=== PATIENT | female | born 1940 | race Caucasian/White ===

== ENCOUNTER 2022-09-22 21:16 | Outpatient (CLI) | payer MEDICARE, OTHER, SELFPAY | END 2022-09-22 21:17 | disposition home or self-care (01) | LOC: AMB 10-17 21:17 | PROVIDERS: PCP Family Medicine; Visit Provider Emergency Medicine Emergency Medical Services | DX: R41.82 Altered mental status, unspecified (principal); R26.9 Unspecified abnormalities of gait and mobility | CPT/HCPCS: A0425; A0427 ==

== ENCOUNTER 2022-09-22 21:48 | Emergency (ER) | payer MEDICARE, OTHER, SELFPAY ==
--- NOTE | 2022-09-22 21:58 | ED_ITS ---
HPI - General Adult General Chief complaint: Neuro Symptoms/Altered Deficit Stated complaint: Stroke Symptoms Time Seen by Provider: 09/22/22 21:57 History of Present Illness HPI narrative: This 81-year-old female comes in by ambulance because of brief episodes of tilting to the left. This started initially 5 hours ago and lasted for about a minute where she felt like she was going to fall over to the left. She recovered after about a minute and then again this happened similarly a bit later. Another episode with similar symptoms lasted about 5 minutes perhaps. She feels back to normal now at this time. Her states that she had different speech at that time. She does not report any headache. She states that she takes a baby aspirin daily. Related Data Previous Rx's Medication Instructions Recorded alprazolam 0.25 mg tablet 0.25 mg PO TID PRN anxiety #24 tabs 06/01/22 Allergies Allergy/AdvReac Type Severity Reaction Status Date / Time No Known Drug Allergies Allergy Verified 09/22/22 21:59 Review of Systems Status of ROS: Reports: 10 or more systems reviewed and unremarkable except as noted in History and below Narrative: Constitutional: No fevers, no weight gain or loss. Eyes: No discharge. No vision changes. HENT: No congestion, no sore throat, no ear pain. Cardiovascular: No chest pain, no palpitations. Respiratory: No shortness of breath, no wheezes, no cough. Gastrointestinal: No abdominal pain, no vomiting, no diarrhea. Genitourinary: No dysuria, no hematuria. Musculoskeletal: Normal range of motion. Skin: No rashes, no pruritis. Neurological: Brief episodes of tilting to the left as described above. Endo/Heme/Allergies: No bruising or bleeding. No polydipsia. Pysch: no suicidality, no anxiety, no insomnia. All other systems reviewed and are negative. Exam Narrative: Exam Narrative: Constitutional: Well-developed, well-nourished, no acute distress. HEENT: Normocephalic, atraumatic. Neck: Normal range of motion. Nontender. Supple. Heart: Regular. No murmurs. Normal rate. Intact distal pulses. Lungs: Clear to auscultation. No chest discomfort. No wheezes, rhonchi, or rales. Abdomen: Normal bowel sounds. Nontender. No rebound tenderness. Genitalia: Deferred. Back: No midline tenderness. Normal range of motion. Extremities: Normal range of motion. No injury. Skin: Intact. No rash. Warm. No erythema or pallor. Neurologic: No altered sensation. No weakness. Alert and oriented. No facial asymmetry. Tongue is midline. [id number] is normal. No pronator drift. Heel to lizama is normal. Exercise Physiology Professor strength is equal bilaterally. Psychiatric: No suicidality. No anxiety or depression. No insomnia. Nursing notes and vitals signs are reviewed. Const: Vital Signs, click to edit/add: Vital Signs - 24 hr 09/22/22 21:59 Temperature 97.4 F L Pulse Rate [Pulse Oximeter] 56 L Respiratory Rate 16 Blood Pressure [Ri ght Upper Arm] 161/90 H Pulse Oximetry 99 Oxygen Delivery Me thod Room Air Course Vital Signs Vital signs: Initial Vital Signs Temperature 97.4 F L 09/22/22 21:59 Temperature Source Temporal Artery Scan 09/22/22 21:59 Pulse Rate 56 L 09/22/22 21:59 Respiratory Rate 16 09/22/22 21:59 Blood Pressure 161/90 H 09/22/22 21:59 Blood Pressure Mean 113 09/22/22 21:59 Pulse Oximetry 99 09/22/22 21:59 Oxygen Delivery Method 09/22/22 21:59 Vital Signs Temperature 97.4 F L 09/22/22 21:59 Pulse Rate 56 L 09/22/22 21:59 Respiratory Rate 16 09/22/22 21:59 Blood Pressure 161/90 H 09/22/22 21:59 Pulse Oximetry 99 09/22/22 21:59 Oxygen Delivery Method 09/22/22 21:59 Temperature 97.4 F L 09/22/22 21:59 Pulse Rate 56 L 09/22/22 21:59 Respiratory Rate 16 09/22/22 21:59 Blood Pressure 161/90 H 09/22/22 21:59 Pulse Oximetry 99 09/22/22 21:59 Oxygen Delivery Method 09/22/22 21:59 Medical Decision Making MDM Narrative Medical decision making narrative: This patient comes in with brief episodes of tilting to the left and during this time her states that her speech was not so clear. These episodes happened 3 or 4 times in the past fiber 6 hours prior to arrival here. Each 1 lasted about a minute except 1 of the had a duration of about 5 minutes. Upon arrival here she has completely normal vital signs and neurologic exam. She does not have any complaints. CT imaging of the head shows no acute findings. Additionally her labs returned with reassuring results. This patient does seem to have symptoms suspicious for a transient ischemic attack. She is taking a baby aspirin daily. Throughout her stay here she has been feeling completely normal and wishes to return home. I did advise her to increase her aspirin to a full strength aspirin daily. I gave signs and symptoms that would indicate a need for return and re-evaluation and otherwise advised her to follow-up with her primary physician in the next week or so Lab Data Labs: Lab Results 09/22/22 09/22/22 09/22/22 Range/Units 22:46 22:46 22:46 WBC 7.67 (4.50-11.00) K/uL RBC 4.19 (4.00-5.20) m/uL Hgb 13.4 (12.0-16.0) gm/dL Hct 39.5 (33.0-51.0) % MCV 94 (80-100) fL MCH 32 (26-34) pg MCHC 34 (32-36) gm/dL RDW Coeff of Claudia 12.0 (11.5-15.5) % Plt Count 172 (140-440) K/uL Neut % (Auto) 60.4 (42.0-72.0) % Lymph % (Auto) 28.6 (20-44) % Warrick % (Auto) 8.3 (0.0-11.0) % Eos % (Auto) 1.7 (0.0-7.0) % Baso % (Auto) 0.3 (0.0-3.0) % Neut # (Auto) 4.64 (1.7-7.0) K/uL Lymph # (Auto) 2.19 (0.90-2.90) K/uL Warrick # (Auto) 0.60 (0.00-0.90) K/UL Eos # (Auto) 0.13 (0.00-0.50) K/uL Baso # (Auto) 0.02 (0.00-0.30) K/uL Abs Immat Gran (auto) 0.05 (0.00-0.30) K/uL Imm/Tot Granulo (auto) 0.7 % Sodium 140 (135-149) mmol/L Potassium 4.1 (3.6-5.1) mmol/L Chloride 106 (96-114) mmol/L Carbon Dioxide 26 (20-32) mmol/L BUN 28 (7-30) mg/dL Creatinine 1.0 (0.5-1.5) mg/dL Estimated Creat Clear 41.30 Estimated GFR 57 ml/min Glucose 148 H (60-115) mg/dL Calcium 10.1 (8.4-10.6) mg/dL POC Troponin I 0.00 L (0.01-0.04) ng/ml Imaging Data CT scan - head: Radiologist's impression: Normal noncontrast CT of the head for the patient`s age. Mild diffuse cerebral atrophy consistent with patient`s age. ECG Data Attestation: I personally reviewed and interpreted this ECG as follows: Interpretation: Sinus bradycardia, rate is 56 beats per minute. There are no specific ST or T- wave abnormalities. Discharge Plan Discharge Clinical Impression: Transient ischemic attack Patient Disposition: Home w/ Parent or Adult Condition: Improved Additional Instructions: Increase aspirin from baby aspirin strength to full-strength. Follow-up with primary physician in the next week or so. Return if recurrent or worsening symptoms happen. Prescriptions: No Action alprazolam 0.25 mg tablet 0.25 mg PO TID PRN (Reason: anxiety) Qty: 24 1RF Follow Up/Referrals: Beau Wayne MD [Primary Care Provider] - Stand Alone Forms: [employer] Info Instructions
[2022-09-22 21:59] VITALS: BP 161/90; PULSE 56; RESP 16; TEMP 36.3; O2SAT 99; BMI 28.1
--- NOTE | 2022-09-22 22:20 | CRLHL7_ITS ---
For Patients: As a result of the Century Cures Act, medical imaging exams and procedure reports are released immediately into your electronic medical record. You may view this report before your referring provider. If you have questions, please contact your health care provider. INDICATION: TIA symptoms. Sudden onset of confusion, dizziness, right facial droop, which has resolved. COMPARISON: None available. TECHNIQUE: CT examination of the head was performed with 3 mm thick axial and 2 mm thick coronal and sagittal sections without intravenous contrast. Images were obtained from the vertex of the skull through the skull base, and I examined the images with the brain and bone windows. Please note that all CT scans at this facility use dose modulation, iterative reconstruction, and/or weight-based dosing when appropriate to reduce radiation dose to as low as reasonably achievable. FINDINGS: : There is mild dilatation of the ventricles and sulci representing age-appropriate atrophy. The brain is otherwise normal in appearance for the patient`s age on today`s study, with no sign of mass lesion, mass effect, hemorrhage, or edema. Incidental note is made of a partially empty sella, a common finding in a patient of this age. The visualized portions of the orbits are normal in appearance. The visualized portions of the paranasal sinuses and mastoids are clear. The osseous structures are normal in their appearance with no sign of abnormality in the skull base or calvarium. IMPRESSION: Normal noncontrast CT of the head for the patient`s age. Mild diffuse cerebral atrophy consistent with patient`s age. Please note that all CT scans at this facility use dose modulation, iterative reconstruction, and/or weight-based dosing when appropriate to reduce radiation dose to as low as reasonably achievable. Dictated by Rohith Treadwell MD @ 09/22/2022 10:45:44 PM (Electronically Signed)
[2022-09-22 22:53] LABS: Basophils Absolute Auto 0.02 K/uL (0.00-0.30); Basophils Percent Auto 0.3 % (0.0-3.0); Eosinophils Absolute Auto 0.13 K/uL (0.00-0.50); Eosinophils Percent Auto 1.7 % (0.0-7.0); Hematocrit 39.5 % (33.0-51.0); Hemoglobin* 13.4 gm/dL (12.0-16.0); Immature Granulocytes Abs Auto 0.05 K/uL (0.00-0.30); Immature Granulocytes Pct Auto 0.7 %; Lymphocytes Absolute Auto 2.19 K/uL (0.90-2.90); Lymphocytes Percent Auto 28.6 % (20-44); Mean Corpuscular HGB Conc 34 gm/dL (32-36); Mean Corpuscular Hemoglobin 32 pg (26-34); Mean Corpuscular Volume 94 fL (80-100); Monocytes Percent Auto 8.3 % (0.0-11.0); Neutrophils Absolute Auto 4.64 K/uL (1.7-7.0); Neutrophils Percent Auto 60.4 % (42.0-72.0); Platelet Count* 172 K/uL (140-440); Red Blood Count 4.19 m/uL (4.00-5.20); White Blood Count* 7.67 K/uL (4.50-11.00)
[2022-09-22 22:59] LABS: Slide Review Reflex No
[2022-09-22 23:05] LABS: Chloride* 106 mmol/L (96-114); Potassium* 4.1 mmol/L (3.6-5.1); Sodium* 140 mmol/L (135-149)
[2022-09-22 23:08] LABS: Blood Urea Nitrogen* 28 mg/dL (7-30); Carbon Dioxide* 26 mmol/L (20-32); Estimated Glomerular Filt Rate 57 ml/min; Glucose* 148 mg/dL (60-115)
[2022-09-22 23:09] LABS: Calcium* 10.1 mg/dL (8.4-10.6)
[2022-09-22 23:16] VITALS: BP 145/52; RESP 14; O2SAT 97
== END 2022-09-22 23:59 | disposition home or self-care (01) ==
PROVIDERS: Emergency Provider Emergency Medicine Emergency Medical Services; PCP Family Medicine
DX: G45.9 Transient cerebral ischemic attack, unspecified (principal)
CPT/HCPCS: 36415; 70450; 80048; 85025; 93005; 99285

== ENCOUNTER 2023-12-19 09:18 | Outpatient (CLI) | payer MEDICARE, OTHER, SELFPAY | END 2023-12-19 09:19 | disposition home or self-care (01) | PROVIDERS: PCP Family Medicine; Visit Provider Family Medicine | DX: I10 Essential (primary) hypertension (principal); E03.9 Hypothyroidism, unspecified; E78.5 Hyperlipidemia, unspecified | CPT/HCPCS: 80048; 80061; 84443 ==

== ENCOUNTER 2024-04-02 21:10 | Emergency (ER) | payer MEDICARE, OTHER, SELFPAY ==
[2024-04-02 21:32] VITALS: BP 145/72; PULSE 66; RESP 20; TEMP 36.7; BMI 26.6
--- NOTE | 2024-04-02 21:38 | ED.EAR ---
HPI - Ear Problem General Time Seen by Provider: 21:38 Date Seen: 04/02/24 Chief complaint: Ear/Nose/Throat Problem Stated complaint: rubber tip of hearing aid stuck in R ear Time Seen by Provider: 04/02/24 21:26 Source: patient, family and RN notes reviewed Mode of arrival: ambulatory Limitations: no limitations History of Present Illness HPI Narrative: This 83-year-old female presents with her with concern of her hearing aid tip lodged in her right ear. She was noting problems with her hearing aid today. Later they noted that the rubber tip was not on the end of it. She denies any pain at this point. Related Data Home Medications ?Medication ?Instructions ?Recorded ?Confirmed aspirin 325 mg tablet 325 mg PO QDAY 04/14/23 04/02/24 Previous Rx's ?Medication ?Instructions ?Recorded omeprazole 20 mg capsule,delayed 20 mg PO QDAY #90 caps 12/04/23 release hydrochlorothiazide 25 mg tablet 25 mg PO QAM #90 tabs 12/19/23 levothyroxine 75 mcg tablet 75 mcg PO QDAY #90 tabs 12/19/23 metoprolol succinate 100 mg 100 mg PO QDAY #90 tabs 12/19/23 tablet,extended release 24 hr simvastatin 40 mg tablet 40 mg PO QHS #90 tabs 12/19/23 Allergies Allergy/AdvReac Type Severity Reaction Status Date / Time tetanus toxoid, adsorbed Allergy Unknown Unknown Verified 04/02/24 21:33 Review of Systems Narrative: As per HPI. 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) Health care directive on file ?Z78.9 - Other specified health status (ICD-10) Surgical History History of hand surgery ?Z98.890 - Other specified postprocedural states (ICD-10) Status post coronary artery stent placement (1999) ?Z95.5 - Presence of coronary angioplasty implant and graft (ICD-10) History of surgery on right wrist ?Z98.890 - Other specified postprocedural states (ICD-10) History of shoulder surgery ?Z98.890 - Other specified postprocedural states (ICD-10) History of partial surgical removal of colon (1992) ?Z90.49 - Acquired absence of other specified parts of digestive tract (ICD-10) History of cataract extraction ?Z98.49 - Cataract extraction status, unspecified eye (ICD-10) Family History Other Diabetes Social History Smoking Status: Never smoker Little interest or pleasure in doing things: nearly every day Feeling down, depressed, or hopeless: nearly every day Exam Const: Vital Signs, click to edit/add: Vital Signs - 24 hr 04/02/24 21:32 Temperature 98.0 F Pulse Rate [Right Pulse Oximeter] 66 Respiratory Rate 20 Blood Pressure [Ri ght Upper Arm] 145/72 H This patient is alert, interactive, no apparent distress. Hard of hearing. They have the hearing aids and I can see the small dark fox tip on the other hearing aid. She has some wax in the right ear canal, this was removed and then can see the underlying small tip far down in the ear canal, seems to be juxtaposed along the tympanic membrane. I had nursing staff help hold lighting, use an alligator to try to [place] removed this. It is so far down in the canal that she is not tolerating it and it is quite painful with these attempts. Thus, aborted trying any further attempts. The ENT Dr. Lombardo can see her tomorrow here at 915am. Documenting provider has reviewed patient's vital signs: yes Course Vital Signs Vital signs: Initial Vital Signs Temperature 98.0 F 04/02/24 21:32 Temperature Source Temporal Artery Scan 04/02/24 21:32 Pulse Rate 66 04/02/24 21:32 Respiratory Rate 20 04/02/24 21:32 Blood Pressure 145/72 H 04/02/24 21:32 Blood Pressure Mean 96 04/02/24 21:32 Blood Pressure Position Sitting 04/02/24 21:32 Vital Signs Temperature 98.0 F 04/02/24 21:32 Pulse Rate 66 04/02/24 21:32 Respiratory Rate 20 04/02/24 21:32 Blood Pressure 145/72 H 04/02/24 21:32 Temperature 98.0 F 04/02/24 21:32 Pulse Rate 66 04/02/24 21:32 Respiratory Rate 20 04/02/24 21:32 Blood Pressure 145/72 H 04/02/24 21:32 Discharge Plan Discharge Clinical Impression: Acute foreign body of right ear canal Qualifiers: Encounter type: initial encounter Qualified Code(s): T16.1XXA - Foreign body in right ear, initial encounter Patient Disposition: Home, Self-Care Condition: Stable Instructions: Ear Foreign Body (ED) Additional Instructions: Leave your ear canal alone until you see ENT tomorrow. Present to the [facility] at 9:15 a.m. tomorrow morning here at the [facility]. You will need to let the medical front desk specialist know that you were seen in the ER and that I have spoken with Dr. Lombardo, he stated for you to be added to the schedule at that time. Please bring this paperwork with, you can show them this as well. Activity Level: Activity as Tolerated Prescriptions: No Action aspirin 325 mg tablet 325 mg PO QDAY hydrochlorothiazide 25 mg tablet 25 mg PO QAM Qty: 90 3RF levothyroxine 75 mcg tablet 75 mcg PO QDAY Qty: 90 3RF metoprolol succinate 100 mg tablet extended release 24 hr 100 mg PO QDAY Qty: 90 3RF simvastatin 40 mg tablet 40 mg PO QHS Qty: 90 3RF omeprazole 20 mg capsule,delayed release(DR/EC) 20 mg PO QDAY Qty: 90 3RF Follow Up/Referrals: Beau Wayne MD [Primary Care Provider] - Stand Alone Forms: [email or web address] Info Instructions
[2024-04-02 22:08] VITALS: BP 135/70; PULSE 62; RESP 20; TEMP 36.7
[2024-04-02 22:09] VITALS: BP 135/70; PULSE 62; RESP 20; TEMP 36.7
== END 2024-04-02 22:09 | disposition home or self-care (01) ==
PROVIDERS: Emergency Provider Family Medicine; PCP Family Medicine
DX: T16.1XXA Foreign body in right ear, initial encounter (principal)
CPT/HCPCS: 69200; 99282; 99283

== ENCOUNTER 2025-03-17 09:16 | Outpatient (CLI) | payer MEDICARE, OTHER, SELFPAY | END 2025-03-17 09:17 | disposition home or self-care (01) | PROVIDERS: PCP Family Medicine; Visit Provider Family Medicine | DX: E78.2 Mixed hyperlipidemia (principal); E03.9 Hypothyroidism, unspecified; I10 Essential (primary) hypertension | CPT/HCPCS: 80048; 80061; 84443 ==

== ENCOUNTER 2025-07-09 12:58 | Inpatient (IN) | payer MEDICARE, OTHER, SELFPAY ==
[2025-07-09] VITALS (8 sets, daily range): BP systolic 109–144; BP diastolic 60–67; PULSE 51–61; RESP 16–18; TEMP 36.1–37.1; O2SAT 94–99; BMI 25.5; BMI 26.0
--- NOTE | 2025-07-09 13:19 | CRLHL7_ITS ---
For Patients: As a result of the Century Cures Act, medical imaging exams and procedure reports are released immediately into your electronic medical record. You may view this report before your referring provider. If you have questions, please contact your health care provider. INDICATION: Back pain. Fever. Weakness. History of colon cancer. TECHNIQUE: CT chest, abdomen and pelvis acquired with 78 cc of Isovue 370 IV contrast. COMPARISON: None available. FINDINGS: CHEST: Cardiovascular structures: Aortic atherosclerosis. The thoracic aorta and main pulmonary arteries are normal in caliber. Coronary artery calcifications. Heart size is within normal limits. Mediastinum and jazmine: No pathologic lymphadenopathy. Lungs: No pneumothorax. Central airways are patent. Emphysema with mild bilateral scarring and atelectasis. Incidental calcified granuloma in the left lower lobe. Lungs otherwise clear. Pleura and pericardium: No effusions. Chest wall and axilla: Unremarkable. ABDOMEN AND PELVIS: Liver: Unremarkable. Spleen: Unremarkable. Pancreas: Unremarkable. Gallbladder and bile ducts: Borderline dilatation of the gallbladder with diffuse wall heterogeneity. Partially calcified stone is present near the fundus. Complex septated cystic focus near the fundus is also present. No biliary ductal dilatation. Kidneys: No urolithiasis, hydronephrosis or suspicious lesion. Adrenal glands: Unremarkable. GI tract: No obstruction or focal inflammatory changes. No free air, free fluid or suspicious fluid collection. Vascular structures: Atherosclerotic disease. There is high-grade narrowing of the superior mesenteric artery origin. No SMA thrombus demonstrated. Lymph nodes: Unremarkable. Pelvic Organs: Unremarkable. Bones: No acute or suspicious abnormality. Degenerative changes spine and pelvis, with chronic thoracic compression fractures. IMPRESSION: 1. No evidence of acute disease in the chest. 2. Borderline dilatation of the gallbladder with diffuse wall heterogeneity and cholelithiasis. Findings may represent chronic or possible early acute cholecystitis. Attention on clinical follow-up recommended as indicated. No biliary ductal dilatation. 3. 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 No findings to suggest evolving acute mesenteric ischemia. Dictated by Wesly Clemons MD @ 07/09/2025 3:02:16 PM Please note that all CT scans at this facility use dose modulation, iterative reconstruction, and/or weight-based dosing when appropriate to reduce radiation dose to as low as reasonably achievable. Dictated by: Wesly Clemons MD @ 07/09/2025 15:02:32 (Electronically Signed)
--- NOTE | 2025-07-09 13:23 | ED.GENADULT ---
HPI - General Adult General Chief complaint: Weakness Stated complaint: Weakness Time Seen by Provider: 07/09/25 13:03 History of Present Illness HPI narrative: Patient is an 84-year-old white female with history of hyperthyroidism, anxiety, hypertension, fatigue and anorexia presents with continued fatigue and weakness over the last week. She has reports that her health is generally good and she felt well up until about a week ago read just developed generalized weakness, she has got an occasional low back discomfort worse with movement. She has had no other specific complaints. She has had no inability take fluids but her reports that she was somewhat ?shaky? but that is gotten better. She has had no marked fever , she has had no dysuria. She had some labs done about a week ago that looked pretty unremarkable. TSH was normal, urinalysis was abnormal in terms of urobilinogen but otherwise look fairly normal. Denies her skin being yellow but has not been had very good fluid her food intake but is and it is improved with the last day her reports. They live in [place]. They see Dr. Saldana. Related Data Home Medications ?Medication ?Instructions ?Recorded ?Confirmed aspirin 325 mg tablet 325 mg PO QDAY 04/14/23 07/09/25 Previous Rx's ?Medication ?Instructions ?Recorded hydrochlorothiazide 25 mg tablet 25 mg PO QAM #90 tabs 03/17/25 levothyroxine 75 mcg tablet 75 mcg PO QDAY #90 tabs 03/17/25 metoprolol succinate 100 mg 100 mg PO QDAY #90 tabs 03/17/25 tablet,extended release 24 hr omeprazole 20 mg capsule,delayed 20 mg PO QDAY #90 caps 03/17/25 release simvastatin 40 mg tablet 40 mg PO QHS #90 tabs 03/17/25 Allergies Allergy/AdvReac Type Severity Reaction Status Date / Time tetanus toxoid, adsorbed Allergy Unknown Unknown Verified 07/04/25 11:10 Review of Systems Status of ROS: Reports: 6 or more systems reviewed and unremarkable except as noted in History and below PFSH PFS Medical History Cerumen impaction ?H61.20 - Impacted cerumen, unspecified ear (ICD-10) Granuloma annulare ?L92.0 - Granuloma annulare (ICD-10) Health care directive on file ?Z78.9 - Other specified health status (ICD-10) Surgical History History of hand surgery ?Z98.890 - Other specified postprocedural states (ICD-10) Status post coronary artery stent placement (1999) ?Z95.5 - Presence of coronary angioplasty implant and graft (ICD-10) History of surgery on right wrist ?Z98.890 - Other specified postprocedural states (ICD-10) History of shoulder surgery ?Z98.890 - Other specified postprocedural states (ICD-10) History of partial surgical removal of colon (1992) ?Z90.49 - Acquired absence of other specified parts of digestive tract (ICD-10) History of cataract extraction ?Z98.49 - Cataract extraction status, unspecified eye (ICD-10) Family History Other Diabetes Social History Smoking Status: Never smoker Second hand tobacco smoke exposure: No How often do you have a drink containing alcohol: never AUDIT-C Alcohol total score: 0 Non-prescribed substance use: denies use Exam Narrative: Exam Narrative: Objective: Patient's vital signs look largely unremarkable her systolic pressure is a little elevated, she is afebrile Alert orient x3 No scleral icterus that I can detect mouth is dry neck is supple chest clear heart rhythm regular with 2/6 systolic murmur abdomen benign no findings of abdominal tenderness or rebound negative CVA tenderness Extremities are no edema neurologic nonfocal. Normal peripheral perfusion noted. Const: Vital Signs, click to edit/add: Vital Signs - 24 hr 07/09/25 13:02 07/09/25 13:18 07/09/25 15:03 Temperature 97.3 F L 97.0 F L Pulse Rate [Pulse Oximeter] 51 L 53 L Respiratory Rate 16 18 Blood Pressure [Ri ght Upper Arm] 144/61 H 142/60 H Pulse Oximetry 96 95 99 Oxygen Delivery Me thod Room Air Room Air Course Vital Signs Vital signs: Initial Vital Signs Temperature 97.3 F L 07/09/25 13:02 Temperature Source Temporal Artery Scan 07/09/25 13:02 Pulse Rate 51 L 07/09/25 13:02 Respiratory Rate 16 07/09/25 13:02 Blood Pressure 144/61 H 07/09/25 13:02 Blood Pressure Mean 88 07/09/25 13:02 Blood Pressure Position Sitting 07/09/25 13:02 Pulse Oximetry 96 07/09/25 13:02 Oxygen Delivery Method Room Air 07/09/25 13:02 Vital Signs Temperature 97.3 F L 07/09/25 13:02 Pulse Rate 51 L 07/09/25 13:02 Respiratory Rate 16 07/09/25 13:02 Blood Pressure 144/61 H 07/09/25 13:02 Pulse Oximetry 96 07/09/25 13:02 Oxygen Delivery Method Room Air 07/09/25 13:02 Temperature 97.0 F L 07/09/25 15:03 Pulse Rate 53 L 07/09/25 15:03 Respiratory Rate 18 07/09/25 15:03 Blood Pressure 142/60 H 07/09/25 15:03 Pulse Oximetry 99 07/09/25 15:03 Oxygen Delivery Method Room Air 07/09/25 15:03 Medications Administered Medications: Discontinued Medications Generic Name Dose Route Start Last Admin Trade Name Ismaelq PRN Reason Stop Dose Admin Sodium Chloride 500 mls @ 500 mls/hr 07/09/25 13:17 07/09/25 15:53 0.9 % Sodium Chloride 500 Ml IV 07/09/25 14:16 Infused .Q1H ONE Infusion Medical Decision Making [facility] Narrative Medical decision making narrative: [age] year white female with recently fairly unremarkable lab studies other than urobilinogen in her urine, with persistent weakness over about a week. It sounds like she did have some chills perhaps even mild rigors. For that reason I am going to get a CT of her abdomen pelvis will get blood cultures x2, give her IV fluid, check her urinalysis again and a urine culture, check electrolytes labs. Differential is broad including abnormal thyroid function in adequate thyroid replacement, acute coronary syndrome, intra-abdominal pathology such as diverticulitis, pyelonephritis, bacteremia. At this point she does not appear septic. She will also get viral studies done. Disposition pending findings above. Addendum 3:40 p.m.: Patient's CT scan shows diffuse gallbladder wall heterogeneity partially calcified stone present in the fundus there is a complex septated cystic focus near the fundus also there is no biliary duct dilatation noted. On ultrasound there is some abnormal septation near the fundus consistent with the CT, there is a stone in the gallbladder neck area. The common bile duct is normal size for age which measures at largest about 8 mm. The patient has a normal white count slightly elevated CRP. Has a negative troponin negative white count, negative viral studies and lactate of 1.8. Lipase is normal at 70. LFTs are elevated with total bilirubin being 2.8, direct bilirubin 2.1, AST 134, ALT 107 alk-phos 322. At this point she appears to have normal for age common bile duct, with mild early cholecystitis. I think that would explain her symptomology of back pain and weakness. Discussed with Dr. Styles our general surgeon senior interaction designer today who will review her case and make determination of treatment planning. At this point she may be a candidate for cholecystectomy and intraoperative cholangiogram. But would be a surgeons determination. 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 Lab Data Labs: Lab Results 07/09/25 Range/Units 13:36 WBC 8.04 (4.50-11.00) K/uL RBC 4.19 (4.00-5.20) m/uL Hgb 13.4 (12.0-16.0) gm/dL Hct 39.7 (33.0-51.0) % MCV 95 (80-100) fL MCH 32 (26-34) pg MCHC 34 (32-36) gm/dL RDW Coeff of Claudia 12.2 (11.5-15.5) % Plt Count 290 (140-440) K/uL Neut % (Auto) 74.1 H (42.0-72.0) % Lymph % (Auto) 17.2 L (20-44) % Gem % (Auto) 5.8 (0.0-11.0) % Eos % (Auto) 1.6 (0.0-7.0) % Baso % (Auto) 0.9 (0.0-3.0) % Neut # (Auto) 6.00 (1.7-7.0) K/uL Lymph # (Auto) 1.40 (0.90-2.90) K/uL Gem # (Auto) 0.50 (0.00-0.90) K/UL Eos # (Auto) 0.13 (0.00-0.50) K/uL Baso # (Auto) 0.07 (0.00-0.30) K/uL Abs Immat Gran (auto) 0.03 (0.00-0.30) K/uL Imm/Tot Granulo (auto) 0.4 % Sodium 138 (135-149) mmol/L Potassium 3.3 L (3.6-5.1) mmol/L Chloride 96 (96-114) mmol/L Carbon Dioxide 33 H (20-32) mmol/L Anion Gap 9 (7-15) mEq/L BUN 27 (7-30) mg/dL Creatinine 1.1 (0.5-1.5) mg/dL Estimated Creat Clear 35.64 Estimated GFR 50 ml/min Glucose 151 H (60-115) mg/dL Lactate 1.8 (0.5-1.9) mmol/L Calcium 10.4 (8.4-10.6) mg/dL Total Bilirubin 2.8 H (0.1-1.5) mg/dL Direct Bilirubin 2.1 H (0.0-0.5) mg/dL AST 134 H (12-35) U/L ALT 107 H (4-35) U/L Alkaline Phosphatase 322 H (40-150) U/L Troponin I < 0.01 (0.01-0.04) ng/mL C-Reactive Protein 1.5 H (0.5-1.0) mg/dL Total Protein 7.6 (6.0-8.3) g/dL Albumin 4.1 (3.3-5.0) g/dL Amylase 76 (18-89) U/L Lipase 70 (23-300) U/L TSH 2.510 (0.270-4.20) uIU/mL SARS-CoV-2 (PCR) Negative SARS-CoV-2 (Negative) Influenza Type A (PCR) Negative PCR FLU A (Negative) Influenza Type B (PCR) Negative PCR FLU B (Negative) RSV (PCR) Negative PCR RSV (Negative) Discharge Plan Discharge Clinical Impression: Weakness, Acute cholecystitis, Cholelithiasis Prescriptions: No Action aspirin 325 mg tablet 325 mg PO QDAY hydrochlorothiazide 25 mg tablet 25 mg PO QAM Qty: 90 3RF levothyroxine 75 mcg tablet 75 mcg PO QDAY Qty: 90 3RF metoprolol succinate 100 mg tablet extended release 24 hr 100 mg PO QDAY Qty: 90 3RF omeprazole 20 mg capsule,delayed release(DR/EC) 20 mg PO QDAY Qty: 90 3RF simvastatin 40 mg tablet 40 mg PO QHS Qty: 90 3RF Follow Up/Referrals: Beau Wayne MD [Primary Care Provider, Family Practice]
[2025-07-09 13:46] LABS: Lactate* 1.8 mmol/L (0.5-1.9)
[2025-07-09 14:01] LABS: Hematocrit 39.7 % (33.0-51.0); Hemoglobin* 13.4 gm/dL (12.0-16.0); Immature Granulocytes Abs Auto 0.03 K/uL (0.00-0.30); Immature Granulocytes Pct Auto 0.4 %; Mean Corpuscular HGB Conc 34 gm/dL (32-36); Mean Corpuscular Hemoglobin 32 pg (26-34); Mean Corpuscular Volume 95 fL (80-100); RDW Coefficient of Variation % 12.2 % (11.5-15.5); Red Blood Count 4.19 m/uL (4.00-5.20); White Blood Count* 8.04 K/uL (4.50-11.00)
[2025-07-09 14:07] LABS: Albumin* 4.1 g/dL (3.3-5.0); Chloride* 96 mmol/L (96-114)
[2025-07-09 14:08] LABS: Potassium* 3.3 mmol/L (3.6-5.1); Sodium* 138 mmol/L (135-149)
[2025-07-09 14:09] LABS: Lymphocytes Absolute Auto 1.40 K/uL (0.90-2.90); Slide Review Reflex No
[2025-07-09 14:10] LABS: Blood Urea Nitrogen* 27 mg/dL (7-30); Creatinine* 1.1 mg/dL (0.5-1.5); Est. Creatinine Clearance* 35.64; Estimated Glomerular Filt Rate 50 ml/min
[2025-07-09 14:11] LABS: Alanine Aminotransferase* 107 U/L (4-35); Alkaline Phosphatase* 322 U/L (40-150); Anion Gap 9 mEq/L (7-15); Aspartate Amino Transferase* 134 U/L (12-35); Bilirubin Direct* 2.1 mg/dL (0.0-0.5); Bilirubin Total* 2.8 mg/dL (0.1-1.5); Calcium* 10.4 mg/dL (8.4-10.6); Carbon Dioxide* 33 mmol/L (20-32); Glucose* 151 mg/dL (60-115); Total Protein* 7.6 g/dL (6.0-8.3)
--- NOTE | 2025-07-09 14:21 | CRLHL7_ITS ---
For Patients: As a result of the Century Cures Act, medical imaging exams and procedure reports are released immediately into your electronic medical record. You may view this report before your referring provider. If you have questions, please contact your health care provider. INDICATION: Abnormal LFTs. Abnormal CT. TECHNIQUE: Ultrasound abdomen limited. Sonographic images of the right upper quadrant were obtained using fox-scale and color Doppler images. COMPARISON: CT chest, abdomen and pelvis 07/09/2025. FINDINGS: Liver: Homogeneous in echotexture. No focal lesion or evidence of intrahepatic biliary ductal dilatation. Normal directional flow in the main portal vein. Gallbladder: Borderline distended with layering sludge in the body and fundus. Multicystic focus near the fundus is similar in appearance. No wall thickening or pericholecystic fluid. Common bile duct: 8 mm. Pancreas: Unremarkable as imaged. Right kidney: 8.7 cm in pole to pole length. No hydronephrosis. Vasculature: Visualized aorta and IVC are normal. No free fluid evident. IMPRESSION: Borderline dilated gallbladder with layering sludge. Cholelithiasis is better demonstrated on recent CT. No biliary ductal dilatation. Multicystic focus at the gallbladder fundus may represent developmental variation or sequela of prior/chronic cholecystitis. Dictated by Wesly Clemons MD @ 07/09/2025 4:22:40 PM Dictated by: Wesly Clemons MD @ 07/09/2025 16:23:16 (Electronically Signed)
[2025-07-09 14:31] LABS: PCR FLU A Negative PCR FLU A (Negative); PCR FLU B Negative PCR FLU B (Negative); PCR RSV Negative PCR RSV (Negative); SARS PCR* Negative SARS-CoV-2 (Negative)
[2025-07-09] MEDS: 0.9 % SODIUM CHLORIDE 500 ML 500 ML IV (15:00)
[2025-07-09] MEDS: PIPERACILLIN/TAZOBACTAM 3.375 GM in 0.9 % SODIUM CHLORIDE Mini-bag 100 ML IVPB ×2 (16:31→22:56)
--- NOTE | 2025-07-09 16:39 | CRLHL7_ITS ---
For Patients: As a result of the Century Cures Act, medical imaging exams and procedure reports are released immediately into your electronic medical record. You may view this report before your referring provider. If you have questions, please contact your health care provider. INDICATION: Dilated common bile duct, elevated bilirubin TECHNIQUE: Limited 1.5 T MRI of the abdomen was performed with T2 weighted imaging; in and out of phase imaging; 3D MRCP imaging was obtained. Exam was terminated early due to patient discomfort. No intravenous contrast was administered. COMPARISON: Same day CT chest abdomen pelvis and abdominal ultrasound FINDINGS: Lungs: The lung bases are clear. No pleural or pericardial effusion. Liver: Unremarkable noncontrast appearance of the liver. Scattered subcentimeter T2 hyperintensities too small to accurately characterize, but likely benign cysts. Biliary tree and gallbladder: Mildly distended gallbladder with punctate stone or polyp at the fundus measuring 4 mm. The gallbladder wall is not overtly thickened, however there are areas of trabeculation, particularly at the distal component maybe a combination of chronic inflammation and adenomyomatosis. Mildly dilated common bile duct measuring up to 8 mm. Round filling defect at the distal common bile duct measuring 3 mm (/), indeterminate for choledocholithiasis or prominent ampullary tissue. No intrahepatic biliary dilation. Spleen: Unremarkable Pancreas: Unremarkable noncontrast appearance of the pancreatic parenchyma. No pancreatic duct dilation. Cystic lesion within the pancreatic body measuring 5 mm (09/01). This may represent a side branch IPMN, however does not require further follow-up due to the patient`s age. Adrenal glands: Unremarkable. Kidneys and ureters: No definite renal masses or hydronephrosis. GI tract: No evidence of obstruction or inflammation. Vasculature: The IVC and aorta are normal in caliber. Lymph nodes: No lymphadenopathy. Abdominal wall: Unremarkable Bones: Degenerative change of the imaged spine. IMPRESSION: 1. Mildly dilated common bile duct measuring with punctate round filling defect at the distal common bile duct that is indeterminate for choledocholithiasis or prominent ampullary tissue. Consider further evaluation with ERCP/EUS 2. Distended gallbladder with punctate stone or polyp at the fundus. The gallbladder wall is not overtly thickened, however there are areas of trabeculation, particularly at the distal and that represent a combination of chronic inflammation and adenomyomatosis. Component of superimposed acute cholecystitis is difficult to exclude. Dictated by Madie Mar MD @ 07/10/2025 7:48:26 AM (Electronically Signed)
--- NOTE | 2025-07-09 17:20 | PM.IMHP1 ---
Assessment and Plan Assessment and plan (1) Acute cholecystitis: Problem comment: - CT abdomen and pelvis showed borderline dilatation of the gallbladder with diffuse wall heterogeneity and cholelithiasis. Findings may represent chronic or possible early acute cholecystitis. - right upper quadrant ultrasound showed multi cystic focus at the gallbladder fundus that may represent developmental variation or sequela of prior /chronic cholecystitis. - ED provider contacted our surgeon who accepted the patient and will perform cholecystectomy tomorrow 07/10. - Surgeon ordered MRI abdomen without contrast - will start patient on Zosyn - IV fluids - NPO after midnight - general surgery will follow up - coronary artery disease status post stenting in 1999, currently patient is asymptomatic, no chest discomfort or dyspnea on exertion. Patient is able to walk without any cardiac symptoms. - patient is on aspirin 325 mg daily she took her does on the day of admission 07/09 and will need her daily dose tomorrow. Status: Acute (2) Cholelithiasis: Problem comment: As above Status: Acute (3) Coronary artery disease status post coronary stent insertion: Problem comment: - coronary artery disease status post stenting in 1999 - currently patient is asymptomatic, no chest discomfort or dyspnea on exertion. Patient is able to walk without any cardiac symptoms. - patient is on aspirin 325 mg daily she took her dose on the day of admission 07/09, she will need to take her aspirin dose as patient has a stent. Status: Acute (4) Hypokalemia: Problem comment: ordered potassium chloride 40 mg orally AM labs Status: Acute (5) Superior mesenteric artery stenosis: Problem comment: - CT scan showed High-grade stenosis of the superior mesenteric artery origin. No findings to suggest evolving acute mesenteric ischemia. - lactate within normal limits - Patient denies bowel movement changes or blood in the stool. She does not have any abdominal symptoms after eating. - patient will need follow-up as an outpatient with PCP. Status: Acute (6) Hypertension: Problem comment: Continue metoprolol but hold hydrochlorothiazide before surgery Status: Acute (7) Hyperlipidemia: Problem comment: Continue statin Status: Acute (8) Hypothyroidism: Problem comment: Continue levothyroxine Status: Acute (9) Gastroesophageal reflux disease: Problem comment: Continue PPI Status: Acute (10) Hearing loss: Problem comment: Has hearing aids Status: Acute (11) Macular degeneration: Problem comment: With significant vision loss Status: Acute (12) Malignant neoplasm of colon: Status: Acute Total Time Spent Total Time Spent: Time spent: Today I spent 75 minutes seeing the patient, discussing the patient with ER staff, reviewing Expanse and EPIC notes/diagnostics, discussing the care plan with our care time that includes social work, PT/OT, pharmacy, RT, retirement and documenting my impressions and plan in the medical record. Hospitalist- H&P: HPI History of Present Illness Date Seen: 07/09/25 Chief complaint: Weakness Narrative: Nalini Stark is a 84 year old female with past medical history of hypertension, hyperlipidemia, coronary artery disease status post stenting in 1999, hypothyroidism and GERD who presents to the ED complaining of feeling unwell for the past week, in addition to having back pain. Patient denies any fevers, abdominal pain, nausea vomiting, bowel movement changes or blood in the stool. She does not have any abdominal symptoms after eating. Patient has coronary artery disease status post stenting in 1999, currently patient is asymptomatic, no chest discomfort or dyspnea on exertion. Patient is able to walk without any cardiac symptoms. She is on aspirin 325 mg daily she took her dose on the day of admission 07/09. at the ED patient was hemodynamically stable. Labs were unremarkable except for elevated total and direct bilirubin, mild elevation of AST , ALT and alkaline phosphatase. potassium levels were mildly low at 3.3. CT abdomen and pelvis showed borderline dilatation of the gallbladder with diffuse wall heterogeneity and cholelithiasis. Findings may represent chronic or possible early acute cholecystitis. in addition CT scan showed High-grade stenosis of the superior mesenteric artery origin. No findings to suggest evolving acute mesenteric ischemia. right upper quadrant ultrasound showed multi cystic focus at the gallbladder fundus that may represent developmental variation or sequela of prior /chronic cholecystitis. ED provider contacted our surgeon who accepted the patient and will perform cholecystectomy tomorrow. 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 (ICD-10) Health care directive on file ?Z78.9 - Other specified health status (ICD-10) Surgical History (Updated 07/09/25 @ 18:24 by Vanessa Strong MD) Coronary artery disease status post coronary stent insertion ?I25.10 - Atherosclerotic heart disease of [place] coronary artery without angina pectoris (ICD-10) ?Z95.5 - Presence of coronary angioplasty implant and graft (ICD-10) History of hand surgery ?Z98.890 - Other specified postprocedural states (ICD-10) Status post coronary artery stent placement (1999) ?Z95.5 - Presence of coronary angioplasty implant and graft (ICD-10) History of surgery on right wrist ?Z98.890 - Other specified postprocedural states (ICD-10) History of shoulder surgery ?Z98.890 - Other specified postprocedural states (ICD-10) History of partial surgical removal of colon (1992) ?Z90.49 - Acquired absence of other specified parts of digestive tract (ICD-10) History of cataract extraction ?Z98.49 - Cataract extraction status, unspecified eye (ICD-10) Family History Other Diabetes Social History Smoking Status: Never smoker Second hand tobacco smoke exposure: No How often do you have a drink containing alcohol: never AUDIT-C Alcohol total score: 0 Non-prescribed substance use: denies use Meds Home Medications and Allergies Home Medications ?Medication ?Instructions ?Recorded ?Confirmed ?Type aspirin 325 mg tablet 325 mg PO QDAY 04/14/23 07/09/25 History hydrochlorothiazide 25 mg tablet 25 mg PO QAM #90 tabs 03/17/25 07/09/25 Rx levothyroxine 75 mcg tablet 75 mcg PO QDAY #90 tabs 03/17/25 07/09/25 Rx metoprolol succinate 100 mg 100 mg PO QDAY #90 tabs 03/17/25 07/09/25 Rx tablet,extended release 24 hr omeprazole 20 mg capsule,delayed 20 mg PO QDAY #90 caps 03/17/25 07/09/25 Rx release simvastatin 40 mg tablet 40 mg PO QHS #90 tabs 03/17/25 07/09/25 Rx Allergies Allergy/AdvReac Type Severity Reaction Status Date / Time tetanus toxoid, adsorbed Allergy Unknown Unknown Verified 07/04/25 11:10 Exam Narrative: Exam Narrative: Physical exam GENERAL: Comfortable, no acute distress. HEAD AND NECK: Patient is blind and wearing hearing aids. CARDIOVASCULAR: RRR. Normal S1, S2. No murmurs. RESPIRATORY: Clear to auscultation B/L. Good air entry B/L. No wheezes or rhonchi. GASTROINTESTINAL: Soft, Not distended, not tender to palpation. No guarding or rigidity. NEUROLOGY: Alert, awake, oriented X 3. Normal speech. PSYCH: Normal mood, normal affect. Const: Vital Signs, click to edit/add: Vital Signs - 24 hr 07/09/25 13:02 07/09/25 13:18 07/09/25 15:03 Temperature 97.3 F L 97.0 F L Pulse Rate [Pulse Oximeter] 51 L 53 L Respiratory Rate 16 18 Blood Pressure [Ri ght Upper Arm] 144/61 H 142/60 H Pulse Oximetry 96 95 99 Oxygen Delivery Me thod Room Air Room Air Hospitalist - H&P: Result Labs Labs: Short CBC 07/09/25 Range/Units 13:36 WBC 8.04 (4.50-11.00) K/uL Hgb 13.4 (12.0-16.0) gm/dL Hct 39.7 (33.0-51.0) % Plt Count 290 (140-440) K/uL BMP 07/09/25 13:36 Sodium 138 Potassium 3.3 L Chloride 96 Carbon Dioxide 33 H BUN 27 Creatinine 1.1 Glucose 151 H Calcium 10.4 Cardiac Enzymes 07/09/25 Range/Units 13:36 Troponin I < 0.01 (0.01-0.04) ng/mL Liver Function 07/09/25 Range/Units 13:36 Total Bilirubin 2.8 H (0.1-1.5) mg/dL Direct Bilirubin 2.1 H (0.0-0.5) mg/dL AST 134 H (12-35) U/L ALT 107 H (4-35) U/L Alkaline Phosphatase 322 H (40-150) U/L Albumin 4.1 (3.3-5.0) g/dL ECG Attestation: I personally reviewed and interpreted this ECG as follows: ECG interpretation date: 07/09/25 Interpretation: Sinus bradycardia. T-wave inversion in both chest and limb leads. No ST elevation or depression. Imaging CT scan - abdomen: Attestation: I have reviewed the pertinent imaging results. Radiologist's impression: INDICATION: Back pain. Fever. Weakness. History of colon cancer. TECHNIQUE: CT chest, abdomen and pelvis acquired with 78 cc of Isovue 370 IV contrast. COMPARISON: None available. FINDINGS: CHEST: Cardiovascular structures: Aortic atherosclerosis. The thoracic aorta and main pulmonary arteries are normal in caliber. Coronary artery calcifications. Heart size is within normal limits. Mediastinum and jazmine: No pathologic lymphadenopathy. Lungs: No pneumothorax. Central airways are patent. Emphysema with mild bilateral scarring and atelectasis. Incidental calcified granuloma in the left lower lobe. Lungs otherwise clear. Pleura and pericardium: No effusions. Chest wall and axilla: Unremarkable. ABDOMEN AND PELVIS: Liver: Unremarkable. Spleen: Unremarkable. Pancreas: Unremarkable. Gallbladder and bile ducts: Borderline dilatation of the gallbladder with diffuse wall heterogeneity. Partially calcified stone is present near the fundus. Complex septated cystic focus near the fundus is also present. No biliary ductal dilatation. Kidneys: No urolithiasis, hydronephrosis or suspicious lesion. Adrenal glands: Unremarkable. GI tract: No obstruction or focal inflammatory changes. No free air, free fluid or suspicious fluid collection. Vascular structures: Atherosclerotic disease. There is high-grade narrowing of the superior mesenteric artery origin. No SMA thrombus demonstrated. Lymph nodes: Unremarkable. Pelvic Organs: Unremarkable. Bones: No acute or suspicious abnormality. Degenerative changes spine and pelvis, with chronic thoracic compression fractures. IMPRESSION: 1. No evidence of acute disease in the chest. 2. Borderline dilatation of the gallbladder with diffuse wall heterogeneity and cholelithiasis. Findings may represent chronic or possible early acute cholecystitis. Attention on clinical follow-up recommended as indicated. No biliary ductal dilatation. 3. 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 No findings to suggest evolving acute mesenteric ischemia. Dictated by Wesly Clemons MD @ 07/09/2025 3:02:16 PM Please note that all CT scans at this facility use dose modulation, iterative reconstruction, and/or weight-based dosing when appropriate to reduce radiation dose to as low as reasonably achievable. Dictated by: Wesly Clemons MD @ 07/09/2025 15:02:32 US - abdomen: Radiologist's impression: INDICATION: Abnormal LFTs. Abnormal CT. TECHNIQUE: Ultrasound abdomen limited. Sonographic images of the right upper quadrant were obtained using fox-scale and color Doppler images. COMPARISON: CT chest, abdomen and pelvis 07/09/2025. FINDINGS: Liver: Homogeneous in echotexture. No focal lesion or evidence of intrahepatic biliary ductal dilatation. Normal directional flow in the main portal vein. Gallbladder: Borderline distended with layering sludge in the body and fundus. Multicystic focus near the fundus is similar in appearance. No wall thickening or pericholecystic fluid. Common bile duct: 8 mm. Pancreas: Unremarkable as imaged. Right kidney: 8.7 cm in pole to pole length. No hydronephrosis. Vasculature: Visualized aorta and IVC are normal. No free fluid evident. IMPRESSION: Borderline dilated gallbladder with layering sludge. Cholelithiasis is better demonstrated on recent CT. No biliary ductal dilatation. Multicystic focus at the gallbladder fundus may represent developmental variation or sequela of prior/chronic cholecystitis. Dictated by Wesly Clemons MD @ 07/09/2025 4:22:40 PM Dictated by: Wesly Clemons MD @ 07/09/2025 16:23:16
[2025-07-09] MEDS: POTASSIUM CHLORIDE 10 MEQ CAPSULE ER 40 MEQ PO (18:16)
[2025-07-09] MEDS: LACTATED RINGERS 1000 ML 1,000 ML 75 ML IV (18:17)
--- NOTE | 2025-07-09 19:15 | PC.NURSE ---
End of Shift: Patient admitted to 255. Pleasant and cooperative. Afebrile. Denies pain. Tolerating regular diet with no nausea. Will be NPO at midnight. Up with SBA.
[2025-07-09] MEDS: SIMVASTATIN 40 MG TABLET PO (20:51)
[2025-07-10] VITALS (22 sets, daily range): BP systolic 93–149; BP diastolic 48–71; PULSE 57–93; RESP 10–20; TEMP 35.7–37.2; O2SAT 90–99
[2025-07-10] MEDS: PIPERACILLIN/TAZOBACTAM 3.375 GM in 0.9 % SODIUM CHLORIDE Mini-bag 100 ML IVPB (04:18)
[2025-07-10] MEDS: SODIUM CHLORIDE 0.9 % (FLUSH) 10 ML SYRINGE 5 ML IVF ×2 (04:20→20:48)
[2025-07-10 06:03] LABS: Hematocrit 35.9 % (33.0-51.0); Hemoglobin* 12.0 gm/dL (12.0-16.0); Mean Corpuscular HGB Conc 33 gm/dL (32-36); Mean Corpuscular Hemoglobin 32 pg (26-34); Mean Corpuscular Volume 96 fL (80-100); Red Blood Count 3.76 m/uL (4.00-5.20); White Blood Count* 6.20 K/uL (4.50-11.00)
[2025-07-10 06:07] LABS: Slide Review Reflex No
[2025-07-10] MEDS: LEVOTHYROXINE 75 MCG TABLET PO (06:17)
[2025-07-10] MEDS: OMEPRAZOLE 20 MG CAPSULE DR PO (06:18)
[2025-07-10 06:21] LABS: Chloride* 101 mmol/L (96-114)
[2025-07-10 06:22] LABS: Albumin* 3.6 g/dL (3.3-5.0); Potassium* 3.2 mmol/L (3.6-5.1); Sodium* 136 mmol/L (135-149)
[2025-07-10 06:24] LABS: Blood Urea Nitrogen* 21 mg/dL (7-30); Creatinine* 1.0 mg/dL (0.5-1.5); Est. Creatinine Clearance* 39.20; Estimated Glomerular Filt Rate 56 ml/min
[2025-07-10 06:25] LABS: Alanine Aminotransferase* 119 U/L (4-35); Alkaline Phosphatase* 307 U/L (40-150); Anion Gap 4 mEq/L (7-15); Aspartate Amino Transferase* 152 U/L (12-35); Bilirubin Total* 2.3 mg/dL (0.1-1.5); Calcium* 9.7 mg/dL (8.4-10.6); Carbon Dioxide* 31 mmol/L (20-32); Glucose* 110 mg/dL (60-115); Total Protein* 6.5 g/dL (6.0-8.3)
--- NOTE | 2025-07-10 06:27 | PC.NURSE ---
End of shift report [id number]: VSS. Afebrile. Denies pain. Denies N/V. Pt was NPO at midnight. Patient ambulates SBA. Bowel sounds active. Pt reports passing gas. Pt had 2 formed BMs overnight. Pt is resting in bed, call light within reach.?
--- NOTE | 2025-07-10 07:15 | CRLHL7_ITS ---
For Patients: As a result of the Century Cures Act, medical imaging exams and procedure reports are released immediately into your electronic medical record. You may view this report before your referring provider. If you have questions, please contact your health care provider. Indication: Laparoscopic cholecystectomy Technique: One fluoroscopic image submitted. Fluoroscopic time 51.1 seconds. IMPRESSION: Unsuccessful intraoperative cholangiogram. Contrast not within the biliary tree. Dictated by Daniel Tafoya MD @ 07/10/2025 10:47:53 AM (Electronically Signed)
--- NOTE | 2025-07-10 07:26 | PM.GSCN ---
History of Present Illness Consult details Date Seen: 07/10/25 Consult date: 07/10/25 Narrative: Patient presented to the emergency department last night with over a week of fatigue and weakness. It started a week ago from Monday. She did not feel like she had energy to get out of bed. They went to urgent care which showed normal labs and vitals. It was recommended that she go home with a bland diet and increase her water intake. She did not have any improvement over the week, which is what prompted her to come in. She denies any abdominal pain. No pain with eating, but has had a decrease in appetite. No nausea or vomiting. No fevers. She has never had anything like this before. Her surgical history is positive for a colectomy secondary to colon cancer. 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 - Granuloma annulare (ICD-10) Health care directive on file ?Z78.9 - Other specified health status (ICD-10) Surgical History (Updated 07/09/25 @ 18:24 by Vanessa Strong MD) Coronary artery disease status post coronary stent insertion ?I25.10 - Atherosclerotic heart disease of [place] coronary artery without angina pectoris (ICD-10) ?Z95.5 - Presence of coronary angioplasty implant and graft (ICD-10) History of hand surgery ?Z98.890 - Other specified postprocedural states (ICD-10) Status post coronary artery stent placement (1999) ?Z95.5 - Presence of coronary angioplasty implant and graft (ICD-10) History of surgery on right wrist ?Z98.890 - Other specified postprocedural states (ICD-10) History of shoulder surgery ?Z98.890 - Other specified postprocedural states (ICD-10) History of partial surgical removal of colon (1992) ?Z90.49 - Acquired absence of other specified parts of digestive tract (ICD-10) History of cataract extraction ?Z98.49 - Cataract extraction status, unspecified eye (ICD-10) Family History Other Diabetes Social History What is your current living situation?: I presently have a place to live Problems where you live: no known problems Problems where you live details: N/A In the past 12 months, utilities in danger of being shut off: no In past 12 months, lack of transportation kept you from medical appts, meetings, work, or getting things needed for daily living: no In the past 12 mos, have been you worried that your food would run out before you had money to buy more?: never true In the past 12 mos, the food you bought just didn't last and you didn't have money to buy more?: never true Highest level of school completed/degree received: Associate degree: occupational, technical, vocational program Smoking Status: Former smoker Second hand tobacco smoke exposure: No How often do you have a drink containing alcohol: never AUDIT-C Alcohol total score: 0 Non-prescribed substance use: denies use Caffeine: Yes How often does anyone, including family, friends and others, physically hurt you: never How often does anyone, including family, friends and others, insult or talk down to you: never How often does anyone, including family, friends and others, threaten you with harm: never How often does anyone, including family, friends and others, scream or curse at you: never service: No Meds Home Medications and Allergies Home Medications ?Medication ?Instructions ?Recorded ?Confirmed ?Type aspirin 325 mg tablet 325 mg PO DAILY 04/14/23 07/10/25 History hydrochlorothiazide 25 mg tablet 25 mg PO QAM #90 tabs 03/17/25 07/09/25 Rx levothyroxine 75 mcg tablet 75 mcg PO DAILY 07/10/25 07/10/25 History metoprolol succinate 100 mg 100 mg PO DAILY 07/10/25 07/10/25 History tablet,extended release 24 hr omeprazole 20 mg capsule,delayed 20 mg PO DAILY 07/10/25 07/10/25 History release simvastatin 40 mg tablet 40 mg PO HS 07/10/25 07/10/25 History Allergies Allergy/AdvReac Type Severity Reaction Status Date / Time tetanus toxoid, adsorbed Allergy Unknown Unknown Verified 07/04/25 11:10 Exam Narrative: Exam Narrative: General: Alert and oriented, no acute distress Respiratory: Equal breath rise bilaterally, maintained on room air CV: Well perfused Abdomen: Soft, nontender and nondistended. Lower midline incision and Pfannenstiel incision well healed. Const: Vital Signs, click to edit/add: Vital Signs - 24 hr 07/09/25 13:02 07/09/25 13:18 07/09/25 15:03 Temperature 97.3 F L 97.0 F L Pulse Rate Pulse Rate [Pulse Oximeter] 51 L 53 L Respiratory Rate 16 18 Blood Pressure [Ri ght Arm] Blood Pressure [Ri ght Upper Arm] 144/61 H 142/60 H Pulse Oximetry 96 95 99 Oxygen Delivery Me thod Room Air Room Air 07/09/25 17:57 07/09/25 19:00 07/09/25 20:55 Temperature 97.5 F L 98.8 F Pulse Rate Pulse Rate [Pulse Oximeter] 54 L 59 L 59 L Respiratory Rate 18 16 16 Blood Pressure [Ri ght Arm] 109/66 133/67 Blood Pressure [Ri ght Upper Arm] Pulse Oximetry 96 94 Oxygen Delivery Me thod Room Air Room Air 07/09/25 22:09 07/09/25 23:00 07/10/25 03:00 Temperature 98.5 F 98.7 F Pulse Rate 61 Pulse Rate [Pulse Oximeter] 57 L 61 Respiratory Rate 18 16 Blood Pressure [Ri ght Arm] 115/64 118/49 L Blood Pressure [Ri ght Upper Arm] Pulse Oximetry 94 93 Oxygen Delivery Me thod Room Air Room Air Results Labs Labs: Abnormal lab results 07/09/25 07/10/25 Range/Units 13:36 05:46 RBC 3.76 L (4.00-5.20) m/uL Neut % (Auto) 74.1 H (42.0-72.0) % Lymph % (Auto) 17.2 L (20-44) % Potassium 3.3 L 3.2 L (3.6-5.1) mmol/L Carbon Dioxide 33 H (20-32) mmol/L Anion Gap 4 L (7-15) mEq/L Glucose 151 H (60-115) mg/dL Total Bilirubin 2.8 H 2.3 H (0.1-1.5) mg/dL Direct Bilirubin 2.1 H (0.0-0.5) mg/dL AST 134 H 152 H (12-35) U/L ALT 107 H 119 H (4-35) U/L Alkaline Phosphatase 322 H 307 H (40-150) U/L C-Reactive Protein 1.5 H (0.5-1.0) mg/dL Diabetes panel 07/09/25 07/10/25 Range/Units 13:36 05:46 Sodium 138 136 (135-149) mmol/L Potassium 3.3 L 3.2 L (3.6-5.1) mmol/L Chloride 96 101 (96-114) mmol/L Carbon Dioxide 33 H 31 (20-32) mmol/L BUN 27 21 (7-30) mg/dL Creatinine 1.1 1.0 (0.5-1.5) mg/dL Glucose 151 H 110 (60-115) mg/dL Calcium 10.4 9.7 (8.4-10.6) mg/dL AST 134 H 152 H (12-35) U/L ALT 107 H 119 H (4-35) U/L Alkaline Phosphatase 322 H 307 H (40-150) U/L Total Protein 7.6 6.5 (6.0-8.3) g/dL Albumin 4.1 3.6 (3.3-5.0) g/dL Thyroid panel 07/09/25 Range/Units 13:36 TSH 2.510 (0.270-4.20) uIU/mL Calcium panel 07/09/25 07/10/25 Range/Units 13:36 05:46 Calcium 10.4 9.7 (8.4-10.6) mg/dL Albumin 4.1 3.6 (3.3-5.0) g/dL Pituitary panel 07/09/25 07/10/25 Range/Units 13:36 05:46 Sodium 138 136 (135-149) mmol/L Potassium 3.3 L 3.2 L (3.6-5.1) mmol/L Chloride 96 101 (96-114) mmol/L Carbon Dioxide 33 H 31 (20-32) mmol/L BUN 27 21 (7-30) mg/dL Creatinine 1.1 1.0 (0.5-1.5) mg/dL Glucose 151 H 110 (60-115) mg/dL Calcium 10.4 9.7 (8.4-10.6) mg/dL TSH 2.510 (0.270-4.20) uIU/mL Adrenal panel 07/09/25 07/10/25 Range/Units 13:36 05:46 Sodium 138 136 (135-149) mmol/L Potassium 3.3 L 3.2 L (3.6-5.1) mmol/L Chloride 96 101 (96-114) mmol/L Carbon Dioxide 33 H 31 (20-32) mmol/L BUN 27 21 (7-30) mg/dL Creatinine 1.1 1.0 (0.5-1.5) mg/dL Glucose 151 H 110 (60-115) mg/dL Calcium 10.4 9.7 (8.4-10.6) mg/dL Total Bilirubin 2.8 H 2.3 H (0.1-1.5) mg/dL AST 134 H 152 H (12-35) U/L ALT 107 H 119 H (4-35) U/L Alkaline Phosphatase 322 H 307 H (40-150) U/L Total Protein 7.6 6.5 (6.0-8.3) g/dL Albumin 4.1 3.6 (3.3-5.0) g/dL All other labs normal. Imaging Abdomen CT scan report/results: report reviewed and image reviewed Abdominal ultrasound report/results: report reviewed and image reviewed Additional studies: MRI: IMPRESSION: 1. Mildly dilated common bile duct measuring with punctate round filling defect at the distal common bile duct that is indeterminate for choledocholithiasis or prominent ampullary tissue. Consider further evaluation with ERCP/EUS 2. Distended gallbladder with punctate stone or polyp at the fundus. The gallbladder wall is not overtly thickened, however there are areas of trabeculation, particularly at the distal and that represent a combination of chronic inflammation and adenomyomatosis. Component of superimposed acute cholecystitis is difficult to exclude. Progress Note:A&P Assessment and plan (1) Acute cholecystitis: Status: Acute Assessment and Plan: Patient is an 84 yo F with over one week weakness and fatigue. Work up was obtained with imaging demonstrating a dilated gallbladder with presence of stones. There is some mild inflammation concerning for cholecystitis. An incidental finding of a complex septated cystic focus the fundus was also found. Lab work demonstrated elevated LFTs, including an elevation in the patient's direct bilirubin concerning for choledocholithiasis. An MRCP was obtained which showed a questionable common bile duct stone versus prominent ampulla. I had a detailed conversation with the patient regarding the diagnosis of cholecystitis and choledocholithiasis. We discussed the treatment options. Given the concern for a stone within the common bile duct I am recommending further evaluation with a cholangiogram, as well as a laparoscopic cholecystectomy. We discussed the risks of surgery (including but not limited to) the risks of bleeding, infection, injury to other structures in the abdomen including bile duct injury, bile leak and conversion to an open operation. We discussed the possibility that the patient's pain not improve with surgery. We discussed the possibility of permanent post-operative diarrhea that may require medical management. Additionally, the conceivably of complications requiring additional surgery or further hospitalization were also discussed including the risks of SD, respiratory failure, stroke and blood clots. The patient voiced an understanding of our conversation, had the opportunity to ask questions, agreed to accept the risks of surgery and asked that we proceed with surgery. Plan -OR for laparoscopic cholecystectomy and intraoperative cholangiogram
[2025-07-10] MEDS: LACTATED RINGERS 1000 ML 1,000 ML 75 ML IV (07:54)
[2025-07-10] MEDS: BUPIVACAINE 0.5% 30 ML INJECTION (07:56)
--- NOTE | 2025-07-10 08:41 | P.ANES_ITS ---
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
--- NOTE | 2025-07-10 08:41 | W.ANESCHARGE ---
Anesthesia Charges Start Date/Time Anesthesia Start Date: 07/10/25 Anesthesia Start Time: 07:34 Stop Date/Time Anesthesia Stop Date: 07/10/25 Anesthesia Stop Time: 10:00 Summary Extremes of Age - Over 70 or under 1: MDA Coding CPT Codes CPT Codes: ANESTH SURG UPPER ABDOMEN - 02559 ([id number]) P3 - PATIENT W/SEVERE SYS DISEASE, QK - RESPIRATORY CARE INSTRUCTOR 2-4 CNCRNT ANES PROC, QX - BOTTLING EQUIPMENT SALES REPRESENTATIVE SVC W/ MD MED DIRECTION Additional Codes: Summary - Extremes of Age - Over 70 or under 1: MDA ([id number])
[2025-07-10] MEDS: 0.9% SODIUM CHL 50 ML VIAL INJECTION (09:00)
--- NOTE | 2025-07-10 10:00 | P.ANES_ITS ---
Anesthesia Charges Start Date/Time Anesthesia Start Date: 07/10/25 Anesthesia Start Time: 07:34 Stop Date/Time Anesthesia Stop Date: 07/10/25 Anesthesia Stop Time: 10:00 Coding CPT Codes CPT Codes: ANESTH SURG UPPER ABDOMEN - 07312 ([id number]) P3 - PATIENT W/SEVERE SYS DISEASE, QK - OFFICE CLINICIAN 2-4 CNCRNT ANES PROC, QX - FORKLIFT MATERIAL HANDLER SVC W/ MD MED DIRECTION
--- NOTE | 2025-07-10 10:00 | W.ANESCHARGE ---
Anesthesia Charges Start Date/Time Anesthesia Start Date: 07/10/25 Anesthesia Start Time: 07:34 Stop Date/Time Anesthesia Stop Date: 07/10/25 Anesthesia Stop Time: 10:00 Coding CPT Codes CPT Codes: ANESTH SURG UPPER ABDOMEN - 71262 ([id number]) P3 - PATIENT W/SEVERE SYS DISEASE, QK - DOBBY LOOM FIXER 2-4 CNCRNT ANES PROC, QX - TRASH COLLECTOR TRUCK DRIVER SVC W/ MD MED DIRECTION
[2025-07-10 11:36] LABS: Bilirubin Direct* 1.4 mg/dL (0.0-0.5)
--- NOTE | 2025-07-10 11:46 | CRLHL7_ITS ---
For Patients: As a result of the Cures Act, medical imaging exams and procedure reports are released immediately into your electronic medical record. You may view this report before your referring provider. If you have questions, please contact your health care provider. INDICATION: : Sudden onset of shortness of breath after surgery COMPARISON: CT chest on July 09, 2025 TECHNIQUE: One view(s) of the chest FINDINGS: The cardiomediastinal silhouette and pulmonary vasculature are unremarkable. Chronic emphysematous changes. There is no focal airspace consolidation, pleural effusion, or pneumothorax. Minimal left basilar atelectasis. No displaced fractures. IMPRESSION: No acute cardiopulmonary process. Dictated by Chip Santa MD @ 07/10/2025 12:06:31 PM (Electronically Signed)
--- NOTE | 2025-07-10 11:46 | P.GSOP_ITS ---
Operative Note Date of procedure: 07/10/25 Pre-op diagnosis: Acute cholecystitis, possible choledocholithiasis Post-op diagnosis: Same Type of Procedure: 1. Laparoscopic cholecystectomy 2. Attempted cholangiogram, not performed Indications: Patient is an 84-year-old female presented to the emergency department with clinical workup concerning for cholecystitis. Due to the patient's elevated LFTs and imaging findings there was also concern for choledocholithiasis. Risks and benefits of operative intervention with a laparoscopic cholecystectomy and intraoperative cholangiogram were discussed at length with the patient. Risks included but was not limited to: Bleeding, infection, risk of damage to surrounding structures, possible need for additional procedures, possible need to convert to an open operation and postoperative complications such as pneumonia, pulmonary emboli or [place]. All questions and concerns were addressed with the patient agreeing to proceed. Procedure Description: After discussing the risks and benefits of the procedure, the patient signed informed consent.? The operative site was marked and the patient was brought to the operating room and placed on the operating table in supine position.? Care was taken to pad the patient's pressure points.?? The patient was then intubated by anesthesia.?? The operative site was then prepped and draped in the usual sterile fashion.? A time-out was then performed. Entrance to the abdomen was gained via a 5 mm Visiport in the left upper quadrant. The abdomen was insufflated and briefly surveyed for signs of injury. No evidence of injury. There were adhesions within the lower abdomen. These were away from my operative field with no need for lysis. An 11 mm umbilical port was placed as well as 2 working ports along the right costal margin. Patient was then placed in reverse Trendelenburg position with the right side up. The gallbladder fundus was dilated, enlarged and had a cystic mass. The fundus was able to be grasped and retracted cephalad. A small amount of dissection was needed to free the gallbladder from the duodenum and surrounding omentum. The infundibulum was grasped. A combination of hook cautery and blunt dissection was used to carefully dissect out the cystic duct and artery until they could clearly be seen entering the gallbladder without any intervening structures. The cystic artery was then ligated with 2 clips proximally and 1 clip distally before being transected with scissors. The gallbladder was then further dissected off the cystic plate to achieve the critical view. Once this was achieved the decision was made to proceed with a cholangiogram. A clip was placed distally on the gallbladder. A partial transection was created with scissors on the cystic duct. The biliary system was under pressure with expulsion of sludge and small stones. A cholangiogram catheter was then brought onto the operative field. Several attempts were made to pass the catheter into the cystic duct and common bile duct. This did not easily pass, with concern for a more proximal obstruction. The decision was made to abort the cholangiogram portion of the procedure. Two clips were applied proximally on the cystic duct and the duct was fully transected. An additional 0 looped Pr olene suture was placed below the clips to ensure ligation of the cystic stump. The gallbladder was then taken off of the liver bed. There were 2 small areas of arterial bleeding within the gallbladder fossa that was controlled with 5 mm clips for hemostasis. No evidence of bleeding at the end of the procedure. The small amount of bile and stones that had spilled was irrigated and suctioned. T he gallbladder was removed from the abdomen using an Endo-Catch bag. A 15 Mongolian ELINOR drain was placed through the right upper quadrant port site within the gallbladder fossa. The drain was secured to the skin with 2-0 nylon suture. All ports were removed under direct vision. The umbilical port fascia was closed with an 0 Vicryl stitch. The skin was closed with absorbable subcuticular suture. Instrument sponge and needle counts were correct at the end of the case. The patient was then woken and transferred to the PACU in stable condition. Findings: Acute cholecystitis. Cystic mass of the fundus. Cholangiogram procedure aborted, with concern for proximal obstruction. Anesthesia: GETA Surgeon: Dawn Abbott MD Estimated blood loss (mL): 25 Specimen: Gallbladder Condition: stable Disposition: PACU
[2025-07-10 12:03] LABS: HCO3 VBG 30 mmol/L (21-28); Hematocrit 39.2 % (33.0-51.0); Hemoglobin* 13.0 gm/dL (12.0-16.0); Mean Corpuscular HGB Conc 33 gm/dL (32-36); Mean Corpuscular Hemoglobin 32 pg (26-34); Mean Corpuscular Volume 97 fL (80-100); PCO2 VBG 47 mmHG (40-50); PO2 VBG 35.0 mmHG (25-47); Red Blood Count 4.06 m/uL (4.00-5.20); White Blood Count* 6.50 K/uL (4.50-11.00); pH VBG 7.406 (7.32-7.43)
[2025-07-10 12:07] LABS: Slide Review Reflex No
[2025-07-10 12:19] LABS: Lactate* 1.8 mmol/L (0.5-1.9)
--- NOTE | 2025-07-10 12:19 | P.IMPN_ITS ---
Assessment and Plan Assessment and plan (1) Acute dyspnea: Problem comment: - 07/10/2025: Sudden onset postop status post laparoscopic cholecystectomy. Differential diagnosis includes acute diastolic heart failure, volume overloaded state postop, acute myocardial infarction, COPD exacerbation, panic attack. I doubt direct complication of surgery she just had but still keep this in the differential. Does not appear to have pneumothorax, acute coronary syndrome, pulmonary embolism. - furosemide 40 mg IV x1 dose and monitor - Lawton catheter placed and monitor input and output - initiated discussion with family - will discuss with Dr. Abbott/surgeon auto parts counter person Status: Acute (2) Acute cholecystitis: Problem comment: - CT abdomen and pelvis showed borderline dilatation of the gallbladder with diffuse wall heterogeneity and cholelithiasis. Findings may represent chronic or possible early acute cholecystitis. - right upper quadrant ultrasound showed multi cystic focus at the gallbladder fundus that may represent developmental variation or sequela of prior /chronic cholecystitis. - ED provider contacted our surgeon who accepted the patient and will perform cholecystectomy tomorrow 07/10. - Surgeon ordered MRI abdomen without contrast - will start patient on Zosyn - IV fluids - NPO after midnight - general surgery will follow up - coronary artery disease status post stenting in 1999, currently patient is asymptomatic, no chest discomfort or dyspnea on exertion. Patient is able to walk without any cardiac symptoms. - patient is on aspirin 325 mg daily she took her does on the day of admission 07/09 and will need her daily dose tomorrow. 07/10/2025: Successful laparoscopic cholecystectomy. Unable to perform intraoperative cholangiogram. Discussed with Dr. Abbott. Will attempt to make arrangements for ERCP procedure in the next 1-2 days. Reviewed with patient, , son. Answered their questions. They understand. They are agreeable. Will follow with surgery. Status: Acute (3) Cholelithiasis: Problem comment: As above Status: Acute (4) Superior mesenteric artery stenosis: Problem comment: - CT scan showed High-grade stenosis of the superior mesenteric artery origin. No findings to suggest evolving acute mesenteric ischemia. - lactate within normal limits - Patient denies bowel movement changes or blood in the stool. She does not have any abdominal symptoms after eating. - patient will need follow-up as an outpatient with PCP. - will try to keep adequately hydrated Status: Acute (5) Hypokalemia: Problem comment: ordered potassium chloride 40 mg orally supplement and manage Status: Acute (6) Anxiety: Problem comment: - lorazepam 0.5 mg q.6 hours p.r.n. Status: Acute (7) Coronary artery disease status post coronary stent insertion: Problem comment: - coronary artery disease status post stenting in 1999 - currently patient is asymptomatic, no chest discomfort or dyspnea on exertion. Patient is able to walk without any cardiac symptoms. - patient is on aspirin 325 mg daily she took her dose on the day of admission 07/09, she will need to take her aspirin dose as patient has a stent. Status: Acute (8) Hypertension: Problem comment: Continue metoprolol but hold hydrochlorothiazide before surgery Status: Acute Plan 1. Reviewed impression, plans, recommendations with patient, , son 2. Received call back from [facility] indicating they will be able to perform the ERCP on 07/11/2025 at noon 3. Will make arrangements for patient to be discharged from our hospital and transferred to [facility] for the ERCP. She will then be transferred back to our hospital and we will readmit her after her ERCP. Reviewed the same with Dr. Vallejo, general surgeon, who will be involved with the patient throughout this process of remaining in our hospital until discharge tomorrow morning and readmission tomorrow afternoon after the ERCP 4. Answered patient's, 's, son's questions to their satisfaction 5. They are agreeable with above stated plans and recommendations Total Time Spent Total Time Spent: 70 minutes Subjective Date Seen: 07/10/25 Interval history: Admission history of present illness: ?84 year old female with past medical history of hypertension, hyperlipidemia, coronary artery disease status post stenting in 1999, hypothyroidism and GERD who presents to the ED complaining of feeling unwell for the past week, in addition to having back pain. Patient denies any fevers, abdominal pain, nausea vomiting, bowel movement changes or blood in the stool. She does not have any abdominal symptoms after eating. Patient has coronary artery disease status post stenting in 1999, currently patient is asymptomatic, no chest discomfort or dyspnea on exertion. Patient is able to walk without any cardiac symptoms. She is on aspirin 325 mg daily she took her dose on the day of admission 07/09. at the ED patient was hemodynamically stable. Labs were unremarkable except for elevated total and direct bilirubin, mild elevation of AST , ALT and alkaline phosphatase. potassium levels were mildly low at 3.3. CT abdomen and pelvis showed borderline dilatation of the gallbladder with diffuse wall heterogeneity and cholelithiasis. Findings may represent chronic or possible early acute cholecystitis. in addition CT scan showed High-grade stenosis of the superior mesenteric artery origin. No findings to suggest evolving acute mesenteric ischemia. right upper quadrant ultrasound showed multi cystic focus at the gallbladder fundus that may represent developmental variation or sequela of prior /chronic cholecystitis. ED provider contacted our surgeon who accepted the patient and will perform cholecystectomy tomorrow.? Patient underwent laparoscopic cholecystectomy today with Dr. Abbott. Unsuccessfully attempted intraoperative cholangiogram. Plan is to make arrangements for patient to have an ERCP sometime the neck is day or so to fur ther qualify whether not patient has choledocholithiasis. I assessed the patient in her hospital room postoperatively. Initially she is still waking up but indicates she feels well except for complaining of thirstiness. About 30-60 minutes after I 1st assessed her she complains of sudden onset of dyspnea, better when she sits up as opposed to when she is laying down. Denies chest heaviness, pressure, tightness, pain. Denies nausea or vomiting. Denies syncope or near-syncope. Denies palpitations or chest fluttering. Patient is rapidly assessed. Has JVD and hepatojugular reflux with head of bed elevated at 60?. Rales in both lung bases. No wheezing or rhonchi per se. Heart tones with regular rhythm, normal S1-S2. Systolic murmur left lower sternal border. Abdomen with active bowel sounds, soft. Trace edema pretibially bilaterally. Normal oxygen saturations. Exam Narrative: Exam Narrative: Patient is rapidly assessed. She is obviously anxious. Has JVD and hepatojugular reflux with head of bed elevated at 60?. Rales in both lung bases. No wheezing or rhonchi per se. Heart tones with regular rhythm, normal S1-S2. Systolic murmur left lower sternal border. Abdomen with active bowel sounds, soft. Trace edema pretibially bilaterally. Normal oxygen saturations. Const: Vital Signs, click to edit/add: Vital Signs - 24 hr 07/09/25 13:02 07/09/25 13:18 07/09/25 15:03 Temperature 97.3 F L 97.0 F L Pulse Rate Pulse Rate [Pulse Oximeter] 51 L 53 L Respiratory Rate 16 18 Blood Pressure Blood Pressure [Ri ght Arm] Blood Pressure [Ri ght Upper Arm] 144/61 H 142/60 H Pulse Oximetry 96 95 99 Oxygen Delivery Me thod Room Air Room Air 07/09/25 17:57 07/09/25 19:00 07/09/25 20:55 Temperature 97.5 F L 98.8 F Pulse Rate Pulse Rate [Pulse Oximeter] 54 L 59 L 59 L Respiratory Rate 18 16 16 Blood Pressure Blood Pressure [Ri ght Arm] 109/66 133/67 Blood Pressure [Ri ght Upper Arm] Pulse Oximetry 96 94 Oxygen Delivery Me thod Room Air Room Air 07/09/25 22:09 07/09/25 23:00 07/10/25 03:00 Temperature 98.5 F 98.7 F Pulse Rate 61 Pulse Rate [Pulse Oximeter] 57 L 61 Respiratory Rate 18 16 Blood Pressure Blood Pressure [Ri ght Arm] 115/64 118/49 L Blood Pressure [Ri ght Upper Arm] Pulse Oximetry 94 93 Oxygen Delivery Me thod Room Air Room Air 07/10/25 07:22 07/10/25 09:55 07/10/25 10:00 Temperature 96.4 F L Pulse Rate 57 L 64 64 Pulse Rate [Pulse Oximeter] Respiratory Rate 10 L 12 Blood Pressure 130/70 140/54 H Blood Pressure [Ri ght Arm] Blood Pressure [Ri ght Upper Arm] Pulse Oximetry 95 92 Oxygen Delivery Me thod Room Air 07/10/25 10:05 07/10/25 10:10 07/10/25 10:15 Temperature Pulse Rate 64 61 59 L Pulse Rate [Pulse Oximeter] Respiratory Rate 12 13 12 Blood Pressure 139/56 L 138/52 L 134/51 L Blood Pressure [Ri ght Arm] Blood Pressure [Ri ght Upper Arm] Pulse Oximetry 93 92 93 Oxygen Delivery Me thod 07/10/25 10:20 07/10/25 10:25 Temperature 96.9 F L Pulse Rate 59 L 61 Pulse Rate [Pulse Oximeter] Respiratory Rate 13 12 Blood Pressure 138/52 L 137/54 L Blood Pressure [Ri ght Arm] Blood Pressure [Ri ght Upper Arm] Pulse Oximetry 95 96 Oxygen Delivery Me thod Labs Labs: Laboratory Results - last 24 hr 07/09/25 07/10/25 07/10/25 13:36 05:46 11:09 WBC 8.04 6.20 RBC 4.19 3.76 L Hgb 13.4 12.0 Hct 39.7 35.9 MCV 95 96 MCH 32 32 MCHC 34 33 RDW Coeff of Claudia 12.2 Plt Count 290 234 Neut % (Auto) 74.1 H Lymph % (Auto) 17.2 L Mccone % (Auto) 5.8 Eos % (Auto) 1.6 Baso % (Auto) 0.9 Neut # (Auto) 6.00 Lymph # (Auto) 1.40 Mccone # (Auto) 0.50 Eos # (Auto) 0.13 Baso # (Auto) 0.07 Abs Immat Gran (auto) 0.03 Imm/Tot Granulo (auto) 0.4 VBG pH VBG pCO2 VBG pO2 VBG HCO3 Sodium 138 136 Potassium 3.3 L 3.2 L Chloride 96 101 Carbon Dioxide 33 H 31 Anion Gap 9 4 L BUN 27 21 Creatinine 1.1 1.0 Estimated Creat Clear 35.64 39.20 Estimated GFR 50 56 Glucose 151 H 110 Lactate 1.8 Calcium 10.4 9.7 Magnesium 1.5 Total Bilirubin 2.8 H 2.3 H Direct Bilirubin 2.1 H 1.4 H AST 134 H 152 H ALT 107 H 119 H Alkaline Phosphatase 322 H 307 H Troponin I < 0.01 C-Reactive Protein 1.5 H Total Protein 7.6 6.5 Albumin 4.1 3.6 Amylase 76 Lipase 70 TSH 2.510 SARS-CoV-2 (PCR) Negative SARS-CoV-2 Influenza Type A (PCR) Negative PCR FLU A Influenza Type B (PCR) Negative PCR FLU B RSV (PCR) Negative PCR RSV Lab Acknowledgement Test Added 07/10/25 07/10/25 07/10/25 11:58 12:15 12:15 WBC 6.50 RBC 4.06 Hgb 13.0 Hct 39.2 MCV 97 MCH 32 MCHC 33 RDW Coeff of Claudia Plt Count 221 Neut % (Auto) Lymph % (Auto) Mccone % (Auto) Eos % (Auto) Baso % (Auto) Neut # (Auto) Lymph # (Auto) Mccone # (Auto) Eos # (Auto) Baso # (Auto) Abs Immat Gran (auto) Imm/Tot Granulo (auto) VBG pH 7.406 VBG pCO2 47 VBG pO2 35.0 VBG HCO3 30 H Sodium Potassium Chloride Carbon Dioxide Anion Gap BUN Creatinine Estimated Creat Clear Estimated GFR Glucose Lactate 1.8 Calcium Magnesium Total Bilirubin Direct Bilirubin AST ALT Alkaline Phosphatase Troponin I C-Reactive Protein Total Protein Albumin Amylase Lipase TSH SARS-CoV-2 (PCR) Influenza Type A (PCR) Influenza Type B (PCR) RSV (PCR) Lab Acknowledgement Test Added Test Added Imaging Chest x-ray: Attestation: I have reviewed the pertinent imaging results. Radiologist's impression: Radiologist saw no acute cardiopulmonary processes. On my review appears patient has prominent interstitial markings consistent with heart failure. Also has findings of underlying emphysema, which is not new. ECG Attestation: I personally reviewed and interpreted this ECG as follows: Prior ECG tracings: available for review Interpretation: Normal sinus rhythm, heart rate [address] and T-wave abnormality inferiorly, unchanged from electrocardiogram dated 07/09/2025.
[2025-07-10 12:20] LABS: Albumin* 3.8 g/dL (3.3-5.0); Chloride* 100 mmol/L (96-114); Potassium* 3.5 mmol/L (3.6-5.1); Sodium* 138 mmol/L (135-149)
[2025-07-10 12:23] LABS: Alanine Aminotransferase* 126 U/L (4-35); Alkaline Phosphatase* 294 U/L (40-150); Anion Gap 9 mEq/L (7-15); Aspartate Amino Transferase* 150 U/L (12-35); Bilirubin Direct* 1.8 mg/dL (0.0-0.5); Bilirubin Total* 2.5 mg/dL (0.1-1.5); Blood Urea Nitrogen* 19 mg/dL (7-30); Calcium* 9.6 mg/dL (8.4-10.6); Carbon Dioxide* 29 mmol/L (20-32); Creatinine* 1.0 mg/dL (0.5-1.5); Est. Creatinine Clearance* 39.20; Estimated Glomerular Filt Rate 56 ml/min; Glucose* 195 mg/dL (60-115); Total Protein* 7.1 g/dL (6.0-8.3)
[2025-07-10 12:26] LABS: D Dimer Quantitative* 0.88 ug/ml (0.00-0.50)
[2025-07-10] MEDS: FUROSEMIDE 10 MG/ML inj 40 MG IVP (12:28)
[2025-07-10 12:38] LABS: NT Pro B Type NatriureticPept* 588 pg/mL (See Note)
[2025-07-10] MEDS: POTASSIUM CHLORIDE 10 MEQ CAPSULE ER 40 MEQ PO (16:55)
--- NOTE | 2025-07-10 18:34 | PC.NURSE ---
End of shift [id number] - Pt arrived from PACU at approximately 1040. Pt appeared sedate, family at bedside. Tolerating RA, unable to verbalize pain upon arrival. Pt reported feeling cold, Zoey sheppard provided for pt comfort. At approximately 1140 pt observed to become restless, stating that she it hurts. RN offered medication per JAN. Pt reported sudden onset SOB and reported I can't breathe to RN. RN alerted relief charge nurse, rapid response called. MD updated. EKG, labs, and imaging ordered per MD and pain medication given. Oxygen via nasal cannula provided for comfort. Lawton catheter placed per MD order and diuretic medication given per JAN. Pt reported I feel fine after pt event, no further complaints of SOB or pain from pt during shift. Tolerating advance of diet per MD order and fluids. Family at bedside, appears to be resting comfortably at end of shift with call light within reach.
[2025-07-10] MEDS: SIMVASTATIN 40 MG TABLET PO (20:48)
--- NOTE | 2025-07-10 22:29 | PC.NURSE ---
End of shift [id number]: Pt AxOx4, pleasant, and cooperative with cares. Lap sites remain CDI. ELINOR patent and draining minimal output. Lawton remaining patent and draining. Pt advanced to a regular diet, minimal appetite. Drinking fluids. Swallowed pills whole. NPO @ midnight, Pt reported understanding. Active ice to the abdomen. SCDs in place. Pt denies pain/CP/SOB/headache during shift. Pt requiring 1-2L NC during sleeping periods to maintain sats>90%. Call light within reach. ?
[2025-07-11] MEDS: LACTATED RINGERS 1000 ML 1,000 ML 75 ML IV (01:38)
[2025-07-11 03:00] VITALS: BP 140/56; PULSE 74; RESP 16; TEMP 36.4; O2SAT 90
[2025-07-11] MEDS: LEVOTHYROXINE 75 MCG TABLET PO (06:32)
--- NOTE | 2025-07-11 06:39 | PC.NURSE ---
The patient is pleasant and cooperative during cares. Upon initial assessment the patient reported a high level of back pain. PRN medication was given 2x throughout the night and was noted to have adequate relief. Lawton is patent and draining. NPO, and LR is infusing. The patient is going up to [facility] for an ERCP, and then will return to our floor. 3 lap sites and a ELINOR drain CDI on the patients abdomen with an ice pack. Slept intermittently throughout the night. Call light is within reach. Na DOZIER BSN
[2025-07-11 07:51] VITALS: BP 126/58; PULSE 80; RESP 16; TEMP 36.6; O2SAT 92
[2025-07-11 08:36] LABS: Hematocrit 36.1 % (33.0-51.0); Hemoglobin* 11.8 gm/dL (12.0-16.0); Immature Granulocytes Pct Auto 0.2 %; Mean Corpuscular HGB Conc 33 gm/dL (32-36); Mean Corpuscular Hemoglobin 32 pg (26-34); Mean Corpuscular Volume 98 fL (80-100); RDW Coefficient of Variation % 12.6 % (11.5-15.5); Red Blood Count 3.69 m/uL (4.00-5.20); White Blood Count* 12.38 K/uL (4.50-11.00)
[2025-07-11 08:39] LABS: Immature Granulocytes Abs Auto 0.00 K/uL (0.00-0.30); Lymphocytes Absolute Auto 1.70 K/uL (0.90-2.90); Slide Review Reflex No
[2025-07-11 08:42] LABS: Albumin* 3.5 g/dL (3.3-5.0); Chloride* 94 mmol/L (96-114); Potassium* 3.9 mmol/L (3.6-5.1); Sodium* 134 mmol/L (135-149)
--- NOTE | 2025-07-11 08:44 | P.DS_ITS ---
DS: Providers Provider Date Seen: 07/11/25 Date of admission: 07/09/25 17:30 Primary care physician: Beau Wayne MD Admitting Clinician: Dawn Abbott MD Consults: 07/09/25 17:43 Consult to Occupational Therapy [CONS] Routine Comment: Reason(s) for OT Consult:: Evaluate and Treat Any Restrictions?:: No Restrictions Consult to Physical Therapy [CONS] Routine Comment: Reason(s) for PT Consult:: Evaluate and Treat Any Restrictions?:: No Restrictions Consult to [employer]oles[employer] [CONS] Routine Comment: Reason for Consult:: Discharge Planning Needs Attending Physician on discharge: Sandhya Vallejo MD DS: Diagnosis Discharge Diagnosis (1) S/P laparoscopic cholecystectomy: Status: Acute (2) Choledocholithiasis: Status: Acute DS: Summary Hospital Course Hospital Course: 84-year-old female presented to the hospital with acute cholecystitis and possible choledocholithiasis. Patient underwent laparoscopic cholecystectomy yesterday. An intraoperative cholangiogram was attempted but was not successful. Patient had continued elevation of direct bilirubin and ERCP was arranged. Patient is transferred to [facility] for ERCP today and will return to [facility] for readmission Due to inavailability of beds at [facility]. Patient also developed acute dyspnea postoperatively. Her troponin was not elevated. Her chest x-ray showed increased vascular markings and Lasix was administered for volume overload. Patient continues to be on nasal cannula. Lawton catheter was placed for managing of urine output and continues to be in place. 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 Clinically, she denies having abdominal pain after eating. Patient has been kept slightly volume up and with blood pressure above normal. This was communicated with GI doctor who will be performing ERCP. Time Spent with Patient Time attestation: Total time spent providing and/or coordinating discharge services: Exam Narrative: Exam Narrative: general: Patient is sitting in the chair and does not appear to be in acute distress. Patient appears tired. Nasal cannula is in place. Abdomen: Abdomen is soft, not tender to palpation, not distended, ELINOR drain in the right upper quadrant. ELINOR drain with Bloody serosanguineous fluid. When attempting to strip the drain, patient has increased abdominal pain. Laparoscopic incisions are covered with Steri-Strips. Lawton catheter is in place. Const: Vital Signs, click to edit/add: Vital Signs - 24 hr 07/10/25 09:55 07/10/25 10:00 07/10/25 10:05 Temperature 96.4 F L Pulse Rate 64 64 64 Pulse Rate [Pulse Oximeter] Respiratory Rate 10 L 12 12 Blood Pressure 130/70 140/54 H 139/56 L Blood Pressure [Ri ght Arm] Pulse Oximetry 95 92 93 Oxygen Delivery Me thod Room Air Oxygen Flow Rate 07/10/25 10:10 07/10/25 10:15 07/10/25 10:20 Temperature Pulse Rate 61 59 L 59 L Pulse Rate [Pulse Oximeter] Respiratory Rate 13 12 13 Blood Pressure 138/52 L 134/51 L 138/52 L Blood Pressure [Ri ght Arm] Pulse Oximetry 92 93 95 Oxygen Delivery Me thod Oxygen Flow Rate 07/10/25 10:25 07/10/25 10:40 07/10/25 10:55 Temperature 96.9 F L 96.3 F L Pulse Rate 61 Pulse Rate [Pulse Oximeter] 93 Respiratory Rate 12 20 Blood Pressure 137/54 L Blood Pressure [Ri ght Arm] 137/48 L 143/60 H Pulse Oximetry 96 93 Oxygen Delivery Me thod Room Air Oxygen Flow Rate 07/10/25 11:10 07/10/25 11:25 07/10/25 12:30 Temperature 96.3 F L 96.9 F L Pulse Rate Pulse Rate [Pulse Oximeter] 60 64 Respiratory Rate 18 18 Blood Pressure Blood Pressure [Ri ght Arm] 148/68 H 149/71 H 140/51 H Pulse Oximetry 95 99 Oxygen Delivery Me thod Room Air Nasal Cannula Oxygen Flow Rate 2.5 07/10/25 13:15 07/10/25 13:30 07/10/25 15:40 Temperature 97.2 F L 97.2 F L 98.3 F Pulse Rate Pulse Rate [Pulse Oximeter] 69 67 87 Respiratory Rate 18 18 18 Blood Pressure Blood Pressure [Ri ght Arm] 93/53 L 140/62 H 147/69 H Pulse Oximetry 95 95 93 Oxygen Delivery Me thod Nasal Cannula Room Air Room Air Oxygen Flow Rate 0.5 07/10/25 16:40 07/10/25 18:16 07/10/25 19:32 Temperature 97.7 F 98.9 F Pulse Rate 78 Pulse Rate [Pulse Oximeter] 86 85 Respiratory Rate 18 18 Blood Pressure Blood Pressure [Ri ght Arm] 145/63 H 140/57 H Pulse Oximetry 90 90 Oxygen Delivery Me thod Nasal Cannula Nasal Cannula Oxygen Flow Rate 1 1 07/10/25 23:00 07/10/25 23:00 07/10/25 23:00 Temperature 97.5 F L Pulse Rate Pulse Rate [Pulse Oximeter] 79 Respiratory Rate 16 16 Blood Pressure Blood Pressure [Ri ght Arm] 138/64 Pulse Oximetry 91 91 Oxygen Delivery Me thod Nasal Cannula Nasal Cannula Oxygen Flow Rate 1 1 07/10/25 23:00 07/11/25 03:00 07/11/25 07:51 Temperature 97.6 F 97.8 F Pulse Rate 76 Pulse Rate [Pulse Oximeter] 74 80 Respiratory Rate 16 16 Blood Pressure Blood Pressure [Ri ght Arm] 140/56 H 126/58 L Pulse Oximetry 90 92 Oxygen Delivery Me thod Nasal Cannula Room Air Oxygen Flow Rate 1.5 1.5 DS: Data Data Completed and Pending Labs on day of discharge: Labs from last 24 hours 07/11/25 07/10/25 07/10/25 08:19 15:05 12:15 WBC 12.38 H RBC 3.69 L Hgb 11.8 L Hct 36.1 MCV 98 MCH 32 MCHC 33 RDW Coeff of Claudia 12.6 Plt Count 230 Neut % (Auto) 81.5 H Lymph % (Auto) 13.5 L [place] % (Auto) 4.5 Eos % (Auto) 0.2 Baso % (Auto) 0.1 Neut # (Auto) 10.10 H Lymph # (Auto) 1.70 [place] # (Auto) 0.60 Eos # (Auto) 0.00 Baso # (Auto) 0.00 Abs Immat Gran (auto) 0.00 Imm/Tot Granulo (auto) 0.2 D-Dimer Quant (PE/DVT) VBG pH VBG pCO2 VBG pO2 VBG HCO3 Sodium Pending Potassium Pending Chloride Pending Carbon Dioxide Pending Anion Gap Pending BUN Pending Creatinine Pending Estimated Creat Clear Estimated GFR Pending Glucose Pending Lactate Calcium Pending Magnesium Total Bilirubin Pending Direct Bilirubin Pending AST Pending ALT Pending Alkaline Phosphatase Pending Troponin I < 0.01 C-Reactive Protein NT-Pro-B Natriuret Pep Total Protein Pending Albumin Pending Lipase Pending Lab Acknowledgement Test Added 07/10/25 07/10/25 07/10/25 12:15 11:58 11:09 WBC 6.50 RBC 4.06 Hgb 13.0 Hct 39.2 MCV 97 MCH 32 MCHC 33 RDW Coeff of Claudia Plt Count 221 Neut % (Auto) Lymph % (Auto) [place] % (Auto) Eos % (Auto) Baso % (Auto) Neut # (Auto) Lymph # (Auto) [place] # (Auto) Eos # (Auto) Baso # (Auto) Abs Immat Gran (auto) Imm/Tot Granulo (auto) D-Dimer Quant (PE/DVT) 0.88 H VBG pH 7.406 VBG pCO2 47 VBG pO2 35.0 VBG HCO3 30 H Sodium 138 Potassium 3.5 L Chloride 100 Carbon Dioxide 29 Anion Gap 9 BUN 19 Creatinine 1.0 Estimated Creat Clear 39.20 Estimated GFR 56 Glucose 195 H Lactate 1.8 Calcium 9.6 Magnesium 1.3 L Total Bilirubin 2.5 H Direct Bilirubin 1.8 H AST 150 H ALT 126 H Alkaline Phosphatase 294 H Troponin I < 0.01 C-Reactive Protein 3.2 H NT-Pro-B Natriuret Pep 588 H Total Protein 7.1 Albumin 3.8 Lipase Lab Acknowledgement Test Added Test Added 07/10/25 05:46 WBC RBC Hgb Hct MCV MCH MCHC RDW Coeff of Claudia Plt Count Neut % (Auto) Lymph % (Auto) [place] % (Auto) Eos % (Auto) Baso % (Auto) Neut # (Auto) Lymph # (Auto) [place] # (Auto) Eos # (Auto) Baso # (Auto) Abs Immat Gran (auto) Imm/Tot Granulo (auto) D-Dimer Quant (PE/DVT) VBG pH VBG pCO2 VBG pO2 VBG HCO3 Sodium Potassium Chloride Carbon Dioxide Anion Gap BUN Creatinine Estimated Creat Clear Estimated GFR Glucose Lactate Calcium Magnesium Total Bilirubin Direct Bilirubin 1.4 H AST ALT Alkaline Phosphatase Troponin I C-Reactive Protein NT-Pro-B Natriuret Pep Total Protein Albumin Lipase Lab Acknowledgement Preliminary micro results at discharge 07/09/25 13:58 Blood Culture - Preliminary Blood NO GROWTH AFTER 24 HOURS 07/09/25 13:36 Blood Culture - Preliminary Blood NO GROWTH AFTER 24 HOURS Discharge Plan Discharge Disposition: [facility] Date of Admission: 07/09/25 17:30 Primary Care Provider: Beau Wayne Condition: Improved Discharge Orders: Transfer of Care to Other Hospital (ORDER); Ordered 07/11/25 Ordered By: Sandhya Vallejo Oxygen: Yes Oxygen Delivery Method: Nasal Cannula Urinary Catheter: Yes
[2025-07-11 08:45] LABS: Alanine Aminotransferase* 84 U/L (4-35); Alkaline Phosphatase* 209 U/L (40-150); Anion Gap 5 mEq/L (7-15); Aspartate Amino Transferase* 68 U/L (12-35); Bilirubin Direct* 0.8 mg/dL (0.0-0.5); Bilirubin Total* 1.9 mg/dL (0.1-1.5); Blood Urea Nitrogen* 18 mg/dL (7-30); Calcium* 9.3 mg/dL (8.4-10.6); Carbon Dioxide* 35 mmol/L (20-32); Creatinine* 1.0 mg/dL (0.5-1.5); Est. Creatinine Clearance* 39.20; Estimated Glomerular Filt Rate 56 ml/min; Glucose* 129 mg/dL (60-115); Total Protein* 6.5 g/dL (6.0-8.3)
[2025-07-11] MEDS: HYDROCODONE-ACETAMIN 5-325 MG 1 TAB PO (08:48)
[2025-07-11] MEDS: METOPROLOL SUCCINATE (XL) 100 MG TAB PO (08:48)
--- NOTE | 2025-07-11 10:41 | PC.NURSE ---
Transfer for ERCP: Patient pleasant and cooperative, alert and oriented. Patient vitally stable, posterior lungs with crackles, BS hypoactive, IV running LR at 75. Patient on 1 L of oxygen with sats in the low 90s. Patient has 3 abdominal lap sites, C/D/I. ELINOR drain dressing C/D/I, emptied 30ml before leaving to [facility] [place], matt intact and draining straw urine. Report given to Minerva at [facility] at [phone], and patient left by EMS for ERCP procedure to [facility] at 1039.
--- NOTE | 2025-07-11 14:53 | P.IMPN_ITS ---
Assessment and Plan Assessment and plan (1) S/P laparoscopic cholecystectomy: Problem comment: Uncomplicated cholecystectomy. Intraoperative cholangiogram unsuccessful. Concern for biliary obstruction. Discharge to [facility] for ERCP and anticipate return for ongoing postoperative care Status: Acute (2) Choledocholithiasis: Problem comment: Unable to perform intra operative cholangiogram. Concern for obstructing biliary stone. Discharge to [facility] for ERCP with likely return to [facility] Status: Acute (3) Acute dyspnea: Problem comment: - 07/10/2025: Sudden onset postop status post laparoscopic cholecystectomy. Differential diagnosis includes acute diastolic heart failure, volume overloaded state postop, acute myocardial infarction, COPD exacerbation, panic attack. I doubt direct complication of surgery she just had but still keep this in the differential. Does not appear to have pneumothorax, acute coronary syndrome, pulmonary embolism. - furosemide 40 mg IV x1 dose and monitor - Lawton catheter placed and monitor input and output - initiated discussion with family - will discuss with Dr. Abbott/surgeon numerical control machine tool operator 07/11/2025: Patient reports no dyspnea but is still requiring oxygen this morning to maintain O2 sats above 90%. Continue to monitor and evaluate after return from [facility] Status: Acute (4) Hypoxia: Problem comment: Hypoxia without dyspnea this morning. Was treated for volume overload yesterday. I suspect some sedation from pain medication and some undiagnosed sleep apnea contributing Status: Acute Plan Transfer to [facility] via ambulance with ongoing cardio respiratory monitoring and need for ERCP. Anticipate return to [facility] for ongoing postopera tive care and evaluation of dyspnea and hypoxia. Total Time Spent Total Time Spent: Total time spent today is 35 minutes in coordination of care and discussing with patient and and other providers ongoing management of cardio respiratory disease and biliary disease Subjective Date Seen: 07/11/25 Interval history: 84-year-old female seen in followup of hospital admission for acute cholecystitis now status post cholecystectomy. Intraoperatively they were unable to do a cholangiogram. There was concern for a biliary obstruction and plan is for her to be transfer to [facility] for ERCP today. Due to a shortage of hospital beds she will likely be transferred back to [facility] for postoperative care. Postoperatively patient also had acute dyspnea. She reports feeling fine this morning but she still requiring oxygen to maintain her O2 sats above 90%. Yesterday is concern of possible volume overload and she did receive some diuresis. Exam Narrative: Exam Narrative: She is alert and appears in no distress. She is hard of hearing. She understands and is able to verbalize her recent medical history and current plan of care. Respirations are unlabored and clear to auscultation. Cardiovascular: S1, S2, regular rate and rhythm. Abdomen, bowel sounds are diminished. Abdomen has tenderness consistent with her postoperative status. No peritonitis. Const: Vital Signs, click to edit/add: Vital Signs - 24 hr 07/10/25 15:40 07/10/25 16:40 07/10/25 18:16 Temperature 98.3 F 97.7 F Pulse Rate 78 Pulse Rate [Pulse Oximeter] 87 86 Respiratory Rate 18 18 Blood Pressure [Ri ght Arm] 147/69 H 145/63 H Pulse Oximetry 93 90 Oxygen Delivery Me thod Room Air Nasal Cannula Oxygen Flow Rate 1 07/10/25 19:32 07/10/25 23:00 07/10/25 23:00 Temperature 98.9 F 97.5 F L Pulse Rate Pulse Rate [Pulse Oximeter] 85 79 Respiratory Rate 18 16 16 Blood Pressure [Ri ght Arm] 140/57 H 138/64 Pulse Oximetry 90 91 Oxygen Delivery Me thod Nasal Cannula Nasal Cannula Oxygen Flow Rate 1 1 07/10/25 23:00 07/10/25 23:00 07/11/25 03:00 Temperature 97.6 F Pulse Rate 76 Pulse Rate [Pulse Oximeter] 74 Respiratory Rate 16 Blood Pressure [Ri ght Arm] 140/56 H Pulse Oximetry 91 90 Oxygen Delivery Me thod Nasal Cannula Nasal Cannula Oxygen Flow Rate 1 1.5 07/11/25 07:51 07/11/25 07:51 07/11/25 07:51 Temperature 97.8 F Pulse Rate Pulse Rate [Pulse Oximeter] 80 80 Respiratory Rate 16 16 16 Blood Pressure [Ri ght Arm] 126/58 L Pulse Oximetry 92 92 Oxygen Delivery Me thod Room Air Room Air Oxygen Flow Rate 1.5 1.5 Documenting provider has reviewed patient's vital signs: yes Labs Labs: Laboratory Results - last 24 hr 07/10/25 07/11/25 15:05 08:19 WBC 12.38 H RBC 3.69 L Hgb 11.8 L Hct 36.1 MCV 98 MCH 32 MCHC 33 RDW Coeff of Claudia 12.6 Plt Count 230 Neut % (Auto) 81.5 H Lymph % (Auto) 13.5 L [place] % (Auto) 4.5 Eos % (Auto) 0.2 Baso % (Auto) 0.1 Neut # (Auto) 10.10 H Lymph # (Auto) 1.70 [place] # (Auto) 0.60 Eos # (Auto) 0.00 Baso # (Auto) 0.00 Abs Immat Gran (auto) 0.00 Imm/Tot Granulo (auto) 0.2 Sodium 134 L Potassium 3.9 Chloride 94 L Carbon Dioxide 35 H Anion Gap 5 L BUN 18 Creatinine 1.0 Estimated Creat Clear 39.20 Estimated GFR 56 Glucose 129 H Calcium 9.3 Total Bilirubin 1.9 H Direct Bilirubin 0.8 H AST 68 H ALT 84 H Alkaline Phosphatase 209 H Troponin I < 0.01 Total Protein 6.5 Albumin 3.5 Lipase 15 L
== END 2025-07-11 10:39 | disposition short-term general hospital (02) | DRG 418 ==
LOC: ED 15:49 → OR 17:26 → MEDSURG 17:27 → OR 20:12 → MEDSURG 20:12
PROVIDERS: Family Medicine; Internal Medicine; Student in an Organized Health Care Education/Training Program; Admitting Provider Surgery; Emergency Provider Family Medicine; PCP Family Medicine; Visit Provider Surgery
PROC: 0FT44ZZ Resection of Gallbladder, Percutaneous Endoscopic Approach (ICD-10-PCS; CPT 47563; principal; 2025-07-10 07:15)
DX: K80.63 Calculus of gallbladder and bile duct with acute cholecystitis with obstruction (principal); K55.1 Chronic vascular disorders of intestine; R09.02 Hypoxemia; E87.70 Fluid overload, unspecified; E87.6 Hypokalemia; R06.00 Dyspnea, unspecified; K21.9 Gastro-esophageal reflux disease without esophagitis; F41.9 Anxiety disorder, unspecified; I10 Essential (primary) hypertension; Z79.82 Long term (current) use of aspirin; I25.10 Atherosclerotic heart disease of native coronary artery without angina pectoris; Z95.5 Presence of coronary angioplasty implant and graft; E03.9 Hypothyroidism, unspecified; E05.90 Thyrotoxicosis, unspecified without thyrotoxic crisis or storm; H91.8X9 Other specified hearing loss, unspecified ear; H35.30 Unspecified macular degeneration; E78.5 Hyperlipidemia, unspecified; Z85.038 Personal history of other malignant neoplasm of large intestine
CPT/HCPCS: 00790; 36415; 51701; 71045; 71260; 74177; 74181; 74300; 76000; 76705; 80048; 80053; 80076; 81001; 82150; 82248; 82803; 83605; 83690; 83735; 83880; 84443; 84484; 85025; 85027; 85379; 86140; 87040; 87086; 87631; 88304; 93005; 94761; 97116; 97162; 97165; 97530; 97535; 99100; 99285; A9270; J0330; J0665; J1171; J1650; J1938; J2371; J2543; J2704; J3010; J3475; J3490; J7030; J7050; J7120; Q9967

== ENCOUNTER 2025-07-11 10:35 | Outpatient (CLI) | payer MEDICARE, OTHER, SELFPAY | END 2025-07-11 10:36 | disposition home or self-care (01) | LOC: AMB 07-14 15:51 | PROVIDERS: PCP Family Medicine; Visit Provider Family Medicine | DX: K80.50 Calculus of bile duct without cholangitis or cholecystitis without obstruction (principal); Z90.49 Acquired absence of other specified parts of digestive tract | CPT/HCPCS: A0425; A0428 ==

== ENCOUNTER 2025-07-11 18:37 | Inpatient (IN) | payer MEDICARE, OTHER, SELFPAY ==
[2025-07-11 18:47] VITALS: BMI 25.7; BMI 25.8
[2025-07-11 18:48] VITALS: BP 140/64; PULSE 72; RESP 16; TEMP 37.3
--- NOTE | 2025-07-11 19:23 | PC.NURSE ---
End of Shift: Patient pleasant and cooperative. Arrived from the [facility] at about 1830. This telegraphic typewriter operator chief completed admission then handed off. Patient vitally stable, lungs clear, BS WNL, IV SL and intact. Abdominal lap sites x3 C/D/I. Right ELINOR drain C/D/I, emptied 60ml during admission. Patient rates back pain 8/10.
[2025-07-11 19:31] VITALS: RESP 16; O2SAT 92
--- NOTE | 2025-07-11 20:02 | PM.IMHP1 ---
Assessment and Plan Assessment and plan (1) S/P laparoscopic cholecystectomy: Problem comment: - CT abdomen and pelvis showed borderline dilatation of the gallbladder with diffuse wall heterogeneity and cholelithiasis. Findings may represent chronic or possible early acute cholecystitis. - right upper quadrant ultrasound showed multi cystic focus at the gallbladder fundus that may represent developmental variation or sequela of prior /chronic cholecystitis. - S/P Zosyn - S/P cholecystectomy without complications but an intraoperative cholangiogram was unsuccessful concerning for biliary obstruction. Thus patient was discharged to [facility] for ERCP and and now patient is back for ongoing postoperative care. - 07/11: An upper EUS was performed at [facility] and it showed the following: No choledocholithiasis or biliary obstruction identified. Normal caliber bile duct with a maximum diameter of 6.8 mm. Report attached to this note. Status: Acute (2) Acute hypoxic respiratory failure: Problem comment: - Improving, currently patient is only on 1 liter/minute oxygen nasal cannula and satting 92-95%. - 07/10/2025: Sudden onset postop status post laparoscopic cholecystectomy. Differential diagnosis includes acute diastolic heart failure, volume overloaded state postop, acute myocardial infarction, COPD exacerbation, panic attack. I doubt direct complication of surgery she just had but still keep this in the differential. Does not appear to have pneumothorax, acute coronary syndrome, pulmonary embolism. - furosemide 40 mg IV x1 dose and monitor - Lawton catheter placed and monitor input and output - initiated discussion with family - will discuss with Dr. Abbott/surgeon electronic device monitor 07/11/2025: Patient reports no dyspnea but is still requiring 1 L/min oxygen to maintain O2 sats above 90%. Status: Acute (3) Cholelithiasis: Problem comment: As above Status: Acute (4) Coronary artery disease status post coronary stent insertion: Problem comment: - coronary artery disease status post stenting in 1999 - currently patient is asymptomatic, no chest discomfort or dyspnea on exertion. Patient is able to walk without any cardiac symptoms. - patient is on aspirin 325 mg daily she took her dose on the day of admission 07/09, she will need to take her aspirin dose as patient has a stent. Status: Acute (5) Superior mesenteric artery stenosis: Problem comment: - CT scan showed High-grade stenosis of the superior mesenteric artery origin. No findings to suggest evolving acute mesenteric ischemia. - lactate within normal limits - Patient denies bowel movement changes or blood in the stool. She does not have any abdominal symptoms after eating. - patient will need follow-up as an outpatient with PCP. - will try to keep adequately hydrated Status: Acute (6) Hypertension: Problem comment: Continue metoprolol but hold hydrochlorothiazide before surgery Status: Acute (7) Hyperlipidemia: Problem comment: Continue statin Status: Acute (8) Hypothyroidism: Problem comment: Continue levothyroxine Status: Acute (9) Gastroesophageal reflux disease: Problem comment: Continue PPI Status: Acute (10) Hearing loss: Problem comment: Has hearing aids Status: Acute (11) Macular degeneration: Problem comment: With significant vision loss Status: Acute (12) Malignant neoplasm of colon: Status: Acute Plan Time spent: Today I spent 55 minutes seeing the patient, discussing the patient with ER staff, reviewing Expanse and EPIC notes/diagnostics, discussing the care plan with our care time that includes social work, PT/OT, pharmacy, RT, half-way and documenting my impressions and plan in the medical record. Total Time Spent Total Time Spent: Time spent: Today I spent 75 minutes seeing the patient, discussing the patient with ER staff, reviewing Expanse and EPIC notes/diagnostics, discussing the care plan with our care time that includes social work, PT/OT, pharmacy, RT, half-way and documenting my impressions and plan in the medical record. Hospitalist- H&P: [facility] History of Present Illness Date Seen: 07/11/25 Chief complaint: post surgery Narrative: Nalini Stark is a 84 year old female Nalini Stark is a 84 year old female with past medical history of hypertension, hyperlipidemia, coronary artery disease status post stenting in 1999, hypothyroidism and GERD who presents to the ED on 07/09 complaining of feeling unwell for the past week, in addition to having back pain. Patient was found to have cholecystitis and cholelithiasis and thus our general surgeon recommended starting Zosyn and she performed cholecystectomy without complications but an intraoperative cholangiogram was unsuccessful concerning for biliary obstruction. Thus patient was discharged to [facility] for ERCP and and now patient is back for ongoing postoperative care. An upper EUS was performed at [facility] and it showed the following: No choledocholithiasis or biliary obstruction identified. Normal caliber bile duct with a maximum diameter of 6.8 mm. Report attached to this note. 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 (ICD-10) Health care directive on file ?Z78.9 - Other specified health status (ICD-10) Surgical History (Updated 07/11/25 @ 20:43 by Vanessa Strong MD) Coronary artery disease status post coronary stent insertion ?I25.10 - Atherosclerotic heart disease of [place] coronary artery without angina pectoris (ICD-10) ?Z95.5 - Presence of coronary angioplasty implant and graft (ICD-10) History of hand surgery ?Z98.890 - Other specified postprocedural states (ICD-10) Status post coronary artery stent placement (1999) ?Z95.5 - Presence of coronary angioplasty implant and graft (ICD-10) History of surgery on right wrist ?Z98.890 - Other specified postprocedural states (ICD-10) History of shoulder surgery ?Z98.890 - Other specified postprocedural states (ICD-10) History of partial surgical removal of colon (1992) ?Z90.49 - Acquired absence of other specified parts of digestive tract (ICD-10) History of cataract extraction ?Z98.49 - Cataract extraction status, unspecified eye (ICD-10) Family History Other Diabetes Social History What is your current living situation?: I presently have a place to live Problems where you live: no known problems Problems where you live details: N/A In the past 12 months, utilities in danger of being shut off: no In past 12 months, lack of transportation kept you from medical appts, meetings, work, or getting things needed for daily living: no In the past 12 mos, have been you worried that your food would run out before you had money to buy more?: never true In the past 12 mos, the food you bought just didn't last and you didn't have money to buy more?: never true Highest level of school completed/degree received: Associate degree: occupational, technical, vocational program Smoking Status: Former smoker Second hand tobacco smoke exposure: No How often do you have a drink containing alcohol: never AUDIT-C Alcohol total score: 0 Non-prescribed substance use: denies use Caffeine: Yes How often does anyone, including family, friends and others, physically hurt you: never How often does anyone, including family, friends and others, insult or talk down to you: never How often does anyone, including family, friends and others, threaten you with harm: never How often does anyone, including family, friends and others, scream or curse at you: never service: No Meds Home Medications and Allergies Home Medications ?Medication ?Instructions ?Recorded ?Confirmed ?Type aspirin 325 mg tablet 325 mg PO DAILY 04/14/23 07/10/25 History hydrochlorothiazide 25 mg tablet 25 mg PO QAM #90 tabs 03/17/25 07/09/25 Rx levothyroxine 75 mcg tablet 75 mcg PO DAILY 07/10/25 07/10/25 History metoprolol succinate 100 mg 100 mg PO DAILY 07/10/25 07/10/25 History tablet,extended release 24 hr omeprazole 20 mg capsule,delayed 20 mg PO DAILY 07/10/25 07/10/25 History release simvastatin 40 mg tablet 40 mg PO HS 07/10/25 07/10/25 History Allergies Allergy/AdvReac Type Severity Reaction Status Date / Time tetanus toxoid, adsorbed Allergy Unknown Unknown Verified 07/04/25 11:10 Exam Narrative: Exam Narrative: Physical exam GENERAL: Comfortable, no acute distress. on 1 L/min O2. HEAD AND NECK: Patient is blind and wearing hearing aids. CARDIOVASCULAR: RRR. Normal S1, S2. No murmurs. RESPIRATORY: Clear to auscultation B/L. Good air entry B/L. No wheezes or rhonchi. on 1 L/min O2. GASTROINTESTINAL: Soft, Not distended, not tender to palpation. No guarding or rigidity. NEUROLOGY: Alert, awake, oriented X 3. Normal speech. PSYCH: Normal mood, normal affect. Const: Vital Signs, click to edit/add: Vital Signs - 24 hr 07/11/25 18:48 07/11/25 19:31 Temperature 99.1 F Pulse Rate [Pulse Oximeter] 72 Respiratory Rate 16 16 Blood Pressure [Ri ght Arm] 140/64 H Pulse Oximetry 92 Oxygen Delivery Me thod Nasal Cannula Nasal Cannula Oxygen Flow Rate 1 1 Hospitalist - H&P: Result Labs Labs: Short CBC 07/09/25 Range/Units 13:36 WBC 8.04 (4.50-11.00) K/uL Hgb 13.4 (12.0-16.0) gm/dL Hct 39.7 (33.0-51.0) % Plt Count 290 (140-440) K/uL BMP 07/09/25 13:36 Sodium 138 Potassium 3.3 L Chloride 96 Carbon Dioxide 33 H BUN 27 Creatinine 1.1 Glucose 151 H Calcium 10.4 Cardiac Enzymes 07/09/25 Range/Units 13:36 Troponin I < 0.01 (0.01-0.04) ng/mL Liver Function 07/09/25 Range/Units 13:36 Total Bilirubin 2.8 H (0.1-1.5) mg/dL Direct Bilirubin 2.1 H (0.0-0.5) mg/dL AST 134 H (12-35) U/L ALT 107 H (4-35) U/L Alkaline Phosphatase 322 H (40-150) U/L Albumin 4.1 (3.3-5.0) g/dL ECG Attestation: I personally reviewed and interpreted this ECG as follows: ECG interpretation date: 07/11/25 Interpretation: Sinus bradycardia. T-wave inversion in both chest and limb leads. No ST elevation or depression. Imaging Upper EUS (from [place]): Radiologist's impression: Procedure: Upper EUS Proceduralist: Josey Norman MD Indications/Pre-Op Diagnosis: Elevated liver enzymes; 84F who presented to [facility] with weakness found to have acute cholecystitis status post laparoscopic cholecystectomy with uptrending transaminases. Total bilirubin downtrending but still elevated. For EUS for further evaluation and ERCP if indicated. Medications: Monitored Anesthesia Care Procedure Description: Risk of bleeding, infection, perforation, pancreatitis, need for surgery, remote chance of and alternatives were discussed, and the patient gave informed consent. The endoscope [id number] was introduced through the mouth, and advanced to the second part of duodenum. Complications: No immediate complications. Estimated Blood Loss & Specimen: Estimated blood loss: none. Specimen collected: None Findings: The pylorus was patent however there was a thick muscular ring preventing passage of the echoendoscope. A TTS dilator was passed through the scope. Dilation with a 12-13.5-15 mm balloon dilator was performed to 15 mm. ENDOSONOGRAPHIC FINDING: : There was no sign of significant endosonographic abnormality in the common bile duct. The maximum diameter of the duct was 7 mm. No stones and ducts of normal caliber were identified. Evidence of a previous cholecystectomy was identified endosonographically. ENDOSCOPIC FINDING: : The major papilla was normal. Impressions/Post-Op Diagnosis: - No choledocholithiasis or biliary obstruction identified. - Normal caliber bile duct with a maximum diameter of 6.8 mm. Recommendation: - Return patient to [facility] for ongoing care. - Resume previous diet. - Would continue to trend LFTs while inpatient. - Appreciate primary team care, inpatient GI team to sign off now. ? ? Josey Norman MD 07/11/2025 3:51:16 PM
[2025-07-11 20:15] VITALS: BP 153/55; PULSE 72; RESP 18; TEMP 37.1; O2SAT 93
[2025-07-11] MEDS: SIMVASTATIN 40 MG TABLET PO (20:37)
[2025-07-11] MEDS: ENOXAPARIN 40 MG/0.4 ML INJ SUBCUT (20:38)
[2025-07-11] MEDS: SODIUM CHLORIDE 0.9 % (FLUSH) 10 ML SYRINGE 5 ML IVF (20:38)
[2025-07-11 22:05] VITALS: PULSE 77
[2025-07-11 23:00] VITALS: BP 144/59; PULSE 79; RESP 18; TEMP 37.1; O2SAT 90
[2025-07-12] VITALS (11 sets, daily range): BP systolic 127–153; BP diastolic 52–65; PULSE 58–78; RESP 14–20; TEMP 36.3–37.4; O2SAT 84–95
[2025-07-12 06:26] LABS: Hematocrit 34.1 % (33.0-51.0); Hemoglobin* 11.0 gm/dL (12.0-16.0); Mean Corpuscular HGB Conc 32 gm/dL (32-36); Mean Corpuscular Hemoglobin 32 pg (26-34); Mean Corpuscular Volume 98 fL (80-100); Red Blood Count 3.49 m/uL (4.00-5.20); White Blood Count* 12.35 K/uL (4.50-11.00)
[2025-07-12] MEDS: LEVOTHYROXINE 75 MCG TABLET PO (06:29)
[2025-07-12 06:32] LABS: Slide Review Reflex No
--- NOTE | 2025-07-12 06:36 | PC.NURSE ---
End of shift [id number]: Pt AxOx3, pleasant, and cooperative with cares. Lap sites remain CDI. ELINOR patent and draining. Lawton remaining patent and draining. Hematuria noted and reported to MD Strong. Strict Is and Os. Active ice to the abdomen. SCDs in place. Pt denies pain/CP/SOB/headache during shift. Pt requiring 1L NC during sleeping periods to maintain sats>90%. SBA when grabbing a daily weight. Call light within reach.?
[2025-07-12 06:42] LABS: Chloride* 95 mmol/L (96-114)
[2025-07-12 06:43] LABS: Albumin* 3.1 g/dL (3.3-5.0); Potassium* 3.9 mmol/L (3.6-5.1); Sodium* 132 mmol/L (135-149)
[2025-07-12 06:45] LABS: Blood Urea Nitrogen* 16 mg/dL (7-30); Creatinine* 0.9 mg/dL (0.5-1.5); Est. Creatinine Clearance* 39.20; Estimated Glomerular Filt Rate 63 ml/min
[2025-07-12 06:46] LABS: Alanine Aminotransferase* 55 U/L (4-35); Alkaline Phosphatase* 184 U/L (40-150); Anion Gap 5 mEq/L (7-15); Aspartate Amino Transferase* 36 U/L (12-35); Bilirubin Total* 1.4 mg/dL (0.1-1.5); Calcium* 9.0 mg/dL (8.4-10.6); Carbon Dioxide* 32 mmol/L (20-32); Glucose* 106 mg/dL (60-115); Total Protein* 6.1 g/dL (6.0-8.3)
[2025-07-12] MEDS: ASPIRIN EC 325 MG TABLET PO (09:22)
[2025-07-12] MEDS: METOPROLOL SUCCINATE (XL) 100 MG TAB PO (09:22)
[2025-07-12] MEDS: POTASSIUM BICARB 25 MEQ EFFERVESCENT TAB PO (09:22)
[2025-07-12] MEDS: MAGNESIUM OXIDE 400 MG TABLET PO ×2 (09:22→21:10)
[2025-07-12] MEDS: FUROSEMIDE 10 MG/ML inj 20 MG IVP (09:22)
[2025-07-12] MEDS: OMEPRAZOLE 20 MG CAPSULE DR PO (09:22)
[2025-07-12] MEDS: MAGNESIUM IV 2 GM/50 ML PIGGYBACK IVPB (09:23)
[2025-07-12] MEDS: SODIUM CHLORIDE 0.9 % (FLUSH) 10 ML SYRINGE 5 ML IVF ×2 (09:24→21:10)
--- NOTE | 2025-07-12 10:02 | PM.GSPN ---
Subjective Subjective Date Seen: 07/12/25 Interval history: Patient went to [place] yesterday for EUS and ERCP. EUS showed no choledocholithiasis. Patient returned to [facility] for further cares. Patient had no vomiting. She denies abdominal pain. She had a bowel movement in the morning. Her Lawton catheter is in place for managing I&Os. She tolerated a donut in the morning. Exam Narrative: Exam Narrative: Abdomen is soft, nondistended, not tender to palpation, right upper quadrant drain is with bloody serosanguineous fluid in the bulb. The drain was removed today. Laparoscopic incisions are covered with clean steries. Const: Vital Signs, click to edit/add: Vital Signs - 24 hr 07/11/25 18:48 07/11/25 19:31 07/11/25 20:15 Temperature 99.1 F Pulse Rate Pulse Rate [Pulse Oximeter] 72 Respiratory Rate 16 16 Blood Pressure [Ri ght Arm] 140/64 H Pulse Oximetry 92 93 Oxygen Delivery Me thod Nasal Cannula Nasal Cannula Oxygen Flow Rate 1 1 07/11/25 20:15 07/11/25 22:05 07/11/25 23:00 Temperature 98.8 F Pulse Rate 77 Pulse Rate [Pulse Oximeter] 72 Respiratory Rate 18 18 Blood Pressure [Ri ght Arm] 153/55 H Pulse Oximetry 93 90 Oxygen Delivery Me thod Room Air Nasal Cannula Oxygen Flow Rate 1 07/11/25 23:00 07/12/25 03:53 07/12/25 07:00 Temperature 98.8 F 99.4 F Pulse Rate Pulse Rate [Pulse Oximeter] 79 78 78 Respiratory Rate 18 18 18 Blood Pressure [Ri ght Arm] 144/59 H 153/55 H Pulse Oximetry 90 90 Oxygen Delivery Me thod Nasal Cannula Nasal Cannula Oxygen Flow Rate 1 1 07/12/25 07:00 07/12/25 07:00 Temperature 98 F Pulse Rate Pulse Rate [Pulse Oximeter] 73 Respiratory Rate 18 18 Blood Pressure [Ri ght Arm] 134/65 Pulse Oximetry 89 89 Oxygen Delivery Me thod Room Air Room Air Oxygen Flow Rate Progress Note:A&P Assessment and plan (1) S/P laparoscopic cholecystectomy: Status: Acute Plan 84-year-old female s/p laparoscopic cholecystectomy POD 2 and s/p EUS POD 1 with no evidence of choledocholithiasis. Patient's liver function tests are improving. She has no abdominal pain. We advanced her diet to regular. Patient will be receiving Lasix for volume overload today. Lawton catheter will come out today. Her drain is out. I discussed with the patient that she needs to ambulate on the floor. I also recommended drinking Ensures. Possible discharge home tomorrow.
[2025-07-12] MEDS: BACITRACIN OINTMENT BULK TUBE 1 APPLIC TOPICAL (10:52)
[2025-07-12] MEDS: PIPERACILLIN/TAZOBACTAM 3.375 GM in 0.9 % SODIUM CHLORIDE Mini-bag 100 ML IVPB ×3 (10:52→22:38)
--- NOTE | 2025-07-12 11:08 | P.IMPN_ITS ---
Assessment and Plan Assessment and plan (1) S/P laparoscopic cholecystectomy: Problem comment: - CT abdomen and pelvis showed borderline dilatation of the gallbladder with diffuse wall heterogeneity and cholelithiasis. Findings may represent chronic or possible early acute cholecystitis. - right upper quadrant ultrasound showed multi cystic focus at the gallbladder fundus that may represent developmental variation or sequela of prior /chronic cholecystitis. - S/P Zosyn - S/P cholecystectomy without complications but an intraoperative cholangiogram was unsuccessful concerning for biliary obstruction. Thus patient was discharged to [place] for ERCP and and now patient is back for ongoing postoperative care. - 07/11: An upper EUS was performed at [place] and it showed the following: No choledocholithiasis or biliary obstruction identified. Normal caliber bile duct with a maximum diameter of 6.8 mm. Status: Acute (2) Acute hypoxic respiratory failure: Problem comment: Resolved. Postop hypoxia suspected to be a combination of some volume overload, sedation from anesthesia and pain medication and possible underlying sleep apnea Status: Acute (3) Hypoxia: Problem comment: Hypoxia without dyspnea resolved today. Was treated for volume overload yesterday. I suspect some sedation from pain medication and some undiagnosed sleep apnea contributing Status: Acute (4) Coronary artery disease status post coronary stent insertion: Problem comment: Currently asymptomatic - coronary artery disease status post stenting in 1999 - currently patient is asymptomatic, no chest discomfort or dyspnea on exertion. Patient is able to walk without any cardiac symptoms. - patient is on aspirin 325 mg daily she took her dose on the day of admission 07/09, she will need to take her aspirin dose as patient has a stent. Status: Acute Plan Continue in hospital for 1 more day of evaluation monitoring postop cholec ystectomy. Possible discharge to home with tomorrow if continued to do well. Total Time Spent Total Time Spent: Total time spent today is 35 minutes in coordination of care and discussing with patient and other providers ongoing management of cholecystectomy, disability, hypoxia. Subjective Date Seen: 07/12/25 Interval history: 84-year-old female seen in followup of hospital admission for acute cholecystitis now status post cholecystectomy. Intraoperatively they were unable to do a cholangiogram. There was concern for a biliary obstruction and plan is for her to be transfer to [place] for ERCP today. Due to a shortage of hospital beds she will likely be transferred back to [facility] for postoperative care. Postoperatively patient also had acute dyspnea. Evaluation at that time suggested volume overload and she receive some diuresis which improved but did not resolve her hypoxia. On July 11 she went to [facility] for evaluation of suspected biliary stone. EUS showed no obstruction and she was transferred back to [facility]. She reports generally feeling better today. Not having significant pain. No fever. No dyspnea. Overnight she was still mildly hypoxic requiring 1 L of oxygen per nasal cannula. She is tolerating p.o. food and fluid well. Starting to move better with therapy. Exam Narrative: Exam Narrative: She is alert and appears in no distress. Now breathing room air with an O2 sat of 90%. Respirations are clear to auscultation without wheezing rales or rhonchi. Cardiovascular: S1, S2, regular rate and rhythm. Abdomen is soft with mild postoperative tenderness. Extremities without significant edema. Const: Vital Signs, click to edit/add: Vital Signs - 24 hr 07/11/25 18:48 07/11/25 19:31 07/11/25 20:15 Temperature 99.1 F Pulse Rate Pulse Rate [Pulse Oximeter] 72 Respiratory Rate 16 16 Blood Pressure [Ri ght Arm] 140/64 H Pulse Oximetry 92 93 Oxygen Delivery Me thod Nasal Cannula Nasal Cannula Oxygen Flow Rate 1 1 07/11/25 20:15 07/11/25 22:05 07/11/25 23:00 Temperature 98.8 F Pulse Rate 77 Pulse Rate [Pulse Oximeter] 72 Respiratory Rate 18 18 Blood Pressure [Ri ght Arm] 153/55 H Pulse Oximetry 93 90 Oxygen Delivery Me thod Room Air Nasal Cannula Oxygen Flow Rate 1 07/11/25 23:00 07/12/25 03:53 07/12/25 07:00 Temperature 98.8 F 99.4 F Pulse Rate Pulse Rate [Pulse Oximeter] 79 78 78 Respiratory Rate 18 18 18 Blood Pressure [Ri ght Arm] 144/59 H 153/55 H Pulse Oximetry 90 90 Oxygen Delivery Me thod Nasal Cannula Nasal Cannula Oxygen Flow Rate 1 1 07/12/25 07:00 07/12/25 07:00 Temperature 98 F Pulse Rate Pulse Rate [Pulse Oximeter] 73 Respiratory Rate 18 18 Blood Pressure [Ri ght Arm] 134/65 Pulse Oximetry 89 89 Oxygen Delivery Me thod Room Air Room Air Oxygen Flow Rate Documenting provider has reviewed patient's vital signs: yes Labs Labs: Laboratory Results - last 24 hr 07/12/25 05:40 WBC 12.35 H RBC 3.49 L Hgb 11.0 L Hct 34.1 MCV 98 MCH 32 MCHC 32 Plt Count 181 Sodium 132 L Potassium 3.9 Chloride 95 L Carbon Dioxide 32 Anion Gap 5 L BUN 16 Creatinine 0.9 Estimated Creat Clear 39.20 Estimated GFR 63 Glucose 106 Calcium 9.0 Magnesium 1.2 L Total Bilirubin 1.4 AST 36 H ALT 55 H Alkaline Phosphatase 184 H Total Protein 6.1 Albumin 3.1 L
--- NOTE | 2025-07-12 12:41 | PC.NURSE ---
Nursing Care Hours: [id number] Pt this shift woke up irritable, c/o having to wait this morning for breakfast at 0800. Pt had called to bring in breakfast. Pt denies pain or nausea. VSS. BS active x4. Pt denies passing gas. ELINOR removed by surgeon. Encouraged to ambulate. Aid walked with pt in room and reported pt swaying and felt dizzy when she got to the door. Pt sat with aid before ambulating back to bed. BP was not taken at that time. Reported to oncoming nurse.
--- NOTE | 2025-07-12 18:01 | PC.NURSE ---
End of Shift: Patient pleasant and cooperative. Patient vitally stable, lungs clear, BS WNL, IV SL and intact. Patient denies pain, but had pain in left side of abdomen with palpation. Patient has voided since matt was removed. Patient up to chair for meals, she ate 25% of lunch and dinner. Dinner consisted of turkey, mashed potatoes, and gravy. Patient has walked the halls x2. Abdominal lap sites x3 and Mepilex from removed ELINOR drain are C/D/I. Tele=NSR
[2025-07-12] MEDS: ENOXAPARIN 40 MG/0.4 ML INJ SUBCUT (21:10)
[2025-07-12] MEDS: SIMVASTATIN 40 MG TABLET PO (21:10)
[2025-07-13 02:50] VITALS: BP 135/59; PULSE 57; RESP 16; TEMP 36.5; O2SAT 97
[2025-07-13] MEDS: PIPERACILLIN/TAZOBACTAM 3.375 GM in 0.9 % SODIUM CHLORIDE Mini-bag 100 ML IVPB ×2 (04:03→10:10)
[2025-07-13] MEDS: LEVOTHYROXINE 75 MCG TABLET PO (06:41)
--- NOTE | 2025-07-13 07:16 | PC.NURSE ---
I arrived at 1950 to find the patient resting in bed, alert and oriented and vitally stable. I put them on1L via NC to keep saturations above 90. They were very much deeply asleep at this time but awoke without problem. Last night I had found the patient in a deep delirium but tonight I have seen no sign of memory impairment or confusion. Their two front lap sites appear normal. Their third incision site on the right rib is covered with a foam dressing. No drainage from this area. No pain or nausea noted overnight. They?ve been up frequently to urinate. Tele shows a normal sinus rhythm. No other major developments overnight.??
[2025-07-13 07:42] LABS: HCO3 VBG 36 mmol/L (21-28); PCO2 VBG 53 mmHG (40-50); PO2 VBG 44.8 mmHG (25-47); pH VBG 7.437 (7.32-7.43)
[2025-07-13 08:06] LABS: Albumin* 3.2 g/dL (3.3-5.0); Chloride* 94 mmol/L (96-114)
[2025-07-13 08:07] LABS: Potassium* 3.8 mmol/L (3.6-5.1); Sodium* 133 mmol/L (135-149)
[2025-07-13 08:09] LABS: Alanine Aminotransferase* 59 U/L (4-35); Alkaline Phosphatase* 301 U/L (40-150); Anion Gap 3 mEq/L (7-15); Aspartate Amino Transferase* 63 U/L (12-35); Bilirubin Direct* 0.9 mg/dL (0.0-0.5); Bilirubin Total* 1.4 mg/dL (0.1-1.5); Blood Urea Nitrogen* 19 mg/dL (7-30); Calcium* 9.0 mg/dL (8.4-10.6); Carbon Dioxide* 36 mmol/L (20-32); Creatinine* 0.9 mg/dL (0.5-1.5); Est. Creatinine Clearance* 39.20; Estimated Glomerular Filt Rate 63 ml/min; Glucose* 107 mg/dL (60-115); Total Protein* 6.4 g/dL (6.0-8.3)
[2025-07-13 08:55] VITALS: BP 140/48; PULSE 62; RESP 20; TEMP 36.4; O2SAT 92
[2025-07-13] MEDS: OMEPRAZOLE 20 MG CAPSULE DR PO (09:01)
[2025-07-13] MEDS: ASPIRIN EC 325 MG TABLET PO (09:01)
[2025-07-13] MEDS: MAGNESIUM OXIDE 400 MG TABLET PO (09:01)
[2025-07-13] MEDS: METOPROLOL SUCCINATE (XL) 100 MG TAB PO (09:01)
[2025-07-13] MEDS: SODIUM CHLORIDE 0.9 % (FLUSH) 10 ML SYRINGE 5 ML IVF (09:01)
--- NOTE | 2025-07-13 09:40 | P.GSPN_ITS ---
Subjective Subjective Date Seen: 07/13/25 Interval history: Patient is doing well. No vomiting. tolerated diet. Exam Narrative: Exam Narrative: Abdomen is soft, not distended, not tender to palpation. Laparoscopic incisions are covered with dry steries Const: Vital Signs, click to edit/add: Vital Signs - 24 hr 07/12/25 12:19 07/12/25 15:12 07/12/25 15:51 Temperature 98.9 F 98.3 F Pulse Rate 64 Pulse Rate [Pulse Oximeter] 65 63 Respiratory Rate 20 18 Blood Pressure [Le ft Arm] 127/52 L Blood Pressure [Ri ght Arm] 133/65 Pulse Oximetry 90 94 Oxygen Delivery Me thod Room Air Room Air Oxygen Flow Rate 07/12/25 15:51 07/12/25 15:51 07/12/25 19:50 Temperature 97.6 F Pulse Rate Pulse Rate [Pulse Oximeter] 63 65 Respiratory Rate 18 18 18 Blood Pressure [Le ft Arm] Blood Pressure [Ri ght Arm] 147/65 H Pulse Oximetry 94 84 L Oxygen Delivery Me thod Room Air Room Air Oxygen Flow Rate 07/12/25 19:55 07/12/25 20:00 07/12/25 21:39 Temperature Pulse Rate 58 L Pulse Rate [Pulse Oximeter] Respiratory Rate Blood Pressure [Le ft Arm] Blood Pressure [Ri ght Arm] Pulse Oximetry 94 94 Oxygen Delivery Me thod Nasal Cannula Oxygen Flow Rate 1 07/12/25 22:28 07/12/25 23:00 07/13/25 02:50 Temperature 97.3 F L 97.7 F Pulse Rate Pulse Rate [Pulse Oximeter] 59 L 57 L Respiratory Rate 18 14 16 Blood Pressure [Le ft Arm] Blood Pressure [Ri ght Arm] 153/61 H 135/59 L Pulse Oximetry 93 95 97 Oxygen Delivery Me thod Nasal Cannula Room Air Room Air Oxygen Flow Rate 1 1 Progress Note:A&P Assessment and plan (1) S/P laparoscopic cholecystectomy: Status: Acute Plan 84-year-old female s/p laparoscopic cholecystectomy and subsequent ERCP at the outside hospital with no evidence of choledocholithiasis. Patient is doing well. Her liver function tests continued to be slightly e levated. Patient has no abdominal pain and is tolerating diet. Okay to discharge home with follow-up in surgery Clinic in 2 weeks. We will obtain labs at follow-up. Patient should follow-up with her primary care doctor next week. I discussed with the patient's that she should drink ensures to maximize her nutrition.
--- NOTE | 2025-07-13 12:13 | PC.NURSE ---
Discharge: Patient pleasant and cooperative, alert and oriented. Patient vitally stable, lungs clear, BS WNL, IV removed, catheter intact. Patient denies pain. Patient abdominal lap sites x3 C/D/I, dressing over the incision from removed ELINOR drain was changed, with bacitracin applied. Patient tolerating regular diet, and urinating well. Patient SBA/walker. Patients signed belongings sheet and discharge form as patient is blind. Patient nor had further questions regarding discharge information. Patient left the floor by wheelchair to home at 1205.
--- NOTE | 2025-07-13 13:18 | P.DS_ITS ---
DS: Providers Provider Date Seen: 07/13/25 Date of admission: 07/11/25 23:40 Primary care physician: Beau Wayne MD Admitting Clinician: Vanessa Strong MD Attending Physician on discharge: Pedro Solis MD Date of Discharge: 07/13/25 DS: Diagnosis Discharge Diagnosis (1) S/P laparoscopic cholecystectomy: Status: Acute Problem details: - CT abdomen and pelvis showed borderline dilatation of the gallbladder with diffuse wall heterogeneity and cholelithiasis. Findings may represent chronic or possible early acute cholecystitis. - right upper quadrant ultrasound showed multi cystic focus at the gallbladder fundus that may represent developmental variation or sequela of prior /chronic cholecystitis. - S/P Zosyn - S/P cholecystectomy without complications but an intraoperative cholangiogram was unsuccessful concerning for biliary obstruction. Thus patient was discharged to [facility] for ERCP and and now patient is back for ongoing postoperative care. - 07/11: An upper EUS was performed at [facility] and it showed the following: No choledocholithiasis or biliary obstruction identified. Normal caliber bile duct with a maximum diameter of 6.8 mm. (2) Choledocholithiasis: Status: Acute Problem details: Unable to perform intra operative cholangiogram. Concern for obstructing biliary stone. Transferred to [facility]. EUS was normal. Transferred back to [facility] for postoperative care (3) Acute dyspnea: Status: Acute Problem details: - 07/10/2025: Sudden onset postop status post laparoscopic cholecystectomy. Differential diagnosis includes acute diastolic heart failure, volume overloaded state postop, acute myocardial infarction, COPD exacerbation, panic attack. I doubt direct complication of surgery she just had but still keep this in the differential. Does not appear to have pneumothorax, acute coronary syndrome, pulmonary embolism. - furosemide 40 mg IV x1 dose and monitor - Law[place] catheter placed and monitor input and output - initiated discussion with family - will discuss with Dr. Abbott/surgeon senior automation engineer 07/11/2025: Patient reports no dyspnea but is still requiring oxygen this morning to maintain O2 sats above 90%. Continue to monitor and evaluate after return from [facility] (4) Acute hypoxic respiratory failure: Status: Acute Problem details: Resolved. Postop hypoxia suspected to be a combination of some volume overload, sedation from anesthesia and pain medication and possible underlying sleep apnea. (5) Weakness: Status: Acute Problem details: Postoperatively was quite weak and had some mobility issues. These resolved by discharge DS: Summary Hospital Course Hospital Course: 84-year-old female seen in followup of hospital admission for acute cholecystitis now status post cholecystectomy. Intraoperatively they were unable to do a cholangiogram. There was concern for a biliary obstruction and plan is for her to be transfer to [facility] for ERCP today. Due to a shortage of hospital beds she will likely be transferred back to [facility] for postoperative care. Postoperatively patient also had acute dyspnea. Evaluation at that time suggested volume overload and she receive some diuresis which improved but did not resolve her hypoxia. On July [address] [facility] for evaluation of suspected biliary stone. EUS showed no obstruction and she was transferred back to [facility]. She reports generally feeling better today. Not having significant pain. No fever. No dyspnea. Overnight she was still mildly hypoxic requiring 1 L of oxygen per nasal cannula. She is tolerating p.o. food and fluid well. Starting to move better with therapy. 07/13/2025: Patient has been off oxygen. She has no dyspnea. She is eating well. She is moving better with ambulation with a walker. Discharge to home with ongoing use of walker at home Status at Discharge Functional status at discharge: uses cane/walker Overall status at discharge: patient is progressing back to baseline Time Spent with Patient Time attestation: Total time spent providing and/or coordinating discharge services: 35 minutes Exam Narrative: Exam Narrative: She is alert and appears in no distress. Breathing is normal. Cardiovascular: S1, S2, regular rate and rhythm Abdomen : Bowel sounds are present. Incisions are without erythema or drainage. She has minimal tenderness. Extremities without edema. Const: Vital Signs, click to edit/add: Vital Signs - 24 hr 07/12/25 15:12 07/12/25 15:51 07/12/25 15:51 Temperature 98.3 F Pulse Rate 64 Pulse Rate [Pulse Oximeter] 63 63 Respiratory Rate 18 18 Blood Pressure [Le ft Arm] 127/52 L Blood Pressure [Ri ght Arm] Pulse Oximetry 94 Oxygen Delivery Me thod Room Air Oxygen Flow Rate 07/12/25 15:51 07/12/25 19:50 07/12/25 19:55 Temperature 97.6 F Pulse Rate Pulse Rate [Pulse Oximeter] 65 Respiratory Rate 18 18 Blood Pressure [Le ft Arm] Blood Pressure [Ri ght Arm] 147/65 H Pulse Oximetry 94 84 L 94 Oxygen Delivery Me thod Room Air Room Air Nasal Cannula Oxygen Flow Rate 1 07/12/25 20:00 07/12/25 21:39 07/12/25 22:28 Temperature Pulse Rate 58 L Pulse Rate [Pulse Oximeter] Respiratory Rate 18 Blood Pressure [Le ft Arm] Blood Pressure [Ri ght Arm] Pulse Oximetry 94 93 Oxygen Delivery Me thod Nasal Cannula Oxygen Flow Rate 1 07/12/25 23:00 07/13/25 02:50 07/13/25 08:55 Temperature 97.3 F L 97.7 F 97.5 F L Pulse Rate Pulse Rate [Pulse Oximeter] 59 L 57 L 62 Respiratory Rate 14 16 20 Blood Pressure [Le ft Arm] 140/48 H Blood Pressure [Ri ght Arm] 153/61 H 135/59 L Pulse Oximetry 95 97 92 Oxygen Delivery Me thod Room Air Room Air Room Air Oxygen Flow Rate 1 07/13/25 08:55 07/13/25 08:55 Temperature Pulse Rate Pulse Rate [Pulse Oximeter] 62 Respiratory Rate 20 20 Blood Pressure [Le ft Arm] Blood Pressure [Ri ght Arm] Pulse Oximetry 92 Oxygen Delivery Me thod Room Air Oxygen Flow Rate Documenting provider has reviewed patient's vital signs: yes DS: Data Data Completed and Pending Labs on day of discharge: Labs from last 24 hours 07/13/25 06:30 VBG pH 7.437 H VBG pCO2 53 H VBG pO2 44.8 VBG HCO3 36 H Sodium 133 L Potassium 3.8 Chloride 94 L Carbon Dioxide 36 H Anion Gap 3 L BUN 19 Creatinine 0.9 Estimated Creat Clear 39.20 Estimated GFR 63 Glucose 107 Calcium 9.0 Magnesium 2.0 Total Bilirubin 1.4 Direct Bilirubin 0.9 H AST 63 H ALT 59 H Alkaline Phosphatase 301 H Total Protein 6.4 Albumin 3.2 L Discharge Plan Discharge Disposition: Home, Self-Care Date of Admission: 07/11/25 23:40 Attending Provider on Discharge: Sandhya Vallejo Primary Care Provider: Beau Wayne Condition: Improved Anticipated Discharge Date/Time: 07/13/25 08:58 Discharge Medications: Continued aspirin 325 mg tablet 325 mg PO DAILY hydrochlorothiazide 25 mg tablet 25 mg PO QAM Qty: 90 3RF metoprolol succinate 100 mg tablet extended release 24 hr 100 mg PO DAILY simvastatin 40 mg tablet 40 mg PO HS levothyroxine 75 mcg tablet 75 mcg PO DAILY omeprazole 20 mg capsule,delayed release(DR/EC) 20 mg PO DAILY Discharge Orders: Discharge Order (Routine); Ordered 07/13/25 Ordered By: Douglas Solis Patient Education: Laparoscopic Cholecystectomy (DC) Additional Instructions: drink Ensure or other protein drinks at least 2x day. Activity Level: No strenuous activity Discharge Diet: Regular Follow Up Appointments: Dawn Abbott MD [Staff Physician, General Surgery] - 07/24/25 2:15 pm Referral Note: [facility] for hospital follow-up. Beau Wayne MD [Primary Care Provider, Family Practice] Forms: [facility] Belong[facility], [facility] Instructions Discharge Comments: Make an appointment for follow-up with in [facility] in 2 weeks.
== END 2025-07-13 12:05 | disposition home or self-care (01) | DRG 189 ==
PROVIDERS: Family Medicine; Admitting Provider Student in an Organized Health Care Education/Training Program; PCP Family Medicine; Visit Provider Student in an Organized Health Care Education/Training Program
DX: J95.821 Acute postprocedural respiratory failure (principal); R79.89 Other specified abnormal findings of blood chemistry; R53.1 Weakness; K21.9 Gastro-esophageal reflux disease without esophagitis; Z90.49 Acquired absence of other specified parts of digestive tract; I25.10 Atherosclerotic heart disease of native coronary artery without angina pectoris; I10 Essential (primary) hypertension; Z95.5 Presence of coronary angioplasty implant and graft; Z95.818 Presence of other cardiac implants and grafts; H91.8X9 Other specified hearing loss, unspecified ear; Z97.4 Presence of external hearing-aid; E03.9 Hypothyroidism, unspecified; E78.5 Hyperlipidemia, unspecified; H35.30 Unspecified macular degeneration; Z85.038 Personal history of other malignant neoplasm of large intestine
CPT/HCPCS: 36415; 80048; 80053; 80076; 82248; 82803; 83735; 85027; 94761; 97116; 97162; 97165; 97530; 97535; A9270; J1650; J1938; J2543; J3475; J7050

== ENCOUNTER 2025-07-21 02:23 | Outpatient (CLI) | payer MEDICARE, OTHER, SELFPAY | END 2025-07-21 02:24 | disposition home or self-care (01) | LOC: AMB 07-22 10:29 | PROVIDERS: PCP Family Medicine; Visit Provider Family Medicine | DX: R10.9 Unspecified abdominal pain (principal) | CPT/HCPCS: A0425; A0427 ==

== ENCOUNTER 2025-07-21 03:02 | Emergency (ER) | payer MEDICARE, OTHER, SELFPAY ==
--- OUTSIDE RECORDS SUMMARY | 2025-07-21 03:04 | XMS_ITS | Clinical Summary ---
Author Organization [employer] [facility] Address [address] [place] [address] Care Team Providers Care Associate Principal Name Role Phone None Primary Care Provider Unavailabl e Allergies No known active allergies Encounters Date Type Department Care Team Description 07/11/2025 2:46 PM CDT Anesthesia Event [facility] [address] [place] [address] Emiliano Riojas MD 07/11/2025 1:10 PM CDT - 07/11/2025 3:25 PM CDT Surgery [facility] [address] [place] [address] Josey Norman MD ENDOSCOPIC ULTRASOUND UPPER and TTS balloon dilation 07/11/2025 12:04 PM CDT - 07/11/2025 5:24 PM CDT Hospital Encounter [facility] [address] [place] [address] Josey Norman MD Discharge Disposition: Health Care Facility Not On List 07/11/2025 Travel 07/10/2025 Lab Requisition [facility] [phone] Dawn Abbott MD from Last 3 Months Social History Tobacco Use Types Packs/Day Years Used Date Smoking Tobacco: Never Assessed Comments Unknown Sex and Gender Information Value Date Recorded Sex Assigned at Not on file Legal Sex Female 11:34 AM CDT Gender Identity Not on file Sexual Orientation Not on file Last Filed Vital Signs Vital Sign Reading Time Taken Comments Blood Pressure 138/57 07/11/2025 5:10 PM CDT Pulse 72 07/11/2025 5:10 PM CDT Temperature 36.9 C (98.4 F) 07/11/2025 3:20 PM CDT Respiratory Rate 16 07/11/2025 5:10 PM CDT Oxygen Saturation 100% 07/11/2025 5:10 PM CDT Inhaled Oxygen Concentration - - Weight 72.1 kg (159 lb) 07/11/2025 12:05 PM CDT Height 167.6 cm (5' 6) 07/11/2025 12:05 PM CDT Body Mass Index 25.66 07/11/2025 12:05 PM CDT Plan of Treatment Health Maintenance Due Date Last Done Comments Tetanus booster 1951 Depression screening for age 12+ 1952 BMI (ht and wt on same day) for age 18+ 1958 Pneumococcal series for age 50+ (1 of 1 - PCV) 1990 Zoster (shingles) series for age 50+ (1 of 2) 1990 DEXA/DXA scan for age 65+ 2005 RSV vaccine for adults or (1 - 1-dose 75+ series) 2015 COVID-19 vaccine series (2 - season) 2025 12/07/2022 Influenza Vaccine (#1) 2025 Hepatitis B series for 19+ Aged Out N o longer eligible based on patient's age to complete this topic Procedures Procedure Name Priority Date/Time Associated Diagnosis Comments ENDOSCOPIC ULTRASOUND UPPER 07/11/2025 2:39 PM CDT see dictation ENDOSCOPY 07/11/2025 2:38 PM CDT LAB TRACKING EVENT Routine 07/10/2025 12 :00 PM CDT PATH TISSUE EXAM Routine 07/10/2025 9:26 AM CDT from Last 3 Months Results * ENDOSCOPY (07/11/2025 2:38 PM CDT) 07/11/2025 2:38 PM CDT Narrative Transcriptions Josey Norman MD - 07/11/2025 3:51 PM CDT [facility] Patient Name: Nalini Stark Procedure Date: 07/11/2025 Gender: Female Date of : 1940 Admit Type: Outpatient Procedure: Upper EUS Proceduralist: Josey Norman MD Indications/Pre-Op Diagnosis: Elevated liver enzymes; 84F who [facility] to [facility] with weakness found tohave acute cholecystitis status post laparoscopic cholecystectomy with uptrendingtransaminases. Total bilirubin downtrending but still elevated. For EUS for further evaluation and ERCP if indicated. Medications: Monitored Anesthesia Care Procedure Description: Risk of bleeding, infection, perforation, pancreatitis, need for surgery, remote chance of and alternatives were discussed, andthe patient gave informed consent. The endoscope [id number] was introduced through the mouth, and advanced to the second part of duodenum. Complications: No immediate complications. Estimated Blood Loss & Specimen: Estimated blood loss: none. Specimen collected: None Findings: The pylorus was patent however there was a thick muscular ring preventing passage of the echoendoscope. A TTS dilator was passed through the scope. Dilation with a 12-13.5-15 mm balloon dilator was performed to 15 mm. ENDOSONOGRAPHIC FINDING: : There was no sign of significant endosonographic abnormality in the common bile duct. The maximum diameter of the duct was 7 mm. Nostones and ducts of normal caliber were identified. Evidence of a previous cholecystectomy was identified endosonographically. ENDOSCOPIC FINDING: : The major papilla was normal. Impressions/Post-Op Diagnosis: - No choledocholithiasis or biliary obstruction identified. - Normal caliber bile duct with a maximum diameter of 6.8 mm. Recommendation: - [facility]. - Resume previous diet. - Would continue to trend LFTs while inpatient. - Appreciate primary team care, inpatient GI team to sign off now. Josey Norman MD 07/11/2025 3:51:16 PM Note Initiated On: 07/11/2025 2:38 PM us Josey Norman MD PROCEDURE ORD Fin al Result * LAB TRACKING EVENT (07/10/2025 12:00 PM CDT) Other (Other) Client Collect / Unknown 07/10/2025 12:00 PM CDT 07/10/2025 2:48 PM CDT us Dawn Abbott MD LAB BILL ONLY Final Re s[facility] [address] [place] [id number], [place] * PATH TISSUE EXAM (07/10/2025 9:26 AM CDT) Case Report Pathology Report Case: [id number] Authorizing Provider: Dawn Abbott MD Collected: 07/10/2025 09 Ordering Location: [facility] Received: 07/10/2025 1501 Pathologist: Sergio Ortega MD Specimen: Gallbladder 07/15/2025 11:22 AM CDT [facility] Final Diagnosis A) GALLBLADDER, CHOLECYSTECTOMY: 1. Benign biliary cysts with rupture, foreign body giant cell reaction, fibrosis and abscess formation 2, Extensive, marked chronic cholecystitis 3. Cholelithiasis 4. Negative for dysplasia and malignancy 5. One benign reactive pericystic lymph node 07/15/2025 11:22 AM CDT [facility] ENTRAL LABORATORY at 1122 CDT Clinical Information Ms. Stark is a 84 y.o. with acute cholecystitis who undergoes cholecystectomy. 07/15/2025 11:22 AM CDT [facility] Gross Description A) Received in formalin, labeled with the patient's name and gallbladder, is an 11.0 x 3.2 x 2.7 cm intact cholecystectomy specimen characterize by smooth dull mueller-pink focally hyperemic serosa and mueller shaggy focally cauterized soft tissue at the liver bed. The specimen is inked as follows: Cystic duct margin = blue Serosa = green Liver bed = black There is a 1.7 x 1.1 x 0.9 cm mueller-pink focally hyperemic cystic duct lymph node, which is serially sectioned to reveal mueller-pink and red hyperemic cut surfaces. Opening the gallbladder reveals copious amounts of brown sludgelike bile containing numerous black granular calculus fragments (0.1 to 0.4 cm in greatest dimension). There is a 6.3 x 2.8 x 2.4 cm mass at the fundus, characterized by mueller-pink focally hyperemic solid/cystic cut surfaces (cysts range from 0.2 to 1.0 cm in greatest dimension and contain clear watery fluid). This mass measures 6.3 cm from the cystic duct margin, 0.1 cm from the liver bed, and grossly involves the muscularis (without extension to the mucosal/serosal surfaces). The uninvolved gallbladder wall averages 0.2 cm in thickness. The gallbladder mucosa is green/brown and velvety with no polyps. Fuller Brush Man sections are submitted as follows: 1. Cystic duct margin (en face, inked blue); cystic duct lymph node 2. Remainder of cystic duct lymph node 3-8. Mass, sales representative consultant 3-4. Mass with closest liver bed 5-6. Mass invading muscularis with adjacent mucosa 7-8. Additional sales representative consultant mass 9. Fuller Brush Man uninvolved gallbladder wall from neck ADW 07/11/2025 07/15/2025 11:22 AM T [facility] EN[facility]AL [facility] Microscopic Description The final diagnosis is based on microscopic examination of appropriate sections of all specimens. 07/15/2025 11:22 AM T [facility]FL [facility]AT[facility] Additional Information Interpreted at [facility] - [address] [facility] [address] [address] 07/15/2025 11:22 AM [facility] Other SPECIMEN FROM GALLBLADDER / Unknown 07/10/2025 9:26 AM CDT 07/10/2025 3:01 PM CDT us Dawn Abbott MD PATHOLOGY/CYTOLOGY Final Result [facility] [address] [place] [address], from Last 3 Months Advance Directives * Full Code (Latest Code Status on File) Date Activated Date Inactivated Comments 07/11/2025 5:39 PM 07/11/2025 7:44 PM Question Answer Comments Code Status Discussion: Unable to Assess Preferences, Provider to review later Care Teams Associate Principal Relationship Specialty Start Date End Date None . PCP - General 07/11/25
[2025-07-21 03:05] VITALS: BP 160/66; PULSE 65; RESP 18; TEMP 36.7; O2SAT 96; BMI 25.2
[2025-07-21 03:15] VITALS: BP 163/60; PULSE 61; RESP 18; O2SAT 98
[2025-07-21 03:21] LABS: Appearance Urine Clear (Clear)
--- NOTE | 2025-07-21 03:28 | CRLHL7_ITS ---
For Patients: As a result of the Century Cures Act, medical imaging exams and procedure reports are released immediately into your electronic medical record. You may view this report before your referring provider. If you have questions, please contact your health care provider. Indication: Vertigo Technique: Noncontrast CT through the head with multiplanar reformats Comparison: CT head performed 09/22/2022 Findings: Brain: No acute hemorrhage. No acute infarct. No significant mass effect or midline shift. No gross evidence of a mass lesion or cerebral edema. Moderate chronic senescent disease. Ventricles: No acute abnormality appreciated. Orbits, sinuses, mastoids: No acute abnormality appreciated. Calvarium and soft tissues: No acute abnormality appreciated. Impression: No acute intracranial abnormality appreciated. Please note that all CT scans at this facility use dose modulation, iterative reconstruction, and/or weight-based dosing when appropriate to reduce radiation dose to as low as reasonably achievable. Dictated by Esvin Levy MD @ 07/21/2025 3:56:03 AM (Electronically Signed)
[2025-07-21 03:30] VITALS: BP 163/56; PULSE 62; RESP 18; O2SAT 97
--- NOTE | 2025-07-21 03:56 | ED.GENADULT ---
HPI - General Adult General Chief complaint: Dizziness/Vertigo Stated complaint: dizzy, abdominal pain Time Seen by Provider: 07/21/25 03:05 Source: patient and family History of Present Illness HPI narrative: 84-year-old female brought in by EMS for evaluation dizziness spell. Nursing triage reports that patient was having abdominal pain, she adamantly denies it. denies that she was having any abdominal pain today either. She reports that she was in bed when she had urged to go to the bathroom. She tends to be a bit unsteady on her feet, so asks her for help getting up to go to the bathroom in the middle of the night. She alerted him and when she went to sit up, she felt a sudden sensation of dizziness. She describes this specifically as the room spinning type of dizziness and she felt very off balance. She reports that she laid herself back down, she did not pass out. She does remember that part clearly. states that she was not unresponsive, did not have any evidence of seizure activity and she was arousable. This certainly does not sound like a syncopal episode. She reports that the room was spinning for a couple of minutes. Patient reports that she is feeling completely asymptomatic now. reports that the symptoms seem like they lasted for probably about 2-3 minutes tops. He agrees that she is acting at baseline now. He reports that she is frequently fatigued, more energetic in the mornings, has been eating and drinking normally since she was discharged from the hospital after her uncomplicated gallbladder surgery a week ago. She has had no fevers. She reports her bowels are moving normally. She had a similar episode that felt like the room was spinning that lasted just a few seconds a few days ago. She did not think much of it. It does seem as though he has noticed some memory changes but they do not seem new and focal. Orthostatic blood pressures in triage were normal. called EMS right away, they arrived within minutes and found her to be neurologically normal. She denies chest pain, shortness of breath, fevers, nausea vomiting or symptoms of focal infection. She has had no recent falls. No history of seizure disorder or neurological conditions. She has no other acute concerns today. Past medical history notable for hypertension, anxiety, weakness. She had a recent cholecystectomy for choledocholithiasis. No recent medication changes. Review of the records shows that she does take metoprolol and hydrochlorothiazide, no [place] inhibitors. Remainder medications are reviewed. ROS is notable for no other acute changes besides the vertigo describes dizziness times 12 systems. Related Data Home Medications ?Medication ?Instructions ?Recorded ?Confirmed aspirin 325 mg tablet 325 mg PO DAILY 04/14/23 07/21/25 levothyroxine 75 mcg tablet 75 mcg PO DAILY 07/10/25 07/21/25 metoprolol succinate 100 mg 100 mg PO DAILY 07/10/25 07/21/25 tablet,extended release 24 hr omeprazole 20 mg capsule,delayed 20 mg PO DAILY 07/10/25 07/21/25 release simvastatin 40 mg tablet 40 mg PO HS 07/10/25 07/21/25 Previous Rx's ?Medication ?Instructions ?Recorded hydrochlorothiazide 25 mg tablet 25 mg PO QAM #90 tabs 03/17/25 Allergies Allergy/AdvReac Type Severity Reaction Status Date / Time tetanus toxoid, adsorbed Allergy Unknown Unknown Verified 07/21/25 03:09 [facility] Medical History Macular degeneration ?H35.30 - Unspecified macular degeneration (ICD-10) Hypothyroidism ?E03.9 - Hypothyroidism, unspecified (ICD-10) Hearing loss ?H91.90 - Unspecified hearing loss, unspecified ear (ICD-10) Gastroesophageal reflux disease ?K21.9 - Gastro-esophageal reflux disease without esophagitis (ICD-10) Hypertension ?I10 - Essential (primary) hypertension (ICD-10) Hyperlipidemia ?E78.5 - Hyperlipidemia, unspecified (ICD-10) Malignant neoplasm of colon (1992) ?C18.9 - Malignant neoplasm of colon, unspecified (ICD-10) Cerumen impaction ?H61.20 - Impacted cerumen, unspecified ear (ICD-10) Granuloma annulare ?L92.0 - Granuloma annulare (ICD-10) Health care directive on file ?Z78.9 - Other specified health status (ICD-10) Surgical History S/P laparoscopic cholecystectomy ?Z90.49 - Acquired absence of other specified parts of digestive tract (ICD-10) Coronary artery disease status post coronary stent insertion ?I25.10 - Atherosclerotic heart disease of [place] coronary artery without angina pectoris (ICD-10) ?Z95.5 - Presence of coronary angioplasty implant and graft (ICD-10) History of hand surgery ?Z98.890 - Other specified postprocedural states (ICD-10) Status post coronary artery stent placement (1999) ?Z95.5 - Presence of coronary angioplasty implant and graft (ICD-10) History of surgery on right wrist ?Z98.890 - Other specified postprocedural states (ICD-10) History of shoulder surgery ?Z98.890 - Other specified postprocedural states (ICD-10) History of partial surgical removal of colon (1992) ?Z90.49 - Acquired absence of other specified parts of digestive tract (ICD-10) History of cataract extraction ?Z98.49 - Cataract extraction status, unspecified eye (ICD-10) Family History Other Diabetes Social History What is your current living situation?: I presently have a place to live Problems where you live: no known problems Problems where you live details: N/A In the past 12 months, utilities in danger of being shut off: no In past 12 months, lack of transportation kept you from medical appts, meetings, work, or getting things needed for daily living: no In the past 12 mos, have been you worried that your food would run out before you had money to buy more?: never true In the past 12 mos, the food you bought just didn't last and you didn't have money to buy more?: never true Highest level of school completed/degree received: Associate degree: occupational, technical, vocational program Smoking Status: Former smoker Second hand tobacco smoke exposure: No How often do you have a drink containing alcohol: never AUDIT-C Alcohol total score: 0 Non-prescribed substance use: denies use Caffeine: Yes How often does anyone, including family, friends and others, physically hurt you: never How often does anyone, including family, friends and others, insult or talk down to you: never How often does anyone, including family, friends and others, threaten you with harm: never How often does anyone, including family, friends and others, scream or curse at you: never service: No Exam Const: Vital Signs, click to edit/add: Vital Signs - 24 hr 07/21/25 03:05 Temperature 98.0 F Pulse Rate [Right Pulse Oximeter] 65 Respiratory Rate 18 Blood Pressure [Ri ght Upper Arm] 160/66 H Pulse Oximetry 96 Oxygen Delivery Me thod Room Air Documenting provider has reviewed patient's vital signs: yes Common normals: no apparent distress, oriented x3 and alert General appearance: well kempt Other: Mild memory impairment but awake, alert. Appears nontoxic, well-hydrated and well-nourished. Clean and well-kempt. HENMT: Common normals: normocephalic, moist oral mucous membranes, oropharynx normal and dentition normal Head and scalp: normocephalic Face and sinus: normal facial exam Mouth: oral and palatal mucosa normal Throat: posterior oropharynx normal Eye: Other: Post lens implant appearance of the cornea and iris but otherwise pupils are equal round and reactive to light. Normal extraocular movements with no nystagmus. Neck & C-Spine: Common normals: full ROM and no lymphadenopathy General: normal visual inspection Resp: Common normals: normal respiratory effort, no use of accessory muscles and clear to auscultation bilaterally Effort & inspection: able to speak in complete sentences Auscultation: clear to auscultation bilaterally Cardio: Common normals: regular rate, regular rhythm, S1 normal heart sound, S2 normal heart sound and no murmurs Rate: regular rate Rhythm: regular rhythm Heart sounds: S1 normal and S2 normal GI: Common normals: Normal to inspection, nondistended, normoactive bowel sounds present, soft to palpation, non-tender, no hepatosplenomegaly and no masses Palpation: soft and no hepatosplenomegaly Other: Surgical scars healing well no redness or drainage. Extremity: Common normals: normal to inspection and normal capillary refill Neuro: Common normals: oriented x3, CN's II-XII intact bilaterally and moves all extremities Sensorium/orientation: alert Speech: speech normal Motor exam: strength 5/5 throughout and no tremor noted Psych: Appearance: well kempt Attitude: engaged Insight: fair Judgement: fair Skin: Common normals: no rashes or lesions noted General skin exam: no rashes or lesions noted Course Course ED Course: 84-year-old female with episode of dizziness described as vertiginous in nature, result in definitely less than 5 minutes, likely less than 3 minutes. Now asymptomatic. Differential diagnosis including dehydration, benign positional vertigo, dizzy spells related to brain aging, intracranial hemorrhage, intracranial mass. My suspicion is that this is a combination of aging but I do wonder if she is symptomatically bradycardic from her metoprolol. Pulse is right around 60 here in the ED which she may not be tolerating at her age any longer. Counseled lesion via believe that this seems like it is related to eating get unfortunately is likely to continue happening. Based on initial exam, there is certainly no persistent neurological changes that would suggest stroke and the story does not really suggest TIA. Will obtain head CT, typical cardiac, electrolytes, CBC and metabolic labs. I suspect that these will likely be normal. She will be kept on a quality assurance monitor body. Her records do not indicate a history of AFib or arrhythmia. Most likely a will recommend that we reduce her metoprolol by half, continue some home monitoring and follow-up with primary care provider. If she is still having symptomatic spells, would discontinue beta-donald or consider switching to Coreg for better blood pressure control with less potential bradycardia. If this does not improve her symptoms, most likely this is related to aging related changes in the brain. Slow position changes for safety discussed. Reevaluation(s) Reevaluation #1: Update: Patient has had a couple of outbursts where she is yelling out in the ED, seemingly confused and anxious, it lasts a few seconds. When we rushed in and ask her what is wrong, she abruptly stops, stating that she is confused or that she is short of breath but she is able to speak in full sentences with normal oxygen levels, stable vitals. She very quickly will redirect from screaming to answering questions perfectly and then act like absolutely nothing happened and will go back to conversing with family. They report that she woke from sleep doing this while we were not in the room. tells me that this is what happened with the episode but had him concerned tonight. It getting more clear that she may have confabulated the dizziness. We have had her on a quality assurance monitor body this entire time and have not appreciated any abnormalities. She remains asymptomatic after we redirect her. Repeat exam does not show any abdominal tenderness, cardiopulmonary abnormality or focal neurological deficit. Spends more time talking to and son about her behavior at home and it sounds like she has been having more memory loss, fatigue in behavior changes that seem consistent with some early sundowning in the evenings. She does very well in the mornings, especially if kept in her usual routine. But they do agree that there seems to be some aging changes. We spent some time talking about the head CT that did not show any strokes, tumors or bleeds but does show a moderate amount of degenerative changes. The blood work does not show anything terribly out of the ordinary that would explain her symptoms either. There is no occult urinary infection. Alk phosphatase is a little elevated but that is to be expected at this point postoperatively. We came up with a plan that we have noticed a little bit of mild bradycardia that is questionably symptomatic here in the ED. she is having something that is causing her distress and it may be difficult for her with her memory impairment to put into words. I think that a consideration for dizziness is certainly reasonable and this may be worse by bradycardia. Heart rate goes as low as the high 50s here in the ED. I recommended we try to cut her metoprolol dose in half. I would like for to follow up with primary care provider in 10 to 14 days to discuss the spells further, see if 80 more patterns have been observed and see how the blood pressure and heart rate are doing off of the higher dose of metoprolol. Could also consider switching to Coreg for blood pressure control with less risk of bradycardia. There are certainly other options to treat her heart disease as well. Again, I am not confident that this is contributing to her ?dizzy? or anxiety/sundowning spells. ?road test? here in the ED showed no focal movement deficit prior to discharge. Counseled family that there are medicines that can slow dementia sometimes and they can consider discussing this with their primary care team. It is difficult to tell how someone sprain will continue to age but there may come a time when the needs more help caring for her, especially overnight. Patient have a plan as a family of what that would look like for them when the time comes. Reduce the metoprolol to 50 mg once daily as described above. Alarm symptoms were reviewed that would warrant ED presentation. Typical movement safety and pauses with position changes reviewed. All questions answered. Vital Signs Vital signs: Initial Vital Signs Temperature 98.0 F 07/21/25 03:05 Temperature Source Temporal Artery Scan 07/21/25 03:05 Pulse Rate 65 07/21/25 03:05 Respiratory Rate 18 07/21/25 03:05 Blood Pressure 160/66 H 07/21/25 03:05 Blood Pressure Mean 97 07/21/25 03:05 Blood Pressure Position Supine 07/21/25 03:05 Pulse Oximetry 96 07/21/25 03:05 Oxygen Delivery Method Room Air 07/21/25 03:05 Vital Signs Temperature 98.0 F 07/21/25 03:05 Pulse Rate 65 07/21/25 03:05 Respiratory Rate 18 07/21/25 03:05 Blood Pressure 160/66 H 07/21/25 03:05 Pulse Oximetry 96 07/21/25 03:05 Oxygen Delivery Method Room Air 07/21/25 03:05 Temperature 98.0 F 07/21/25 03:05 Pulse Rate 65 07/21/25 03:05 Respiratory Rate 18 07/21/25 03:05 Blood Pressure 160/66 H 07/21/25 03:05 Pulse Oximetry 96 07/21/25 03:05 Oxygen Delivery Method Room Air 07/21/25 03:05 Medical Decision Making Lab Data Lab results reviewed: Yes I reviewed the patient's lab results Lab results narrative: No significant leukocytosis or anemia. Alk-phos is mildly elevated without would make sense at this stage post cholecystectomy. Creatinine looks good electrolytes look good, no dehydration. No occult urinary infection. No signs of acute cardiac process. Labs: Lab Results 07/21/25 07/21/25 Range/Units 03:11 03:55 WBC 6.31 (4.50-11.00) K/uL RBC 3.73 L (4.00-5.20) m/uL Hgb 11.9 L (12.0-16.0) gm/dL Hct 36.1 (33.0-51.0) % MCV 97 (80-100) fL MCH 32 (26-34) pg MCHC 33 (32-36) gm/dL RDW Coeff of Claudia 12.4 (11.5-15.5) % Plt Count 317 (140-440) K/uL Neut % (Auto) 66.0 (42.0-72.0) % Lymph % (Auto) 22.5 (20-44) % [place] % (Auto) 7.9 (0.0-11.0) % Eos % (Auto) 2.7 (0.0-7.0) % Baso % (Auto) 0.6 (0.0-3.0) % Neut # (Auto) 4.16 (1.7-7.0) K/uL Lymph # (Auto) 1.42 (0.90-2.90) K/uL [place] # (Auto) 0.50 (0.00-0.90) K/UL Eos # (Auto) 0.17 (0.00-0.50) K/uL Baso # (Auto) 0.04 (0.00-0.30) K/uL Abs Immat Gran (auto) 0.02 (0.00-0.30) K/uL Imm/Tot Granulo (auto) 0.3 % Sodium 137 (135-149) mmol/L Potassium 3.4 L (3.6-5.1) mmol/L Chloride 101 (96-114) mmol/L Carbon Dioxide 32 (20-32) mmol/L Anion Gap 4 L (7-15) mEq/L BUN 21 (7-30) mg/dL Creatinine 0.9 (0.5-1.5) mg/dL Estimated Creat Clear 39.20 Estimated GFR 63 ml/min Glucose 146 H (60-115) mg/dL Lactate 1.6 (0.5-1.9) mmol/L Calcium 10.1 (8.4-10.6) mg/dL Total Bilirubin 0.6 (0.1-1.5) mg/dL AST 34 (12-35) U/L ALT 29 (4-35) U/L Alkaline Phosphatase 236 H (40-150) U/L C-Reactive Protein 1.9 H (0.5-1.0) mg/dL NT-Pro-B Natriuret Pep 291 (See Note) pg/mL Total Protein 7.0 (6.0-8.3) g/dL Albumin 3.7 (3.3-5.0) g/dL Urine Color Yellow (Yellow) Urine Appearance Clear (Clear) Urine pH 7.5 (5.0-8.5) Ur Specific [place] 1.020 (1.000-1.030) Urine Protein Negative (Negative) Urine Glucose (UA) Negative (Negative) Urine Ketones Negative (Negative) Urine Blood Negative (Negative) Urine Nitrite Negative (Negative) Urine Bilirubin Negative (Negative) Urine Urobilinogen 2.0 A (0.2-1.0) Ur Leukocyte Esterase Negative (Negative) Urine RBC 0-2 (0-2) Urine WBC 0-2 (0-5) Ur Squamous Epith Cells Moderate A (None-Few) Urine Bacteria Few A (None) POC Troponin I 0.00 L (0.01-0.04) ng/ml Imaging Data CT scan - head: Attestation: I have reviewed the pertinent imaging results. My impression: Degenerative changes but no bleeds, signs of old strokes or mass Radiologist's impression: Findings: Brain: No acute hemorrhage. No acute infarct. No significant mass effect or midline shift. No gross evidence of a mass lesion or cerebral edema. Moderate chronic senescent disease. Ventricles: No acute abnormality appreciated. Orbits, sinuses, mastoids: No acute abnormality appreciated. Calvarium and soft tissues: No acute abnormality appreciated. Impression: No acute intracranial abnormality appreciated. Please note that all CT scans at this facility use dose modulation, iterative reconstruction, and/or weight-based dosing when appropriate to reduce radiation dose to as low as reasonably achievable. Dictated by Esvin Levy MD @ 07/21/2025 3:56:03 AM (Electronic Signature) ECG Data Attestation: I personally reviewed and interpreted this ECG as follows: Prior ECG tracings: available for review Interpretation: Sinus rhythm with a rate of 60. T-waves are little flattened in the lateral leads but ST segments otherwise appear normal. Intervals and axis are otherwise normal. Stable EKG. Discharge Plan Discharge Clinical Impression: Dizzy spells, Dementia, Sundowning, Bradycardia Patient Disposition: Home w/ Parent or Adult Condition: Stable Instructions: Dementia (ED) Additional Instructions: As we discussed, the most notable thing that we see in the emergency room is that she is showing signs of memory impairment and behavior changes that are fairly classic for someone starting to develop dementia. Thankfully the CT scan of the head did not show any signs of bleeds, strokes, tumors. The blood work did not show any major abnormalities. Her heart rate does run a little slow which I am going to [place] back to. But most notably the behaviors that she is showing are consistent with someone who gets out of sorts and confused and has bouts of sudden anxiety. Consider use of the techniques that I demonstrated to help redirect the person, ask questions to see if they can clarify their symptoms. If this very quickly snaps them out of this spell, that is a very reassuring sign. Most of the time in the earlier stages of dementia, a person can be reassured by familiar people when they have these episodes like tonight. There were no signs in the blood work that there is an underlying infection or other cause as well. Everything seems to be healing well from the surgery too. Remember that mornings and keeping in a routine will be better for someone with this condition. Evenings, overnight away from home, major disruptions in typical routine are likely to increase these outbursts. There are medications which can slow memory loss if you would like to pursue those. Your primary care doctor would be an excellent source to review these. I do wonder if the low heart rate is causing worsening of the dizziness with position changes. Because of this, I would like to do a trial of decreasing the metoprolol to half of a pill for the next 2 weeks. Please make a follow-up appointment with Dr. Fortune in 10-18 days to re-evaluate the heart rate and blood pressure. See how the symptoms have been doing as well. We could also consider stopping the metoprolol and switching to carvedilol instead. This tends to drop the heart rate less. Remember that the most important thing is preventing falls in the Aging Brain and someone who has these dizzy spells. Please remember and remind the patient to pause for 30 seconds to 1 minute when going from lying down to sitting, then again from sitting to standing. Then again from standing to walking forward. Try to use a walker for balance. If there are new stroke-like symptoms or so significant neurological changes that are new and different, I recommend re-evaluation. Activity Level: Activity as Tolerated Discharge Diet: Regular Prescriptions: No Action aspirin 325 mg tablet 325 mg PO DAILY hydrochlorothiazide 25 mg tablet 25 mg PO QAM Qty: 90 3RF metoprolol succinate 100 mg tablet extended release 24 hr 100 mg PO DAILY simvastatin 40 mg tablet 40 mg PO HS levothyroxine 75 mcg tablet 75 mcg PO DAILY omeprazole 20 mg capsule,delayed release(DR/EC) 20 mg PO DAILY Follow Up/Referrals: Beau Wayne MD [Primary Care Provider, Family Practice] Stand Alone Forms: [employer] Info Instructions
[2025-07-21 03:59] LABS: Lactate Sepsis w/Reflex* 1.6 mmol/L (0.5-1.9)
[2025-07-21 04:00] VITALS: BP 166/70; PULSE 61; RESP 18; O2SAT 99
[2025-07-21 04:01] LABS: Hematocrit* 36.1 % (33.0-51.0); Hemoglobin* 11.9 gm/dL (12.0-16.0); Immature Granulocytes Abs Auto 0.02 K/uL (0.00-0.30); Immature Granulocytes Pct Auto 0.3 %; Lymphocytes Absolute Auto 1.42 K/uL (0.90-2.90); Mean Corpuscular HGB Conc 33 gm/dL (32-36); Mean Corpuscular Hemoglobin 32 pg (26-34); Mean Corpuscular Volume 97 fL (80-100); RDW Coefficient of Variation % 12.4 % (11.5-15.5); Red Blood Count* 3.73 m/uL (4.00-5.20); White Blood Count* 6.31 K/uL (4.50-11.00)
[2025-07-21 04:02] LABS: Slide Review Reflex No
[2025-07-21 04:14] LABS: Albumin* 3.7 g/dL (3.3-5.0); Chloride* 101 mmol/L (96-114); Potassium* 3.4 mmol/L (3.6-5.1); Sodium* 137 mmol/L (135-149)
[2025-07-21 04:17] LABS: Alanine Aminotransferase* 29 U/L (4-35); Alkaline Phosphatase* 236 U/L (40-150); Anion Gap 4 mEq/L (7-15); Aspartate Amino Transferase* 34 U/L (12-35); Bilirubin Total* 0.6 mg/dL (0.1-1.5); Blood Urea Nitrogen* 21 mg/dL (7-30); Carbon Dioxide* 32 mmol/L (20-32); Creatinine* 0.9 mg/dL (0.5-1.5); Est. Creatinine Clearance* 39.20; Estimated Glomerular Filt Rate 63 ml/min; Total Protein* 7.0 g/dL (6.0-8.3)
[2025-07-21 04:18] LABS: Calcium* 10.1 mg/dL (8.4-10.6); Glucose* 146 mg/dL (60-115)
[2025-07-21 04:27] LABS: NT Pro B Type NatriureticPept* 291 pg/mL (See Note)
[2025-07-21 04:41] LABS: Troponin, Point-of-Care* 0.00 ng/ml (0.01-0.04)
[2025-07-21 05:00] VITALS: BP 155/66; PULSE 63; RESP 18; O2SAT 96
== END 2025-07-21 05:30 | disposition home or self-care (01) ==
PROVIDERS: Emergency Provider Family Medicine; PCP Family Medicine
DX: R42 Dizziness and giddiness (principal); F03.90 Unspecified dementia, unspecified severity, without behavioral disturbance, psychotic disturbance, mood disturbance, and anxiety; F05 Delirium due to known physiological condition; R00.1 Bradycardia, unspecified
CPT/HCPCS: 36415; 70450; 80053; 81001; 83605; 83880; 84484; 85025; 86140; 87086; 93005; 99284; 99285

== ENCOUNTER 2025-09-12 10:01 | Emergency (ER) | payer MEDICARE, OTHER, SELFPAY ==
--- OUTSIDE RECORDS SUMMARY | 2025-07-10 18:00 | XMS_ITS | Continuity of Care Document ---
Author Organization [facility] Address [address] [address] [place] [address] Phone Care Team Providers Care Academic Associate Name Role Phone Emerson MESSINA, Josey Unavailable Unavailab le Procedures Procedure Date Ugi Endo; W/balloon Dilat Esop Ugi Endo; W/endo Ultrasound Ex Advance Directives Directive Yes / No Effective Date File Name No Information Encounters Encounter Description Practice Location Reason(s) For Visit Diagnoses Date Provider Providers Copied on Encounter [facility], [address] [address], [place], [place], [id number], [place] tel:[phone] [facility] No Information Emerson Dowling. [address] [place] [address], [place] [address], [place], [place], [id number], [place]. tel:[phone] Referring Provider: Josey Norman MD N, [address] [place] [address], [place], [address] . tel:[phone] Family History Family Member Type Diagnosis Age At Onset No Information Payers Payer name Insurance type Covered constitution party ID Authoriza tion(s) Medicare NGS MB [id number] [employer] Signature Medicare Supplement CI [id number] Social History Type Description Quantity Date Captured Comments Sex Female Smoking Status No Information Chief Complaint And Reason For Visit No Information Reason For Referral Reason For Referral No Information History Of Present Illness Encounter Date Complaint History Of Prese nt Illness No Information Functional Status Date Functional Assessmen t No Information Instructions Date Instruction Additional Infor mation No Information Assessments Type Assessment Date No Information Patient Care Teams Name Effective Dates (start - stop) Status Members No Information
[2025-09-12] VITALS (26 sets, daily range): BP systolic 119–161; BP diastolic 49–72; PULSE 64–83; RESP 12–24; TEMP 36.6; O2SAT 90–100
--- OUTSIDE RECORDS SUMMARY | 2025-09-12 10:05 | XMS_ITS | Clinical Summary ---
Author Organization [facility] Address [address] [place] [address] Care Team Providers Care Health Actuary Name Role Phone None Primary Care Provider Unavailabl e Allergies No known active allergies Encounters Date Type Department Care Team Description 07/11/2025 2:46 PM CDT Anesthesia Event [facility] [address] [place] [address] Emiliano Riojas MD 07/11/2025 1:10 PM CDT - 07/11/2025 3:25 PM CDT Surgery [facility] [address] [place] [address] Josey Norman MD ENDOSCOPIC ULTRASOUND UPPER and TTS balloon dilation 07/11/2025 12:04 PM CDT - 07/11/2025 5:24 PM CDT Hospital Encounter [facility] [address] [place] [address] Josey Norman MD Discharge Disposition: Health Care Facility Not On List 07/11/2025 Travel 07/10/2025 Lab Requisition [facility] [phone] Dawn Abbott MD from Last 3 Months [...] or (1 - 1-dose 75+ series) 2015 Influenza Vaccine (#1) 2025 Hepatitis B series [...] Elevated liver enzymes; 84F who presented to [facility] with weakness found tohave acute cholecystitis status post laparoscopic cholecystectomy with uptrendingtransaminases. Total bilirubin downtrending but still elevated. For EUS for further evaluation and ERCP if indicated. Medications: Monitored Anesthesia Care Procedure Description: Risk of bleeding, infection, perforation, pancreatitis, need for surgery, remote chance of and alternatives were discussed, andthe patient gave informed consent. The endoscope [id number] was introduced through the mouth, and advanced [...] PM Note Initiated On: 07/11/2025 2:38 PM Josey Norman MD PROCEDURE ORD Fin al Result * LAB TRACKING EVENT (07/10/2025 12:00 PM CDT) Other (Other) Client Collect / Unknown 07/10/2025 12:00 PM CDT 07/10/2025 2:48 PM CDT us Dawn Abbott MD LAB BILL ONLY Final Re sult [facility] [address] [place] [address], [place] * PATH TISSUE EXAM (07/10/2025 9:26 AM CDT) Case Report Pathology Report Case: [id number] Authorizing Provider: Dawn Abbott MD Collected: 07/10/2025 0926 Ordering Location: [facility] Received: 07/10/2025 1501 Pathologist: Sergio Ortega MD Specimen: Gallbladder 07/15/2025 11:22 AM CDT [facility] Final Diagnosis A) GALLBLADDER, CHOLECYSTECTOMY: 1. Benign biliary cysts with rupture, foreign body giant cell reaction, fibrosis and abscess formation 2, Extensive, marked chronic cholecystitis 3. Cholelithiasis 4. Negative for dysplasia and malignancy 5. One benign reactive pericystic lymph node 07/15/2025 11:22 AM CDT [facility] at 1122 CDT Clinical Information Ms. Stark is a 84 y.o. with acute cholecystitis who undergoes cholecystectomy. 07/15/2025 11:22 AM CDT [facility] Gross Description A) Received in [...] is green/brown and velvety with no polyps. Scrap Drop Engineer sections are submitted as follows: 1. Cystic duct margin (en face, inked blue); cystic duct lymph node 2. Remainder of cystic duct lymph node 3-8. Mass, consumer sales representative 3-4. Mass with closest liver bed 5-6. Mass invading muscularis with adjacent mucosa 7-8. Additional consumer sales representative mass 9. Scrap Drop Engineer uninvolved gallbladder wall from neck ADW 07/11/2025 07/15/2025 11:22 AM T [facility] Microscopic Description The final diagnosis is based on microscopic examination of appropriate sections of all specimens. 07/15/2025 11:22 AM T [facility] Additional Information [facility] at [facility] - [address], [place] [address] 07/15/2025 11:22 AM [facility] Other SPECIMEN FROM GALLBLADDER / Unknown 07/10/2025 9:26 AM CDT 07/10/2025 3:01 PM CDT Dawn Abbott MD PATHOLOGY/CYTOLOGY Final Result [facility] [address] [place] [address], [place] from Last 3 Months Insurance [facility] Member Subscriber Plan / Payer ( fective 2025-Present) Name:Nalini Stark Relation to Subscriber:Self Name:Nalini Stark Payer ID:Not on file Group ID:Not on file Type:Not on file Address: FOR [facility] MEDICARE PART A HB ONLY MEDICARE PART B HB ONLY MEDICARE PB ONLY Advance Directives * Full Code (Latest Code Status on File) Date Activated Date Inactivated Comments 07/11/2025 5:39 PM 07/11/2025 7:44 PM Question Answer Comments Code Status Discussion: Unable to Assess Preferences, Provider to review later Care Teams Health Actuary Relationship Specialty Start Date End Date None . PCP - General 07/11/25
--- NOTE | 2025-09-12 10:43 | ED.GENADULT ---
HPI - General Adult General Chief complaint: Weakness Stated complaint: weakness Time Seen by Provider: 09/12/25 10:22 Source: patient and family Mode of arrival: EMS Limitations: no limitations History of Present Illness HPI narrative: 84-year-old female presenting today with progressive weakness. Per her and son, patient has been getting weaker over the last month ever since she had her gallbladder removed. In the last week she has gotten even worse. She has a hard time getting out of bed. She is requiring assistance to do this or as generally she is able to do these things on her own. She has had very little appetite and has required significant persuasion to get her to eat or drink. If she could sleep all day, she would according to her . She sometimes is confused, but confusion is not the main concern. She has had significant short-term memory lapses. states that she will ask the time every 10 minutes or forget that she just had dinner in ask what is for dinner. Family states that they have been working her up for Alzheimer's, but the feel that the changes in her mentation and energy levels and strength have been quite acute. No fevers, no vomiting. No diarrhea. No rashes. No slurred speech. No focal neurologic deficits. states that every now and then she will complain of right upper quadrant abdominal pain, not associated with eating. Patient currently asymptomatic. Related Data Home Medications ?Medication ?Instructions ?Recorded ?Confirmed aspirin 325 mg tablet 325 mg PO DAILY 04/14/23 09/09/25 levothyroxine 75 mcg tablet 75 mcg PO DAILY 07/10/25 09/09/25 omeprazole 20 mg capsule,delayed 20 mg PO DAILY 07/10/25 09/09/25 release simvastatin 40 mg tablet 40 mg PO HS 07/10/25 09/09/25 lorazepam 0.5 mg tablet 0.5 mg PO .every 6 hrs PRN 09/09/25 09/09/25 Previous Rx's ?Medication ?Instructions ?Recorded hydrochlorothiazide 25 mg tablet 25 mg PO QAM #90 tabs 03/17/25 mirtazapine 7.5 mg tablet 7.5 mg PO QHS #30 tabs 09/09/25 Allergies Allergy/AdvReac Type Severity Reaction Status Date / Time tetanus toxoid, adsorbed Allergy Unknown Unknown Verified 09/12/25 10:03 Review of Systems Status of ROS: Reports: 10 or more systems reviewed and unremarkable except as noted in History and below PFSH PFSH Medical History Dementia ?F03.90 - Unspecified dementia, unspecified severity, without behavioral disturbance, psychotic disturbance, mood disturbance, and anxiety (ICD-10) Macular degeneration ?H35.30 - Unspecified macular degeneration (ICD-10) Hypothyroidism ?E03.9 - Hypothyroidism, unspecified (ICD-10) Hearing loss ?H91.90 - Unspecified hearing loss, unspecified ear (ICD-10) Gastroesophageal reflux disease ?K21.9 - Gastro-esophageal reflux disease without esophagitis (ICD-10) Hypertension ?I10 - Essential (primary) hypertension (ICD-10) Hyperlipidemia ?E78.5 - Hyperlipidemia, unspecified (ICD-10) Malignant neoplasm of colon (1992) ?C18.9 - Malignant neoplasm of colon, unspecified (ICD-10) Cerumen impaction ?H61.20 - Impacted cerumen, unspecified ear (ICD-10) Granuloma annulare ?L92.0 - Granuloma annulare (ICD-10) Health care directive on file ?Z78.9 - Other specified health status (ICD-10) Surgical History Coronary artery disease status post coronary stent insertion ?I25.10 - Atherosclerotic heart disease of [place] coronary artery without angina pectoris (ICD-10) ?Z95.5 - Presence of coronary angioplasty implant and graft (ICD-10) History of hand surgery ?Z98.890 - Other specified postprocedural states (ICD-10) Status post coronary artery stent placement (1999) ?Z95.5 - Presence of coronary angioplasty implant and graft (ICD-10) History of surgery on right wrist ?Z98.890 - Other specified postprocedural states (ICD-10) History of shoulder surgery ?Z98.890 - Other specified postprocedural states (ICD-10) History of partial surgical removal of colon (1992) ?Z90.49 - Acquired absence of other specified parts of digestive tract (ICD-10) History of cataract extraction ?Z98.49 - Cataract extraction status, unspecified eye (ICD-10) Family History Other Diabetes Social History What is your current living situation?: I presently have a place to live Problems where you live: no known problems Problems where you live details: N/A In the past 12 months, utilities in danger of being shut off: no In past 12 months, lack of transportation kept you from medical appts, meetings, work, or getting things needed for daily living: no In the past 12 mos, have been you worried that your food would run out before you had money to buy more?: never true In the past 12 mos, the food you bought just didn't last and you didn't have money to buy more?: never true Highest level of school completed/degree received: Associate degree: occupational, technical, vocational program Smoking Status: Former smoker Do you use any of these nicotine containing products: None Second hand tobacco smoke exposure: No How often do you have a drink containing alcohol: never How often do you have six or more drinks on one occasion: Never AUDIT-C Alcohol total score: 0 Non-prescribed substance use: denies use Caffeine: Yes How often does anyone, including family, friends and others, physically hurt you: never How often does anyone, including family, friends and others, insult or talk down to you: never How often does anyone, including family, friends and others, threaten you with harm: never How often does anyone, including family, friends and others, scream or curse at you: never service: No Exam Narrative: Exam Narrative: Well-nourished well-developed patient in no acute distress. Alert and oriented x3. Hard of hearing. Answers questions appropriately. Patient was the tachypneic or tachycardic. Breathing without difficulty. HEENT: Normocephalic atraumatic. Conjunctivae are moist without any icterus noted. Dry mucous membranes. Posterior pharynx is normal. Neck is soft with an enlarged thyroid. Cardiovascular: Heart is regular rate and rhythm S1 and S2 are present with a soft 1/6 systolic murmur. Lungs: Clear to auscultation bilaterally no wheezes rhonchi or rales are appreciated. Patient takes deep breaths without any discomfort. Abdomen: Soft and nontender nondistended with normal bowel sounds. Extremities: Bilateral lower extremities are without pitting edema. Normal DP and PT pulses. Skin: Well perfused without any obvious rashes. Patient has a tannish hue to the skin of her face and neck. Const: Vital Signs, click to edit/add: Vital Signs - 24 hr 09/12/25 10:03 09/12/25 10:15 09/12/25 10:30 Temperature 98 F Pulse Rate [Pulse Oximeter] 74 72 Respiratory Rate 18 18 Blood Pressure [Ri ght Upper Arm] 149/71 H 161/66 H Pulse Oximetry 95 94 95 Oxygen Delivery Me thod Room Air Room Air 09/12/25 11:00 Temperature Pulse Rate [Pulse Oximeter] 64 Respiratory Rate 16 Blood Pressure [Ri ght Upper Arm] 135/61 Pulse Oximetry 95 Oxygen Delivery Me thod Room Air Course Course ED Course: Past medical records were reviewed. Patient had a CT scan done of her head mid July-this was normal. EKG, read by me, shows normal sinus rhythm with a premature ventricular complex, pulse 68. CBC was unremarkable. Chemistry show a low potassium at 2.7, chloride 90, magnesium low at 1.4. LFTs show a total bili of 4.9, direct bili of 3.5, AST of 223, ALT 126, alkaline phosphatase of 361. Ammonia level elevated at 50.8. CRP elevated at 2. IV established and patient was given 40 mEq over potassium and 20 mEq of IV potassium along with 1 g of IV magnesium. Given her elevated LFTs proceeded with MRCP which shows choledocholithiasis. Discussed with Dr. Pina, GI at [facility] and Dr. Holden, hospitalist who accept the patient for transfer. Vital Signs Vital signs: Initial Vital Signs Temperature 98 F 09/12/25 10:03 Temperature Source Temporal Artery Scan 09/12/25 10:03 Pulse Rate 74 09/12/25 10:03 Respiratory Rate 18 09/12/25 10:03 Blood Pressure 149/71 H 09/12/25 10:03 Blood Pressure Mean 97 09/12/25 10:03 Blood Pressure Position Semi-Fowlers 09/12/25 10:03 Pulse Oximetry 95 09/12/25 10:03 Oxygen Delivery Method Room Air 09/12/25 10:03 Vital Signs Temperature 98 F 09/12/25 10:03 Pulse Rate 74 09/12/25 10:03 Respiratory Rate 18 09/12/25 10:03 Blood Pressure 149/71 H 09/12/25 10:03 Pulse Oximetry 95 09/12/25 10:03 Oxygen Delivery Method Room Air 09/12/25 10:03 Temperature 98 F 09/12/25 10:03 Pulse Rate 64 09/12/25 11:00 Respiratory Rate 16 09/12/25 11:00 Blood Pressure 135/61 09/12/25 11:00 Pulse Oximetry 95 09/12/25 11:00 Oxygen Delivery Method Room Air 09/12/25 11:00 Medications Administered Medications: Discontinued Medications Generic Name Dose Route Start Last Admin Trade Name Freq PRN Reason Stop Dose Admin Magnesium Sulfate/Dextrose 1 gm in 100 mls @ 100 mls/hr 09/12/25 11:54 09/12/25 14:24 Magnesium Sulf 1 G/100 Ml IVPB 09/12/25 12:53 Infused ONCE ONE Infusion Potassium Chloride 10 meq in 100 mls @ 100 mls/hr 09/12/25 12:00 09/12/25 14:25 Potassium Chloride IVPB 09/12/25 14:29 55 mls/hr Q90M THEODORE Infusion Potassium Chloride 40 meq 09/12/25 11:52 09/12/25 12:10 Potassium Chloride 10 Meq Capsule Er PO 09/12/25 11:53 40 meq ONCE ONE Administration Medical Decision Making MDM Narrative Medical decision making narrative: 84-year-old female with choledocholithiasis 1 month postop cholecystectomy. Patient will be transferred for further management. Lab Data Lab results reviewed: Yes I reviewed the patient's lab results Labs: Lab Results 09/12/25 Range/Units 11:00 WBC 6.69 (4.50-11.00) K/uL RBC 4.29 (4.00-5.20) m/uL Hgb 13.9 (12.0-16.0) gm/dL Hct 42.0 (33.0-51.0) % MCV 98 (80-100) fL MCH 32 (26-34) pg MCHC 33 (32-36) gm/dL RDW Coeff of Claudia 13.2 (11.5-15.5) % Plt Count 219 (140-440) K/uL Neut % (Auto) 72.7 H (42.0-72.0) % Lymph % (Auto) 18.1 L (20-44) % [place] % (Auto) 7.2 (0.0-11.0) % Eos % (Auto) 1.0 (0.0-7.0) % Baso % (Auto) 0.7 (0.0-3.0) % Neut # (Auto) 4.90 (1.7-7.0) K/uL Lymph # (Auto) 1.20 (0.90-2.90) K/uL [place] # (Auto) 0.50 (0.00-0.90) K/UL Eos # (Auto) 0.07 (0.00-0.50) K/uL Baso # (Auto) 0.05 (0.00-0.30) K/uL Abs Immat Gran (auto) 0.02 (0.00-0.30) K/uL Imm/Tot Granulo (auto) 0.3 % Sodium 136 (135-149) mmol/L Potassium 2.7 L* (3.6-5.1) mmol/L Chloride 90 L (96-114) mmol/L Carbon Dioxide 36 H (20-32) mmol/L Anion Gap 10 (7-15) mEq/L BUN 19 (7-30) mg/dL Creatinine 0.8 (0.5-1.5) mg/dL Estimated GFR 73 ml/min Glucose 140 H (60-115) mg/dL Lactate 1.4 (0.5-1.9) mmol/L Calcium 9.8 (8.4-10.6) mg/dL Magnesium 1.4 L (1.5-2.6) mg/dL Total Bilirubin 4.9 H (0.1-1.5) mg/dL Direct Bilirubin 3.5 H (0.0-0.5) mg/dL AST 223 H (12-35) U/L ALT 126 H (4-35) U/L Alkaline Phosphatase 361 H (40-150) U/L Ammonia 50.8 H (13.1-30.0) umol/L Troponin I < 0.01 (0.01-0.04) ng/mL C-Reactive Protein 2.0 H (0.5-1.0) mg/dL NT-Pro-B Natriuret Pep 241 (See Note) pg/mL Total Protein 7.5 (6.0-8.3) g/dL Albumin 3.9 (3.3-5.0) g/dL Lipase 35 (23-300) U/L Procalcitonin 0.53 H (<0.50) ng/mL TSH 2.220 (0.270-4.20) uIU/mL SARS-CoV-2 (PCR) Negative SARS-CoV-2 (Negative) Monoscreen Negative (Negative) Influenza Type A (PCR) Negative PCR FLU A (Negative) Influenza Type B (PCR) Negative PCR FLU B (Negative) Imaging Data MRI - abdomen: Attestation: I have reviewed the pertinent imaging results. Radiologist's impression: TECHNIQUE: Abdominal MRI T1-T2 axial and coronal. No intravenous gadolinium. Heavily T2 weighted MRCP with 3D reconstructions. COMPARISON : MRI abdomen 07/09/2025. FINDINGS: Liver: No new liver mass or fatty infiltration. No change. Biliary tree: Gallbladder is no longer visualized surgically removed. Early intrahepatic biliary dilatation. Mildly prominent left hepatic ducts. Filling defect in the distal common bile duct measuring at least 8 millimeters. Well-demonstrated coronal T2 series 14, image 18. Distal common bile duct 9 millimeters. Minimal edema in the gregg hepatis. Pancreas: The duct is normal caliber no peripancreatic phlegmon or fluid. Adrenal glands, spleen, kidneys: No change no new significant abnormalities. Lymph nodes: Stable no new adenopathy. Miscellaneous: Disc degeneration and scoliosis lumbar spine. Stable. IMPRESSION: 1. Probable distal common bile duct stone and early biliary dilatation. 2. Recent cholecystectomy. 3. Minimal edema gregg hepatis correlate with any signs of cholangitis. ECG Data Attestation: I personally reviewed and interpreted this ECG as follows: Discharge Plan Discharge Clinical Impression: Choledocholithiasis Patient Disposition: [facility] Condition: Stable Prescriptions: No Action aspirin 325 mg tablet 325 mg PO DAILY hydrochlorothiazide 25 mg tablet 25 mg PO QAM Qty: 90 3RF lorazepam 0.5 mg tablet 0.5 mg PO .every 6 hrs PRN mirtazapine 7.5 mg tablet 7.5 mg PO QHS Qty: 30 2RF simvastatin 40 mg tablet 40 mg PO HS levothyroxine 75 mcg tablet 75 mcg PO DAILY omeprazole 20 mg capsule,delayed release(DR/EC) 20 mg PO DAILY Stand Alone Forms: [facility] Info Instructions
[2025-09-12 11:16] LABS: Lactate* 1.4 mmol/L (0.5-1.9)
[2025-09-12 11:21] LABS: Hematocrit* 42.0 % (33.0-51.0); Hemoglobin* 13.9 gm/dL (12.0-16.0); Immature Granulocytes Abs Auto 0.02 K/uL (0.00-0.30); Immature Granulocytes Pct Auto 0.3 %; Mean Corpuscular HGB Conc 33 gm/dL (32-36); Mean Corpuscular Hemoglobin 32 pg (26-34); Mean Corpuscular Volume 98 fL (80-100); RDW Coefficient of Variation % 13.2 % (11.5-15.5); Red Blood Count* 4.29 m/uL (4.00-5.20); White Blood Count* 6.69 K/uL (4.50-11.00)
[2025-09-12 11:24] LABS: Lymphocytes Absolute Auto 1.20 K/uL (0.90-2.90); Slide Review Reflex No
[2025-09-12 11:34] LABS: Chloride* 90 mmol/L (96-114)
[2025-09-12 11:35] LABS: Albumin* 3.9 g/dL (3.3-5.0); Sodium* 136 mmol/L (135-149)
[2025-09-12 11:38] LABS: Alanine Aminotransferase* 126 U/L (4-35); Alkaline Phosphatase* 361 U/L (40-150); Anion Gap 10 mEq/L (7-15); Aspartate Amino Transferase* 223 U/L (12-35); Bilirubin Direct* 3.5 mg/dL (0.0-0.5); Bilirubin Total* 4.9 mg/dL (0.1-1.5); Blood Urea Nitrogen* 19 mg/dL (7-30); Carbon Dioxide* 36 mmol/L (20-32); Creatinine* 0.8 mg/dL (0.5-1.5); Estimated Glomerular Filt Rate 73 ml/min; Total Protein* 7.5 g/dL (6.0-8.3)
[2025-09-12 11:39] LABS: Calcium* 9.8 mg/dL (8.4-10.6); Glucose* 140 mg/dL (60-115)
[2025-09-12 11:47] LABS: Potassium* 2.7 mmol/L (3.6-5.1)
[2025-09-12 11:55] LABS: Mono Screen* Negative (Negative); Procalcitonin* 0.53 ng/mL (<0.50)
[2025-09-12 11:58] LABS: PCR FLU A Negative PCR FLU A (Negative); PCR FLU B Negative PCR FLU B (Negative); SARS PCR* Negative SARS-CoV-2 (Negative)
[2025-09-12 12:04] LABS: NT Pro B Type NatriureticPept* 241 pg/mL (See Note)
--- NOTE | 2025-09-12 12:05 | CRLHL7_ITS ---
For Patients: As a result of the Century Cures Act, medical imaging exams and procedure reports are released immediately into your electronic medical record. You may view this report before your referring provider. If you have questions, please contact your health care provider. INDICATION: Elevated liver function study. Previous gallbladder surgery. TECHNIQUE: Abdominal MRI T1-T2 axial and coronal. No intravenous gadolinium. Heavily T2 weighted MRCP with 3D reconstructions. COMPARISON : MRI abdomen 07/09/2025. FINDINGS: Liver: No new liver mass or fatty infiltration. No change. Biliary tree: Gallbladder is no longer visualized surgically removed. Early intrahepatic biliary dilatation. Mildly prominent left hepatic ducts. Filling defect in the distal common bile duct measuring at least 8 millimeters. Well-demonstrated coronal T2 series 14, image 18. Distal common bile duct 9 millimeters. Minimal edema in the gregg hepatis. Pancreas: The duct is normal caliber no peripancreatic phlegmon or fluid. Adrenal glands, spleen, kidneys: No change no new significant abnormalities. Lymph nodes: Stable no new adenopathy. Miscellaneous: Disc degeneration and scoliosis lumbar spine. Stable. IMPRESSION: 1. Probable distal common bile duct stone and early biliary dilatation. 2. Recent cholecystectomy. 3. Minimal edema gregg hepatis correlate with any signs of cholangitis. Dictated by Eyad Cee MD @ 09/12/2025 2:12:49 PM (Electronically Signed)
[2025-09-12] MEDS: POTASSIUM CHLORIDE 10 MEQ CAPSULE ER 40 MEQ PO (12:10)
[2025-09-12] MEDS: POTASSIUM CHLORIDE 10 MEQ/100 ML PIGGYBACK 100 MEQ IVPB ×2 (12:14→16:12)
[2025-09-12 13:09] LABS: Ammonia* 50.8 umol/L (13.1-30.0)
[2025-09-12] MEDS: MAGNESIUM SULF 1 G/100 ML 1 GM/100 ML PIGGYBACK IVPB (13:28)
== END 2025-09-12 21:16 | disposition short-term general hospital (02) ==
PROVIDERS: Emergency Provider Family Medicine; PCP Family Medicine
DX: K80.50 Calculus of bile duct without cholangitis or cholecystitis without obstruction (principal)
CPT/HCPCS: 36415; 74181; 80048; 80076; 81001; 82140; 83605; 83690; 83735; 83880; 84145; 84443; 84484; 85025; 86140; 86308; 87086; 87636; 93005; 94761; 96365; 96366; 99285; A9270; J3475; J3480; J7030

== ENCOUNTER 2025-09-12 21:09 | Outpatient (CLI) | payer MEDICARE, OTHER, SELFPAY | END 2025-09-12 21:10 | disposition home or self-care (01) | LOC: AMB 09-17 18:16 | PROVIDERS: PCP Family Medicine; Visit Provider Emergency Medicine | DX: K80.50 Calculus of bile duct without cholangitis or cholecystitis without obstruction (principal); R53.1 Weakness | CPT/HCPCS: A0425; A0429 ==

== ENCOUNTER 2025-09-19 14:24 | Outpatient (CLI) | payer MEDICARE, OTHER, SELFPAY | END 2025-09-19 14:25 | disposition home or self-care (01) | PROVIDERS: PCP Family Medicine; Visit Provider Family Medicine | DX: K80.50 Calculus of bile duct without cholangitis or cholecystitis without obstruction (principal); R41.0 Disorientation, unspecified | CPT/HCPCS: 80076; 82140 ==

== ENCOUNTER 2025-09-27 11:09 | Emergency (ER) | payer MEDICARE, OTHER, SELFPAY ==
--- OUTSIDE RECORDS SUMMARY | 2025-09-12 18:00 | XMS_ITS | Continuity of Care Document ---
Author Organization [facility] Address [address] [address] [place] [address] Phone Care Team Providers Care Band Splitter Name Role Phone Kali Cortes MD Unavailable Unavailable Procedures Procedure Date Ugi Endo; W/balloon Dilat Esop Ugi Endo; W/endo Ultrasound Ex Advance Directives Directive Yes / No Effective Date File Name No Information Encounters Encounter Description Practice Location Reason(s) For Visit Diagnoses Date Provider Providers Copied on Encounter [facility], [address] [address], [place], [place], [id number], tel:[phone] [facility] No Information 5 Sophia Bass. [address] [place] [address], [id number], [place]. tel:[phone] [facility], [address] [address], [place], [place], [id number], tel:[phone] [facility] No Information 5 Emerson Dowling. [address] [place] [address], [id number], [place]. tel:[phone] Referring Provider: Josey Montano, [address] [place] [address], [id number] . tel:[phone] Family History Family Member Type Diagnosis Age At Onset No Information Payers Payer name Insurance type Covered republican ID Authoriza tion(s) Medicare NGS MB [id number] [employer] Signature Medicare Supplement CI [id number] Social History Type Description Quantity Date Captured [...]
--- OUTSIDE RECORDS SUMMARY | 2025-09-12 18:00 | XMS_ITS | Continuity of Care Document ---
Author Organization [facility] Address [address] [address] [place] [address] Phone Care Team Providers Care Waste Specialist Name Role Phone Kali Cortes MD Unavailable Unavailable Procedures Procedure Date Ugi Endo; W/balloon Dilat Esop Ugi Endo; W/endo Ultrasound Ex Advance Directives Directive Yes / No Effective Date File Name No Information Encounters Encounter Description Practice Location Reason(s) For Visit Diagnoses Date Provider Providers Copied on Encounter [facility], [address] [address], [place], [place], [id number], tel:[phone] [facility] No Information 5 Sophia Bass. [address] [place] [address], [id number], [place]. tel:[phone] [facility], [address] [address], [place], [place], [id number], tel:[phone] [facility] No Information 5 Emerson Dowling. [address] [place] [address], [id number], [place]. tel:[phone] Referring Provider: Josey Montano, [address] [place] [address], [id number] . tel:[phone] Family History Family Member Type Diagnosis Age At Onset No Information Payers Payer name Insurance type Covered libertarian ID Authoriza tion(s) Medicare NGS MB [id number] [employer] Medicare Supplement CI [id number] Social History Type Description Quantity Date Captured [...]
[2025-09-27] VITALS (34 sets, daily range): BP systolic 124–181; BP diastolic 60–99; PULSE 65–82; RESP 10–29; TEMP 36.8; O2SAT 91–100
--- OUTSIDE RECORDS SUMMARY | 2025-09-27 11:11 | XMS_ITS | Clinical Summary ---
Author Organization [facility] Address [address] [place] [id number] Care Team Providers Care Maintenance Truck Driver Name Role Phone None Primary Care Provider Unavailabl e Allergies No known active allergies Medications hydroCHLOROthia zide 25 mg tablet Take 25 mg by mouth once daily. Active levothyroxine (SYNTHROID) 75 mcg tablet Take 75 mcg by mouth before breakfast. Active omeprazole 20 mg tablet Take 20 mg by mouth once daily. Active simvastatin (ZOCOR) 40 mg tablet Take 40 mg by mouth at bedtime. Active beta-carotene(A )-vits C,E/mins (OCUVITE ORAL) Take 1 Tablet by mouth once daily. Active aspirin 325 mg tablet Take 325 mg by mouth once daily with a meal. Active mirtazapine (REMERON) 7.5 mg as half tablet Take 7.5 mg by mouth at bedtime. Active amoxicillin-cla vulanate (AUGMENTIN) 875-125 mg tabletIndicatio ns:ABDOMEN/PELV IS INFECTION Take 1 Tablet by mouth two times daily with meals for 9 doses. 9 Tablet 5 09/14/20 25 Discontinue d(*IP Discontinue d) amoxicillin-cla vulanate (AUGMENTIN) 500-125 mg tabletIndicatio ns:ABDOMEN/PELV IS INFECTION Take 1 Tablet by mouth two times daily with meals for 9 doses. 9 Tablet 09/14/2025 1:22 PM INTERLOCKER MAINTAINER 5 09/19/20 25 Active Problems Problem Noted Date Diagnosed Date S/P cholecystectomy 09/12/2025 Choledocholithiasis 09/12/2025 Depression 03/22/2014 Hypothyroidism 06/01/2009 Coronary atherosclerosis 03/31/2009 Esophageal reflux 03/31/2009 Malignant neoplasm of colon 03/31/2009 Obesity 03/31/2009 Pure hypercholesterolemia 03/31/2009 Encounters Date Type Department Care Team Description 5 11:01 AM INTERLOCKER MAINTAINER Anesthesia Event [address] [address] Thien June MD Grill, Meagan Ann, AMI 5 10:11 AM INTERLOCKER MAINTAINER - 5 10:51 AM INTERLOCKER MAINTAINER Surgery [address] [address] Kali Cortes MD ENDOSCOPIC RETROGRADE CHOLANGIOPANCREATOGRAPHY 5 Travel 5 10:03 PM INTERLOCKER MAINTAINER - 5 2:21 PM INTERLOCKER MAINTAINER Hospital Encounter [address] [address] s, U Hospitalist Brian Jones MD Chaudhry, Saadia Zafar, MD Choledocholithiasis (Primary Dx) Discharge Disposition: Home Self Care 5 2:46 PM CDT Anesthesia Event [facility] [address] [place] [address] Emiliano Riojas MD 5 1:10 PM CDT - 5 3:25 PM CDT Surgery [facility] [address] [place] [address] Josey Norman MD ENDOSCOPIC ULTRASOUND UPPER and TTS balloon dilation 5 12:04 PM CDT - 5 5:24 PM CDT Hospital Encounter [facility] [address] [place] [address] Josey Norman MD Discharge Disposition: Health Care Facility Not On List 5 Travel 5 Lab Requisition [facility] [phone] Dawn Abbott MD from Last 3 Months Social History Tobacco Use Types Packs/Day Years Used Date Smoking Tobacco: Never Assessed Comments Unknown Sex and Gender Information Value Date Recorded Sex Assigned at Not on file Legal Sex Female 11:34 AM CDT Gender Identity Not on file Sexual Orientation Not on file Obstetrics History Last Filed Vital Signs Vital Sign Reading Time Taken Comments Blood Pressure 136/63 09/14/2025 8:40 AM INTERLOCKER MAINTAINER Pulse 59 09/14/2025 8:40 AM INTERLOCKER MAINTAINER Temperature 36.2 C (97.2 F) 09/14/2025 8:40 AM INTERLOCKER MAINTAINER Respiratory Rate 16 09/14/2025 8:40 AM INTERLOCKER MAINTAINER Oxygen Saturation 98% 09/14/2025 8:40 AM INTERLOCKER MAINTAINER Inhaled Oxygen Concentration - - Weight 70.8 kg (156 lb) 09/14/2025 6:00 AM INTERLOCKER MAINTAINER Height 167.6 cm (5' 6) 07/11/2025 12:05 PM CDT Body Mass Index 25.18 07/11/2025 12:05 PM CDT Plan of Treatment Health Maintenance Due Date Last Done Comments Tetanus booster 1951 Depression screening for age 12+ 1952 BMI (ht and wt on same day) for age 18+ 1958 Pneumococcal series for age 50+ (1 of 2 - PCV) 1959 Zoster (shingles) series for age 50+ (1 of 2) 1990 DEXA/DXA scan for age 65+ 2005 RSV vaccine for adults or (1 - 1-dose 75+ series) 2015 Influenza Vaccine (#1) 2025 Hepatitis B series for 19+ Aged Out N o longer eligible based on patient's age to complete this topic Procedures Procedure Name Priority Date/Time Associated Diagnosis Comments SCAN CORRESP-EKG RESULTS 025 1:08 PM INTERLOCKER MAINTAINER SCAN CORRESP-IMAGING 09/16/2025 1:08 PM INTERLOCKER MAINTAINER LIPASE Early AM 09/14/2025 7:20 AM INTERLOCKER MAINTAINER HEPATIC FUNCTION PANEL Early AM 7:20 AM INTERLOCKER MAINTAINER CO2,TOTAL Early AM 09/14/2025 7:20 AM INTERLOCKER MAINTAINER WHITE BLOOD COUNT Early AM 09/14/2025 7:2 0 AM INTERLOCKER MAINTAINER HEMOGLOBIN Early AM 09/14/2025 7:20 AM INTERLOCKER MAINTAINER CREATININE Early AM 09/14/2025 7:20 AM INTERLOCKER MAINTAINER POTASSIUM Early AM 09/14/2025 7:20 AM INTERLOCKER MAINTAINER SODIUM Early AM 09/14/2025 7:20 AM INTERLOCKER MAINTAINER XR ERCP BILIARY ONLY Routine 09/13/2025 11:40 AM INTERLOCKER MAINTAINER ENDOTRACHEAL TUBE Routine 09/13/2025 11:21 AM INTERLOCKER MAINTAINER ENDOTRACHEAL TUBE Routine 09/13/2025 11:21 AM INTERLOCKER MAINTAINER ENDOTRACHEAL TUBE Routine 09/13/2025 11:21 AM INTERLOCKER MAINTAINER ENDOSCOPIC RETROGRADE CHOLANGIOPANCREATOGRAPHY 09/13/2025 10:56 AM INTERLOCKER MAINTAINER ENDOSCOPY 09/13/2025 10:27 AM INTERLOCKER MAINTAINER HEPATIC FUNCTION PANEL Early AM 7:25 AM INTERLOCKER MAINTAINER CBC W PLT NO DIFF Early AM 09/13/2025 7:2 5 AM INTERLOCKER MAINTAINER BASIC METABOLIC PANEL Early AM 09/13/2025 7:25 AM INTERLOCKER MAINTAINER BASIC METABOLIC PANEL Timed 09/12/2025 11:44 PM INTERLOCKER MAINTAINER MAGNESIUM Timed 09/12/2025 11:44 PM INTERLOCKER MAINTAINER SCAN-CARDIAC STRIP 09/12/2025 12:00 AM INTERLOCKER MAINTAINER ENDOSCOPIC ULTRASOUND UPPER 03/2025 2:39 PM CDT see dictation ENDOSCOPY 07/11/2025 2:38 PM CDT LAB TRACKING EVENT Routine 07/10/2025 12:00 PM CDT PATH TISSUE EXAM Routine 07/10/2025 9:26 AM CDT from Last 3 Months Results * SCAN CORRESP-EKG RESULTS (09/16/2025 1:08 PM INTERLOCKER MAINTAINER) Narrative 09/16/2025 1:08 PM INTERLOCKER MAINTAINER Ordered by an unspecified provider. us Other Clinical Staff OTHER Final Resul t * SCAN CORRESP-IMAGING (09/16/2025 1:08 PM INTERLOCKER MAINTAINER) Anatomical Region Laterality Modality Other Narrative 09/16/2025 1:08 PM INTERLOCKER MAINTAINER Ordered by an unspecified provider. us Other Clinical Staff OTHER Final Resul t * WHITE BLOOD COUNT (09/14/2025 7:20 AM INTERLOCKER MAINTAINER) WHITE BLOOD COUNT 6.3 4.5 - 11.0 thou/cu mm 09/14/2025 7:36 AM INTERLOCKER MAINTAINER [facility] NRBC 0.0 % 09/14/2025 7:36 AM INTERLOCKER MAINTAINER [facility] ABS NRBC 0.0 thou /cu mm 09/14/2025 7:36 AM INTERLOCKER MAINTAINER [facility] Blood BLOOD SPECIMEN / Unknown Butterfly / Unknown 09/14/2025 7:20 AM INTERLOCKER MAINTAINER 09/14/2025 7:33 AM INTERLOCKER MAINTAINER Result [facility] Kari Leong MD HEMATOLOGY Final R esult [facility] SENDOUT INTERNAL ZIP [address] [place] [phone] * HEMOGLOBIN (09/14/2025 7:20 AM INTERLOCKER MAINTAINER) HEMOGLOBIN 12.3 12.0 - 16.0 g/dL 09/14/2025 7:36 AM INTERLOCKER MAINTAINER [facility] MCV 97 80 - 100 fL 09/14/2025 7:36 AM INTERLOCKER MAINTAINER [facility] Blood BLOOD SPECIMEN / Unknown Butterfly / Unknown 09/14/2025 7:20 AM INTERLOCKER MAINTAINER 09/14/2025 7:33 AM INTERLOCKER MAINTAINER Result [facility] Kari Leong MD HEMATOLOGY Final R esult [facility] SENDOUT INTERNAL ZIP [phone] [place] [address] * SODIUM (09/14/2025 7:20 AM INTERLOCKER MAINTAINER) SODIUM 136 136 - 145 mmol/L 09/14/2025 8:38 AM INTERLOCKER MAINTAINER [facility] Blood BLOOD SPECIMEN / Unknown Butterfly / Unknown 09/14/2025 7:20 AM INTERLOCKER MAINTAINER 09/14/2025 7:33 AM INTERLOCKER MAINTAINER Kari Leong MD CHEMISTRY Final R esult [facility] SENDOUT INTERNAL ZIP [address] [address] [place] [address] * POTASSIUM (09/14/2025 7:20 AM INTERLOCKER MAINTAINER) POTASSIUM 4.3 3.5 - 5.1 mmol/L 09/14/2025 8:39 AM [facility] Blood BLOOD SPECIMEN / Unknown Butterfly / Unknown 09/14/2025 7:20 AM INTERLOCKER MAINTAINER 09/14/2025 7:33 AM INTERLOCKER MAINTAINER Kari Leong MD CHEMISTRY Final R esult [facility] SENDOUT INTERNAL ZIP [address] [address] [place] [address] * (ABNORMAL) CREATININE (09/14/2025 7:20 AM INTERLOCKER MAINTAINER) eGFR 39(L) >90 mL/min/1.7 3m2 09/14/2025 8:39 AM INTERLOCKER MAINTAINER [facility] Comment:As of 2022, eG FR is calculated by the CKD-EPI creatinine equation without race adjustment. eGFR can be influenced by muscle mass, exercise, and diet. The reported eGFR is an estimation only and is only applicable if the renal function is stable. CREATININE 1.35(H) 0.50 - 0.90 mg/dL 09/14/2025 8:39 AM INTERLOCKER MAINTAINER [facility] Blood BLOOD SPECIMEN / Unknown Butterfly / Unknown 09/14/2025 7:20 AM INTERLOCKER MAINTAINER 09/14/2025 7:33 AM INTERLOCKER MAINTAINER us Kari Leong MD CHEMISTRY Final R esult Performing Organization Address City/[facility]/ZIP Co de Phone Number [facility] SENDOUT INTERNAL ZIP [address] [place] [address] * CO2,TOTAL (09/14/2025 7:20 AM INTERLOCKER MAINTAINER) CO2,TOTAL 23 22 - 29 mmol/L 09/14/2025 8:39 AM INTERLOCKER MAINTAINER [facility] Blood BLOOD SPECIMEN / Unknown Butterfly / Unknown 09/14/2025 7:20 AM INTERLOCKER MAINTAINER 09/14/2025 7:33 AM INTERLOCKER MAINTAINER Result [facility] us Kari Leong MD CHEMISTRY Final R esult Performing Organization Address City/[facility]/ZIP Co de Phone Number [facility] SENDOUT INTERNAL ZIP [address] [place] [phone] * LIPASE (09/14/2025 7:20 AM INTERLOCKER MAINTAINER) LIPASE 13.1 13.0 - 60.0 IU/L 09/14/2025 8:39 AM INTERLOCKER MAINTAINER [facility] Blood BLOOD SPECIMEN / Unknown Butterfly / Unknown 09/14/2025 7:20 AM INTERLOCKER MAINTAINER 09/14/2025 7:33 AM INTERLOCKER MAINTAINER Result [facility] us Kari Leong MD CHEMISTRY Final R esult Performing Organization Address City/[facility]/ZIP Co de Phone Number [facility] SENDOUT INTERNAL ZIP [address] [place] [phone] * (ABNORMAL) HEPATIC FUNCTION PANEL (09/14/2025 7:20 AM INTERLOCKER MAINTAINER) Only the most recent of2 resultswithin the time period is included. ALBUMIN 3.2(L) 4.0 - 4.9 g/dL 09/14/2025 8:39 AM INTERLOCKER MAINTAINER [facility] PROTEIN,TOTAL 6.7 6.0 - 8.0 g/dL 09/14/2025 8:39 AM INTERLOCKER MAINTAINER [facility] BILIRUBIN,TOTAL 2.6(H) 0.0 - 1.2 mg/dL 09/14/2025 8:39 AM INTERLOCKER MAINTAINER [facility] BILIRUBIN,DIRECT 1.6(H) 0.0 - 0.2 mg/dL 09/14/2025 8:39 AM INTERLOCKER MAINTAINER [facility] BILIRUBIN,INDIRE CT 1.0(H) 0.2 - 0.8 mg/dL 09/14/2025 8:39 AM INTERLOCKER MAINTAINER [facility] ALK PHOSPHATASE 286(H) 35 - 104 IU/L 09/14/2025 8:39 AM INTERLOCKER MAINTAINER [facility] ALT (SGPT) 92(H) 10 - 35 IU/L 09/14/2025 8:39 AM INTERLOCKER MAINTAINER [facility] AST (SGOT) 128(H) 10 - 35 IU/L 09/14/2025 8:39 AM INTERLOCKER MAINTAINER [facility] Blood BLOOD SPECIMEN / Unknown Butterfly / Unknown 09/14/2025 7:20 AM INTERLOCKER MAINTAINER 09/14/2025 7:33 AM INTERLOCKER MAINTAINER us Kari Leong MD CHEMISTRY Final R esult [facility] SENDOUT INTERNAL [facility] [id number] [place] [phone] * XR ERCP BILIARY ONLY (09/13/2025 11:40 AM INTERLOCKER MAINTAINER) Anatomical Region Laterality Modality GALLBLADDER, PANCREAS, LIVER Com puted Radiography 09/13/2025 11:4 0 AM INTERLOCKER MAINTAINER Impressions 09/13/2025 11:54 AM INTERLOCKER MAINTAINER Fluoroscopic images obtained during ERCP. For additional details, see the procedure report. Narrative 09/13/2025 11:54 AM INTERLOCKER MAINTAINER For Patients: As a result of the 21st Century Cures Act, medical imaging exams and procedure reports are released immediately into your electronic medical record. You may view this report before your referring provider. If you have questions, please contact your health care provider. EXAM: XR ERCP BILIARY ONLY LOCATION: [facility] DATE: 09/13/2025 INDICATION: free text)->ERCP COMPARISON: None. TECHNIQUE: Exam performed by technical illustrator. RADIATION DOSE: KORY 90.38 mGy FINDINGS: BILE DUCTS: Prominent common bile duct with lower filling defect suggestive of choledocholithiasis. Cholecystectomy clips. PANCREATIC DUCT: Not imaged. Procedure Note Chip Conklin MD - 09/13/2025 For Patients: As a result of the Cures Act, medical imagingexams and procedure reports are released immediately into your electronicmedical record. You may view this report before your referring provider.If you have questions, please contact your health care provider. EXAM: XR ERCP BILIARY ONLY LOCATION: [facility] DATE: 09/13/2025 INDICATION: free text)->ERCP COMPARISON: None. TECHNIQUE: Exam performed by technical illustrator. RADIATION DOSE: KORY 90.38 mGy FINDINGS: BILE DUCTS: Prominent common bile duct with lower filling defectsuggestive of choledocholithiasis. Cholecystectomy clips. PANCREATIC DUCT: Not imaged. IMPRESSION: Fluoroscopic images obtained during ERCP. For additional details, see theprocedure report. Kali Cortes MD FLUOROSCOPY Final Result * HCHG TUBE PR1, HCHG STYLET PR1, HCHG MOUTHPIECE PR1 (09/13/2025 11:21 AM INTERLOCKER MAINTAINER) Narrative Barbara Collier CRNA - 09/13/2025 11:21 AM INTERLOCKER MAINTAINER Barbara Collier CRNA 09/13/2025 11:22 AM Procedure: ETT Patient location during procedure: OR ETT Properties Mask Ventilation: easy and oral airway Final Technique: direct laryngoscopy Type: straight Location: oral Cuffed: yes Tube Size: 7.0 mm Stylet: yes Laryngoscope Blade: Allen Blade Size: 2 Cormack-Lehane Grade View: 1 Insertion Attempts: 1 Placement Verification: auscultation, end tidal CO2, symmetrical chest wall movement and cuff palpation Assessment: pharynx clear, atraumatic and dentition unchanged Secured at: 21 Measured From: lips Tooth guard used and removed: yes Difficulty: 0 (not difficult) Thien June MD ANESTHESIA PX NOTE ORDERABLES Final Result * ENDOSCOPY (09/13/2025 10:27 AM INTERLOCKER MAINTAINER) 09/13/2025 10:2 7 AM INTERLOCKER MAINTAINER Narrative Transcriptions Kali Cortes MD - 09/13/2025 11:38 AM CST Patient Name: Nalini Stark Procedure Date: 09/13/2025 Gender: Female Date of : 1940 Admit Type: Inpatient Procedure: ERCP Proceduralist: Kali Cortes MD - [facility] Indications/Pre-Op Diagnosis: Bile duct stone(s) Medications: General Anesthesia Procedure Description: The patient had risks, benefits and alternatives explained to andgave informed consent. The patient had a stable cardiopulmonary status and judged an adequate candidate for conscious sedation. The endoscope [id number] was passed through the mouth, and advanced to the duodenum and used to inject contrast into the bileduct. The ERCP was accomplished without difficulty. The patient toleratedthe procedure well. Complications: No immediate complications. Estimated Blood Loss & Specimen: Estimated blood loss: none. Specimen collected: None Findings: The scope was passed under direct vision through the upper GI tract.The entire examined stomach was normal. The examined duodenum was normal. The major papilla was normal. The bile duct was deeply cannulatedwith the short-nosed traction sphincterotome and guidewire. Contrast was injected. I personally interpreted the bile duct images. There wasbrisk flow of contrast through the ducts. Image quality was adequate.Contrast extended to the hepatic ducts. The lower third of the main bile duct contained one stone, which was 6 mm in diameter. Biliarysphincterotomy was made with a traction (standard) sphincterotome. There was no post-sphincterotomy bleeding. The biliary tree was swept with a 9 mm balloon starting at the bifurcation. One stone was removed. No stones remained. Impressions/Post-Op Diagnosis: - Choledocholithiasis was found. Complete removal was accomplished by biliary sphincterotomy and balloon extraction. Recommendation: - Watch for pancreatitis, bleeding, perforation, and cholangitis. Kali Cortes MD 09/13/2025 11:38:34 AM This report has been signed electronically. Note Initiated On: 09/13/2025 10:27 AM Total Procedure Duration Time 0 hours 12 minutes 58 seconds Kali Cortes MD PROCEDURE ORD Final Result * (ABNORMAL) CBC W PLT NO DIFF (09/13/2025 7:25 AM [facility]) WHITE BLOOD COUNT 6.3 4.5 - 11.0 thou/cu mm 09/13/2025 7:42 AM [facility] RED BLOOD COUNT 3.47(L) 4.00 - 5.20 mil/cu mm 09/13/2025 7:42 AM [facility] HEMOGLOBIN 11.2(L) 12.0 - 16.0 g/dL 09/13/2025 7:42 AM [facility] HEMATOCRIT 33.2 33.0 - 51.0 % 09/13/2025 7:42 AM [facility] MCV 96 80 - 100 fL 09/13/2025 7:42 AM [facility] MCH 32.3 26.0 - 34.0 pg 09/13/2025 7:42 AM [facility] MCHC 33.7 32.0 - 36.0 g/dL 09/13/2025 7:42 AM [facility] RDW 13.5 11.5 - 15.5 % 09/13/2025 7:42 AM [facility] PLATELET COUNT 188 140 - 440 thou/cu mm 09/13/2025 7:42 AM INTERLOCKER MAINTAINER [facility] MPV 10.4 6.5 - 11.0 fL 09/13/2025 7:42 AM [facility] NRBC 0.0 % 09/13/2025 7:42 AM [facility] ABS NRBC 0.0 thou /cu mm 09/13/2025 7:42 AM [facility] Blood BLOOD SPECIMEN / Unknown Venipuncture / Unknown 09/13/2025 7:25 AM INTERLOCKER MAINTAINER 09/13/2025 7:39 AM [facility] Brian Du MD HEMATOLOGY Ilene l Result [facility] SENDOUT INTERNAL ZIP [address] [place] [phone] * (ABNORMAL) BASIC METABOLIC PANEL (09/13/2025 7:25 AM [facility]) Only the most recent of2 resultswithin the time period is included. SODIUM 139 136 - 145 mmol/L 09/13/2025 8:08 AM [facility] POTASSIUM 3.2(L) 3.5 - 5.1 mmol/L 09/13/2025 8:08 AM [facility] CHLORIDE 102 98 - 107 mmol/L 09/13/2025 8:08 AM [facility] CO2,TOTAL 29 22 - 29 mmol/L 09/13/2025 8:08 AM [facility] ANION GAP 8 5 - 18 09/13/2025 8:08 AM [facility] GLUCOSE 135(H) 70 - 99 mg/dL 09/13/2025 8:08 AM [facility] CALCIUM 9.2 8.8 - 10.4 mg/dL 09/13/2025 8:08 AM [facility] Comment: Reference ranges for this test were updated on 09/10/2024 to reflect our healthy population more accurately. Reference range changes are not retroactively applied to results, but previous results using the same methodology can be interpreted in the context of the new reference range. BUN 13 8 - 23 mg/dL 09/13/2025 8:08 AM [facility] CREATININE 0.87 0.50 - 0.90 mg/dL 09/13/2025 8:08 AM INTERLOCKER MAINTAINER [facility] BUN/CREAT RATIO 15 10 - 20 8:08 AM INTERLOCKER MAINTAINER [facility] eGFR 66(L) >90 mL/min/1. 73m2 09/13/2025 8:08 AM INTERLOCKER MAINTAINER [facility] Comment:As of 2022, eG FR is calculated by the CKD-EPI creatinine equation without race adjustment. eGFR can be influenced by muscle mass, exercise, and diet. The reported eGFR is an estimation only and is only applicable if the renal function is stable. Blood BLOOD SPECIMEN / Unknown Venipuncture / Unknown 09/13/2025 7:25 AM INTERLOCKER MAINTAINER 09/13/2025 7:39 AM INTERLOCKER MAINTAINER Result [facility] Brian Du MD CHEMISTRY Ilene l Result Performing Organization Address City/[facility]/ZIP Co de Phone Number [facility] SENDOUT INTERNAL ZIP [address] [place] [phone] * MAGNESIUM (09/12/2025 11:44 PM INTERLOCKER MAINTAINER) MAGNESIUM 1.7 1.6 - 2.4 mg/dL 09/13/2025 12:13 AM INTERLOCKER MAINTAINER [facility] Blood BLOOD SPECIMEN / Unknown Venipuncture / Unknown 09/12/2025 11:44 PM INTERLOCKER MAINTAINER 09/12/2025 11:52 PM INTERLOCKER MAINTAINER Result [facility] Brian Du MD CHEMISTRY Ilene l Result [facility] SENDOUT INTERNAL ZIP [address] [place] [phone] * SCAN-CARDIAC STRIP (09/12/2025 12:00 AM INTERLOCKER MAINTAINER) Narrative 09/12/2025 12:00 AM INTERLOCKER MAINTAINER Ordered by an unspecified provider. Result [facility] Other Clinical Staff OTHER Final Resul t * ENDOSCOPY (07/11/2025 2:38 PM CDT) 07/11/2025 2:38 PM CDT Narrative Transcriptions Josey Norman MD - 07/11/2025 3:51 PM CDT [facility] Patient Name: Nalini Stark Procedure Date: 07/11/2025 Gender: Female Date of : 1940 Admit Type: Outpatient Procedure: Upper EUS Proceduralist: Josey Norman MD Indications/Pre-Op Diagnosis: Elevated liver enzymes; 84F who presented to [facility] with weakness found tohave acute cholecystitis status post laparoscopic cholecystectomy with uptrendingtransaminases. Total bilirubin downtrending but still elevated. For EUS for further evaluation and ERCP if indicated. Medications: Monitored Anesthesia Care Procedure Description: Risk of bleeding, infection, perforation, pancreatitis, need for surgery, remote chance of and alternatives were discussed, andthe patient gave informed consent. The endoscope [id number] was introduced through the mouth, and advanced [...] 12:00 PM CDT 07/10/2025 2:48 PM CDT Dawn Abbott MD LAB BILL ONLY Final Re sult [facility] [address] [place] [address], * PATH TISSUE EXAM (07/10/2025 9:26 AM CDT) Case Report Pathology Report Case: [id number] Authorizing Provider: Dawn Abbott MD Collected: 07/10/2025 0926 Ordering Location: [facility] Received: 07/10/2025 1500 Pathologist: Sergio Ortega MD Specimen: Gallbladder 07/15/2025 11:22 AM CDT [facility] Final Diagnosis A) GALLBLADDER, CHOLECYSTECTOMY: 1. Benign biliary cysts with rupture, foreign body giant cell reaction, fibrosis and abscess formation 2, Extensive, marked chronic cholecystitis 3. Cholelithiasis 4. Negative for dysplasia and malignancy 5. One benign reactive pericystic lymph node 07/15/2025 11:22 AM CDT [facility] at 1122 CDT Clinical Information Ms. Stark is a 84 y.o. with acute cholecystitis who undergoes cholecystectomy. 07/15/2025 11:22 AM CDT [facility] Gross Description A) Received in [...] is green/brown and velvety with no polyps. Body Die Maker sections are submitted as follows: 1. Cystic duct margin (en face, inked blue); cystic duct lymph node 2. Remainder of cystic duct lymph node 3-8. Mass, bottling equipment sales representative 3-4. Mass with closest liver bed 5-6. Mass invading muscularis with adjacent mucosa 7-8. Additional bottling equipment sales representative mass 9. Body Die Maker uninvolved gallbladder wall from neck ADW 07/11/2025 07/15/2025 11:22 AM CDT [facility] Microscopic Description The final diagnosis is based on microscopic examination of appropriate sections of all specimens. 07/15/2025 11:22 AM T [facility]-C EN[facility]AL LABORATORY Additional Information Interpreted at [facility], Central Laboratory - [address] [facility] [address] [address] 07/15/2025 11:22 AM CDT [facility]-C ENTRAL LABORATORY Other SPECIMEN FROM GALLBLADDER / Unknown 07/10/2025 9:26 AM CDT 07/10/2025 3:01 PM CDT us Dawn Abbott MD PATHOLOGY/CYTOLOGY Final Result [facility] [address] [place] [address], [place] from Last 3 Months Insurance MEDICARE PART A HB ONLY MEDICARE PART B HB ONLY MEDICARE PB ONLY Advance Directives * Full Code (Latest Code Status on File) Date Activated Date Inactivated Comments 09/12/2025 10:31 PM 09/14/2025 4:26 PM Question Answer Comments Code Status Discussion: Other * Full Code Date Activated Date Inactivated Comments 07/11/2025 5:39 PM 07/11/2025 7:44 PM Question Answer Comments Code Status Discussion: Unable to Assess Preferences, Provider to review later Care Teams Maintenance Truck Driver Relationship Specialty Start Date End Date None . PCP - General 07/11/25
--- NOTE | 2025-09-27 12:05 | ED_ITS ---
HPI - Weakness General Date Seen: 09/27/25 Chief complaint: Weakness Stated complaint: abdominal pain Time Seen by Provider: 09/27/25 11:10 Source: patient and family Mode of arrival: ambulatory Limitations: no limitations History of Present Illness HPI Narrative: Patient is an 85-year-old female presenting to the emergency department for weakness. She has a history of dementia, coronary artery disease, cholecystectomy on 07/10/2025 and stone removal for choledocholithiasis on 09/12/2025. She is here with family and they states she has been getting weaker ever since her initial surgery for her gallbladder removal. She began to have symptoms again on September 12 and came to the emergency department when she was then diagnosed with choledocholithiasis. She was transferred to another hospital at that time and the stone was removed. She was discharged and they states she continues to have this weakness. She has been progressively getting worsened over the past week she has needed to use a walker with no previous history of needing a walker. She has been having decreased oral intake and she also states she is not drinking enough fluids. She has not been having any pain. Has not been noticing any diarrhea or constipation. Has been having increased shortness of breath just walking around the house which is abnormal for her. Denies any chest pain. Has not been having any fevers, chills, cough. Not aware of any sick contacts. Her states that she is either laying in bed or sitting up in her chair but she is not moving very much compared to baseline. Family states there is no history of blood clots. Patient has no other complaints at this time other than stating she just feels weak and tired. Related Data Home Medications ?Medication ?Instructions ?Recorded ?Confirmed levothyroxine 75 mcg tablet 75 mcg PO DAILY 07/10/25 1 11/27/24 omeprazole 20 mg capsule,delayed 20 mg PO DAILY 09/27/25 release Previous Rx's ?Medication ?Instructions ?Recorded mirtazapine 7.5 mg tablet 7.5 mg PO QHS #60 tabs 09/19 cholestyramine 4 gram oral powder 4 g PO BID #60 ea for suspension in a packet (Cholestyramine Light) Allergies Allergy/AdvReac Type Severity Reaction Status Date / Time tetanus toxoid, adsorbed Allergy Unknown Unknown Verified 11/22/25 13:08 Review of Systems Status of ROS: Reports: 10 or more systems reviewed and unremarkable except as noted in History and below PFSH PFSH Medical History Dementia ?F03.90 - Unspecified dementia, unspecified severity, without behavioral disturbance, psychotic disturbance, mood disturbance, and anxiety (ICD-10) Macular degeneration ?H35.30 - Unspecified macular degeneration (ICD-10) Hypothyroidism ?E03.9 - Hypothyroidism, unspecified (ICD-10) Hearing loss ?H91.90 - Unspecified hearing loss, unspecified ear (ICD-10) Gastroesophageal reflux disease ?K21.9 - Gastro-esophageal reflux disease without esophagitis (ICD-10) Hypertension ?I10 - Essential (primary) hypertension (ICD-10) Hyperlipidemia ?E78.5 - Hyperlipidemia, unspecified (ICD-10) Malignant neoplasm of colon (1992) ?C18.9 - Malignant neoplasm of colon, unspecified (ICD-10) Cerumen impaction ?H61.20 - Impacted cerumen, unspecified ear (ICD-10) Granuloma annulare ?L92.0 - Granuloma annulare (ICD-10) Health care directive on file ?Z78.9 - Other specified health status (ICD-10) Surgical History Hx laparoscopic cholecystectomy ?Z90.49 - Acquired absence of other specified parts of digestive tract (ICD- 10) Coronary artery disease status post coronary stent insertion ?I25.10 - Atherosclerotic heart disease of picayune coronary artery without angina pectoris (ICD-10) ?Z95.5 - Presence of coronary angioplasty implant and graft (ICD-10) History of hand surgery ?Z98.890 - Other specified postprocedural states (ICD-10) Status post coronary artery stent placement (1999) ?Z95.5 - Presence of coronary angioplasty implant and graft (ICD-10) History of surgery on right wrist ?Z98.890 - Other specified postprocedural states (ICD-10) History of shoulder surgery ?Z98.890 - Other specified postprocedural states (ICD-10) History of partial surgical removal of colon (1992) ?Z90.49 - Acquired absence of other specified parts of digestive tract (ICD- 10) History of cataract extraction ?Z98.49 - Cataract extraction status, unspecified eye (ICD-10) Family History Other Diabetes Social History What is your current living situation?: I presently have a place to live Problems where you live: no known problems Problems where you live details: N/A In the past 12 months, utilities in danger of being shut off: no In past 12 months, lack of transportation kept you from medical appts, meetings, work, or getting things needed for daily living: no In the past 12 mos, have been you worried that your food would run out before you had money to buy more?: never true In the past 12 mos, the food you bought just didn't last and you didn't have money to buy more?: never true Highest level of school completed/degree received: Associate degree: occupational, technical, vocational program Smoking Status: Former smoker Do you use any of these nicotine containing products: None Second hand tobacco smoke exposure: No How often do you have a drink containing alcohol: never How often do you have six or more drinks on one occasion: Never AUDIT-C Alcohol total score: 0 Non-prescribed substance use: denies use Caffeine: Yes How often does anyone, including family, friends and others, physically hurt you : never How often does anyone, including family, friends and others, insult or talk down to you: never How often does anyone, including family, friends and others, threaten you with harm: never How often does anyone, including family, friends and others, scream or curse at you: never service: No Exam Narrative: Exam Narrative: Const: Well-nourished, Well-developed, in mild distress Eyes: PERRL, no conjunctival injection, and symmetrical lids HENT: Atraumatic external nose and ears. Moist mucous membranes. Neck: Symmetric, trachea midline, No thyromegaly. CVS: RRR, No murmurs or gallops. Peripheral pulses 2+ and equal in all extr emities RESP: Unlabored respiratory effort. Clear to auscultation bilaterally. GI: Nontender/Nondistended, No rebound or guarding. MSK:Extremities w/o deformity, Normal Active ROM Skin: Warm, Dry. No rashes or lesions. Neuro: Normal Muscle tone, No focal neurological deficits. Psych: Awake, Alert, & Oriented x3. Appropriate mood and affect. Const: Vital Signs, click to edit/add: Vital Signs - 24 hr 09/27/25 11:18 09/27/25 12:21 09/27/25 12:30 Temperature 98.3 F Pulse Rate 68 67 Pulse Rate [Right Pulse Oximeter] 77 Respiratory Rate 18 23 Blood Pressure Blood Pressure [Ri ght Upper Arm] 147/83 H Pulse Oximetry 98 98 96 Oxygen Delivery Me thod Room Air 09/27/25 12:31 09/27/25 12:45 09/27/25 13:01 Temperature Pulse Rate 65 69 68 Pulse Rate [Right Pulse Oximeter] Respiratory Rate 14 12 29 H Blood Pressure 134/60 139/65 Blood Pressure [Ri ght Upper Arm] Pulse Oximetry 91 94 97 Oxygen Delivery Me thod 09/27/25 13:26 09/27/25 13:30 09/27/25 13:32 Temperature Pulse Rate 74 75 Pulse Rate [Right Pulse Oximeter] Respiratory Rate 21 Blood Pressure 151/63 H Blood Pressure [Ri ght Upper Arm] Pulse Oximetry 96 95 Oxygen Delivery Me thod 09/27/25 13:45 09/27/25 14:00 09/27/25 14:02 Temperature Pulse Rate 72 73 Pulse Rate [Right Pulse Oximeter] Respiratory Rate 13 12 16 Blood Pressure 157/60 H Blood Pressure [Ri ght Upper Arm] Pulse Oximetry 96 94 Oxygen Delivery Me thod 09/27/25 14:15 09/27/25 14:30 09/27/25 14:32 Temperature Pulse Rate 73 71 72 Pulse Rate [Right Pulse Oximeter] Respiratory Rate 17 20 22 Blood Pressure 158/65 H Blood Pressure [Ri ght Upper Arm] Pulse Oximetry 92 96 Oxygen Delivery Me thod 09/27/25 14:45 09/27/25 15:00 09/27/25 15:01 Temperature Pulse Rate 74 73 73 Pulse Rate [Right Pulse Oximeter] Respiratory Rate 14 12 Blood Pressure 168/74 H Blood Pressure [Ri ght Upper Arm] Pulse Oximetry 94 94 93 Oxygen Delivery Me thod 09/27/25 15:15 09/27/25 15:30 09/27/25 15:32 Temperature Pulse Rate 74 79 77 Pulse Rate [Right Pulse Oximeter] Respiratory Rate 16 13 Blood Pressure 173/92 H Blood Pressure [Ri ght Upper Arm] Pulse Oximetry 97 100 95 Oxygen Delivery Me thod 09/27/25 15:45 09/27/25 16:00 09/27/25 16:02 Temperature Pulse Rate 71 76 80 Pulse Rate [Right Pulse Oximeter] Respiratory Rate 18 17 Blood Pressure 181/89 H Blood Pressure [Ri ght Upper Arm] Pulse Oximetry 92 96 98 Oxygen Delivery Me thod 09/27/25 16:15 09/27/25 16:30 09/27/25 16:32 Temperature Pulse Rate 75 76 74 Pulse Rate [Right Pulse Oximeter] Respiratory Rate 14 16 16 Blood Pressure 160/64 H Blood Pressure [Ri ght Upper Arm] Pulse Oximetry 96 97 97 Oxygen Delivery Me thod 09/27/25 16:45 09/27/25 17:00 09/27/25 17:02 Temperature Pulse Rate 77 75 74 Pulse Rate [Right Pulse Oximeter] Respiratory Rate 10 L 19 11 L Blood Pressure 160/72 H Blood Pressure [Ri ght Upper Arm] Pulse Oximetry 96 95 92 Oxygen Delivery Me thod Course Vital Signs Vital signs: Initial Vital Signs Temperature 98.3 F 09/27/25 11:18 Temperature Source Temporal Artery Scan 09/27/25 11:18 Pulse Rate 77 09/27/25 11:18 Pulse Rhythm Regular 09/27/25 11:18 Pulse Strength 3+ Normal 09/27/25 11:18 Respiratory Rate 18 09/27/25 11:18 Blood Pressure 147/83 H 09/27/25 11:18 Blood Pressure Mean 104 09/27/25 11:18 Blood Pressure Position Sitting 09/27/25 11:18 Pulse Oximetry 98 09/27/25 11:18 Oxygen Delivery Method Room Air 09/27/25 11:18 Vital Signs Temperature 98.3 F 09/27/25 11:18 Pulse Rate 77 09/27/25 11:18 Respiratory Rate 18 09/27/25 11:18 Blood Pressure 147/83 H 09/27/25 11:18 Pulse Oximetry 98 09/27/25 11:18 Oxygen Delivery Method Room Air 09/27/25 11:18 Temperature 98.3 F 09/27/25 11:18 Pulse Rate 74 09/27/25 17:02 Respiratory Rate 11 L 09/27/25 17:02 Blood Pressure 160/72 H 09/27/25 17:02 Pulse Oximetry 92 09/27/25 17:02 Oxygen Delivery Method Room Air 09/27/25 11:18 Medications Administered Medications: Generic Name Dose Route Start Last Admin Trade Name Erick PRN Reason Stop Dose Admin Heparin Sodium/Dextrose 25,000 unit in 500 mls @ 0 mls/hr 09/27/25 16:15 09/27/25 16:51 Heparin IV 1,300 unit/hr .Q0M THEODORE 26 mls/hr Protocol Administration Per Protocol Discontinued Medications Generic Name Dose Route Start Last Admin Trade Name Erick PRN Reason Stop Dose Admin Heparin Sodium (Porcine) 5,800 unit 09/27/25 16:06 09/27/25 16:49 Heparin 5,000 Unit/0.5 Ml Inj 80 unit/kg (5800 unit) 09/27/25 16:07 5,800 unit IVP Administration ONCE ONE Lactated Ringer's 1,000 mls @ 1,000 mls/hr 09/27/25 12:07 09/27/25 15:42 Lactated Ringers 1000 Ml IV 09/27/25 13:06 Infused .Q1H ONE Infusion Magnesium Sulfate 2 gm in 50 mls @ 25 mls/hr 09/27/25 12:45 09/27/25 15:23 Magnesium Iv IVPB 09/27/25 14:44 Infused ONCE ONE Infusion MDM - Weakness MDM Narrative Medical decision making narrative: Patient has any 5-year-old female presenting to the emergency department for weakness. The differential diagnosis of generalized weakness is broad and includes infection, electrolyte abnormalities, ACS, arrhythmia, hypoglycemia, electrolyte abnormality, respiratory failure, anemia, hypothyroidism, dehydration, medication induced etc. will do an EKG and troponin to the for signs of cardiac abnormalities. With the recent surgeries will check a lipase to make sure she is not having any pancreatitis. An also ordered to look for signs of UTI. Will also check for COVID/flu/RSV. CBC, CMP, magnesium all ordered to look for any abnormalities. With her recent surgeries and decreased ambulation will do a D-dimer to look for signs of a blood clot. Patient's grunting CBC and CMP showed no concerning abnormalities. Her liver enzymes are improving. Urinalysis is not showing a clear UTI. Ago it was a dirty sample. Does not having any dysuria. Viral swabs were negative. EKG and troponin interpreted by myself showed no acute concerning abnormalities. Back her studies her D-dimer is elevated 4.00. Will do CTA of the chest along with a CT scan of the abdomen and pelvis to look to see if there are any abdominal abnormalities considering the multiple recently seen injuries. Magnesium was slightly low also and was replenished. CT of the chest interpreted by myself and the radiologist does show an acute lobar for a PE. Patient is she has a history of colon cancer 30 years ago and due to the cancer but does make her PESI score 115 which is high risk. Her vital signs are stable though and she is satting 96% while walking around the department. CT scan of the abdomen and pelvis return and interpreted by myself and the radiologist. There is inflammation seen in the duodenum and stomach along with inflammation in the ascending colon and hepatic flexure. There Is also a moderate to large amount of fluid seen in the abdomen that starts up by the liver and wraps around to the pelvis and into the spleen. Unsure where this fluid is coming from. I spoke to the on-call general surgeon, Dr. Vallejo, who saw the imaging after asked her to review with them and she is concerned about the amount of fluid and inflammation. She recommends transfer to the [facility] system for GI referral for possible needing another ERCP or endoscopic ultrasound. I spoke to Dr. Hitchcock of [facility] any states this is a reasonable patient to transfer. I then spoke to Dr. Arrieta of the [facility] hospitalist Service and they accepted the patient for transfer. Patient is agreeable to his transfer at this time. Will start the patient on heparin. There is a 4-8 hour delay for transfer. Considering the long wait and the fact that the patient has otherwise. Stable is unlikely any procedures will be done tonight so I did that her eat as she asked multiple times to eat Diagnosis: Lobar pulmonary embolism, duodenitis, colitis, abnormal intra- abdominal fluid Lab Data Labs: Lab Results 09/27/25 09/27/25 09/27/25 Range/Units 11:53 11:54 12:15 WBC 5.25 (4.50-11.00) K/uL RBC 3.86 L (4.00-5.20) m/uL Hgb 12.4 (12.0-16.0) gm/dL Hct 38.1 (33.0-51.0) % MCV 99 (80-100) fL MCH 32 (26-34) pg MCHC 33 (32-36) gm/dL RDW Coeff of Claudia 12.8 (11.5-15.5) % Plt Count 219 (140-440) K/uL Neut % (Auto) 69.3 (42.0-72.0) % Lymph % (Auto) 21.0 (20-44) % [place] % (Auto) 6.9 (0.0-11.0) % Eos % (Auto) 1.5 (0.0-7.0) % Baso % (Auto) 1.1 (0.0-3.0) % Neut # (Auto) 3.64 (1.7-7.0) K/uL Lymph # (Auto) 1.10 (0.90-2.90) K/uL [place] # (Auto) 0.40 (0.00-0.90) K/UL Eos # (Auto) 0.08 (0.00-0.50) K/uL Baso # (Auto) 0.06 (0.00-0.30) K/uL Abs Immat Gran (auto) 0.01 (0.00-0.30) K/uL Imm/Tot Granulo (auto) 0.2 % INR 0.98 (0.91-1.10) APTT 28 (23-33) Seconds D-Dimer Quant (PE/DVT) 4.00 H (0.00-0.50) ug/ml Sodium 139 (135-149) mmol/L Potassium 3.4 L (3.6-5.1) mmol/L Chloride 102 (96-114) mmol/L Carbon Dioxide 27 (20-32) mmol/L Anion Gap 10 (7-15) mEq/L BUN 12 (7-30) mg/dL Creatinine 1.0 (0.5-1.5) mg/dL Estimated GFR 55 ml/min Glucose 122 H (60-115) mg/dL Calcium 9.8 (8.4-10.6) mg/dL Magnesium 1.3 L (1.5-2.6) mg/dL Total Bilirubin 1.8 H (0.1-1.5) mg/dL Direct Bilirubin 0.9 H (0.0-0.5) mg/dL AST 42 H (12-35) U/L ALT 27 (4-35) U/L Alkaline Phosphatase 192 H (40-150) U/L Troponin I < 0.01 (0.01-0.04) ng/mL C-Reactive Protein 0.9 (0.5-1.0) mg/dL Total Protein 6.8 (6.0-8.3) g/dL Albumin 3.6 (3.3-5.0) g/dL Lipase 41 (23-300) U/L Urine Color Vielka A (Yellow) Urine Appearance Slightly Cloudy A (Clear) Urine pH 5.5 (5.0-8.5) Ur Specific Butler 1.020 (1.000-1.030) Urine Protein Negative (Negative) Urine Glucose (UA) Negative (Negative) Urine Ketones Negative (Negative) Urine Blood Trace-intact A (Negative) Urine Nitrite Negative (Negative) Urine Bilirubin Negative (Negative) Urine Urobilinogen 1.0 (0.2-1.0) Ur Leukocyte Esterase Trace A (Negative) Urine RBC 0-2 (0-2) Urine WBC 10-25 A (0-5) Ur Squamous Epith Cells Moderate A (None-Few) Urine Bacteria Moderate A (None) SARS-CoV-2 (PCR) Negative SARS-CoV-2 (Negative) Influenza Type A (PCR) Negative PCR FLU A (Negative) Influenza Type B (PCR) Negative PCR FLU B (Negative) RSV (PCR) Negative PCR RSV (Negative) Lab Acknowledgement Test Added 09/27/25 Range/Units 13:01 WBC (4.50-11.00) K/uL RBC (4.00-5.20) m/uL Hgb (12.0-16.0) gm/dL Hct (33.0-51.0) % MCV (80-100) fL MCH (26-34) pg MCHC (32-36) gm/dL RDW Coeff of Claudia (11.5-15.5) % Plt Count (140-440) K/uL Neut % (Auto) (42.0-72.0) % Lymph % (Auto) (20-44) % [place] % (Auto) (0.0-11.0) % Eos % (Auto) (0.0-7.0) % Baso % (Auto) (0.0-3.0) % Neut # (Auto) (1.7-7.0) K/uL Lymph # (Auto) (0.90-2.90) K/uL [place] # (Auto) (0.00-0.90) K/UL Eos # (Auto) (0.00-0.50) K/uL Baso # (Auto) (0.00-0.30) K/uL Abs Immat Gran (auto) (0.00-0.30) K/uL Imm/Tot Granulo (auto) % INR (0.91-1.10) APTT (23-33) Seconds D-Dimer Quant (PE/DVT) (0.00-0.50) ug/ml Sodium (135-149) mmol/L Potassium (3.6-5.1) mmol/L Chloride (96-114) mmol/L Carbon Dioxide (20-32) mmol/L Anion Gap (7-15) mEq/L BUN (7-30) mg/dL Creatinine (0.5-1.5) mg/dL Estimated GFR ml/min Glucose (60-115) mg/dL Calcium (8.4-10.6) mg/dL Magnesium (1.5-2.6) mg/dL Total Bilirubin (0.1-1.5) mg/dL Direct Bilirubin (0.0-0.5) mg/dL AST (12-35) U/L ALT (4-35) U/L Alkaline Phosphatase (40-150) U/L Troponin I (0.01-0.04) ng/mL C-Reactive Protein (0.5-1.0) mg/dL Total Protein (6.0-8.3) g/dL Albumin (3.3-5.0) g/dL Lipase (23-300) U/L Urine Color (Yellow) Urine Appearance (Clear) Urine pH (5.0-8.5) Ur Specific Butler (1.000-1.030) Urine Protein (Negative) Urine Glucose (UA) (Negative) Urine Ketones (Negative) Urine Blood (Negative) Urine Nitrite (Negative) Urine Bilirubin (Negative) Urine Urobilinogen (0.2-1.0) Ur Leukocyte Esterase (Negative) Urine RBC (0-2) Urine WBC (0-5) Ur Squamous Epith Cells (None-Few) Urine Bacteria (None) SARS-CoV-2 (PCR) (Negative) Influenza Type A (PCR) (Negative) Influenza Type B (PCR) (Negative) RSV (PCR) (Negative) Lab Acknowledgement Test Added Imaging Data CTA chest: Attestation: I have reviewed the pertinent imaging results. Radiologist's impression: 1. Acute right upper lobe pulmonary embolism to the lobar level. 2. Pulmonary emphysema with bilateral fibrotic changes and scarring. Critical findings were discussed with Dr. Kumar by myself at approximately 1405 on 09/27/2025, via telephone. Please note that all CT scans at this facility use dose modulation, iterative reconstruction, and/or weight-based dosing when appropriate to reduce radiation dose to as low as reasonably achievable. Dictated by Darin Brown MD @ 09/27/2025 2:11:[address] scan abdomen pelvis: Attestation: I have reviewed the pertinent imaging results. My impression: I see moderate to large amount of free fluid. Only difference in interpretation compared to radiologist Radiologist's impression: 1. No hydronephrosis or nephrolithiasis bilaterally. No perinephric fluid collection or hematoma. Mild mucosal hyperenhancement of the bilateral collecting systems which may reflect cystitis of infectious or inflammatory etiology. Correlate with urinalysis and culture. 2. Compared to prior CT dated July 09, 2025, interval cholecystectomy. Pneumobilia with no evidence of choledocholithiasis which maybe secondary to sphincterotomy. 3. New small volume abdominopelvic ascites with Hounsfield unit of 5 compatible with simple fluid. No peritoneal enhancement. 4. Mucosal hyperenhancement of the distal gastric body, antrum and 1/2 portions of the duodenum suggestive of gastritis/duodenitis of infectious or inflammatory etiology. 5. Mucosal hyperenhancement with pericolonic fat stranding of the colon, notably the ascending colon and hepatic flexure suggestive of colitis of infectious or inflammatory etiology. 6. Nonobstructive bowel. Moderate stool ball in the rectum which may predispose to stercoral colitis. Please note that all CT scans at this facility use dose modulation, iterative reconstruction, and/or weight-based dosing when appropriate to reduce radiation dose to as low as reasonably achievable. Dictated by Doretha Coughlin MD @ 09/27/2025 2:23:30 PM ECG Data Attestation: I personally reviewed and interpreted this ECG as follows: Prior ECG tracings: available for review Interpretation: Normal sinus rhythm with a rate of 71 beats per minute, normal intervals, normal axis, no ST abnormalities. There are some T-wave inversion seen in the inferior leads that appear consistent with previous EKGs on file Discharge Plan Discharge Clinical Impression: Pulmonary embolism of right upper lobe, Duodenitis, Colitis Intra-abdominal fluid Qualifiers: Ascites type: other type Qualified Code(s): R18.8 - Other ascites Patient Disposition: [facility] Condition: Guarded Prescriptions: No Action mirtazapine 7.5 mg tablet 7.5 mg PO QHS Qty: 60 2RF levothyroxine 75 mcg tablet 75 mcg PO DAILY omeprazole 20 mg capsule,delayed release(DR/EC) 20 mg PO DAILY Cholestyramine Light 4 gram powder in packet 4 g PO BID Qty: 60 6RF Rx Instructions: administer w/meal; avoid other meds within 1hr before or 4-6hr after dose Stand Alone Forms: [facility] Inst[facility]
[2025-09-27 12:22] LABS: Hematocrit* 38.1 % (33.0-51.0); Hemoglobin* 12.4 gm/dL (12.0-16.0); Immature Granulocytes Abs Auto 0.01 K/uL (0.00-0.30); Immature Granulocytes Pct Auto 0.2 %; Lymphocytes Absolute Auto 1.10 K/uL (0.90-2.90); Mean Corpuscular HGB Conc 33 gm/dL (32-36); Mean Corpuscular Hemoglobin 32 pg (26-34); Mean Corpuscular Volume 99 fL (80-100); RDW Coefficient of Variation % 12.8 % (11.5-15.5); Red Blood Count* 3.86 m/uL (4.00-5.20); White Blood Count* 5.25 K/uL (4.50-11.00)
[2025-09-27] MEDS: LACTATED RINGERS 1000 ML 1,000 ML IV (12:26)
[2025-09-27 12:27] LABS: Slide Review Reflex No
[2025-09-27 12:35] LABS: Albumin* 3.6 g/dL (3.3-5.0); Chloride* 102 mmol/L (96-114); Potassium* 3.4 mmol/L (3.6-5.1); Sodium* 139 mmol/L (135-149)
[2025-09-27 12:38] LABS: Alanine Aminotransferase* 27 U/L (4-35); Alkaline Phosphatase* 192 U/L (40-150); Anion Gap 10 mEq/L (7-15); Aspartate Amino Transferase* 42 U/L (12-35); Blood Urea Nitrogen* 12 mg/dL (7-30); Calcium* 9.8 mg/dL (8.4-10.6); Carbon Dioxide* 27 mmol/L (20-32); Creatinine* 1.0 mg/dL (0.5-1.5); Estimated Glomerular Filt Rate 55 ml/min; Glucose* 122 mg/dL (60-115); Total Protein* 6.8 g/dL (6.0-8.3)
[2025-09-27 12:40] LABS: D Dimer Quantitative* 4.00 ug/ml (0.00-0.50)
--- NOTE | 2025-09-27 12:46 | CRLHL7_ITS ---
For Patients: As a result of the Century Cures Act, medical imaging exams and procedure reports are released immediately into your electronic medical record. You may view this report before your referring provider. If you have questions, please contact your health care provider. INDICATION: Weakness, dyspnea, recent cholecystectomy TECHNIQUE: CT chest with 95 mL Omnipaque 350 IV contrast using dedicated pulmonary angiography protocol. MIP reconstructions were created and reviewed. COMPARISON: CT chest abdomen pelvis: 07/09/2025 FINDINGS: Cardiovascular: Acute pulmonary embolism to the lobar level in the right upper lobe. No evidence of right heart strain. Diminished opacification of the distal right upper lobe pulmonary arteries. Lungs and pleura: Moderate to severe emphysema. Subpleural reticulation in the anterior right upper lobe as well as the dependent lower lobes bilaterally. Left lower lobe calcified granuloma. No focal consolidation, pleural effusion, or pneumothorax. Lymph nodes/mediastinum: No enlarged lymph nodes by size criteria. Chest wall: No masses. Lower neck: Unremarkable. Upper abdomen: Please refer to concurrently performed CT abdomen pelvis. Bones: No aggressive osseous lesions. Mild thoracic spinal degenerative changes. IMPRESSION: 1. Acute right upper lobe pulmonary embolism to the lobar level. 2. Pulmonary emphysema with bilateral fibrotic changes and scarring. Critical findings were discussed with Dr. Kumar by myself at approximately 1405 on 09/27/2025, via telephone. Please note that all CT scans at this facility use dose modulation, iterative reconstruction, and/or weight-based dosing when appropriate to reduce radiation dose to as low as reasonably achievable. Dictated by Darin Brown MD @ 09/27/2025 2:11:54 PM (Electronically Signed)
--- NOTE | 2025-09-27 12:46 | CRLHL7_ITS ---
For Patients: As a result of the Century Cures Act, medical imaging exams and procedure reports are released immediately into your electronic medical record. You may view this report before your referring provider. If you have questions, please contact your health care provider. INDICATION: WEAKNESS, RECENT BERTA AND KIDNEY STONE REMOVAL SURGERY TECHNIQUE: CT abdomen and pelvis acquired with 95 cc Isovue 370 IV contrast. COMPARISON: CT chest, abdomen and pelvis on July 09, 2025. MRI abdomen on July 10, 2025. FINDINGS: Lower chest: Please see same day CTA of the chest Liver: Non cirrhotic morphology. No suspicious mass. Gallbladder and bile ducts: Interval cholecystectomy. Pneumobilia within the CBD and intrahepatic biliary ducts which are nondilated. No choledocholithiasis. Pancreas: No mass or inflammation. Spleen: Normal in size. No masses. Adrenal glands: No nodules. Kidneys: Symmetric enhancement with no hydronephrosis or nephrolithiasis bilaterally mild mucosal hyperenhancement of the collecting system, right greater than left (3/175). No suspicious masses, stones, or hydronephrosis. No perinephric fluid collection or hematoma. GI tract: Stomach is decompressed, limiting evaluation. Mucosal hyperenhancement of the distal gastric body, antrum and 1/2 portions of the duodenum (2/154, 3/31, 41). Small and large bowel is normal in caliber without obstruction. Mucosal hyperenhancement of the colon with pericolonic fat stranding, notably the ascending colon and hepatic flexure (3/45, 71). Moderate stool ball in the rectum. No pneumatosis, pneumoperitoneum or portal venous gas. Vasculature: Abdominal aorta is normal in caliber without aneurysm. Marked atherosclerotic calcification. Proximal mesenteric vessels are patent with mild ostial stenoses at the origins of the celiac artery, SMA and ANNA. Patent portal, splenic and bilateral renal veins. Lymph nodes: No enlarged lymph nodes by size criteria. Peritoneum/Abdominal Wall: Small volume abdominopelvic ascites which is new, with no peritoneal enhancement. No sign of mass or infiltration. Pelvis: Bladder is decompressed, limiting evaluation, but appears grossly normal. Uterus appears grossly normal.. Bones: Diffuse osseous demineralization. No acute fracture or traumatic subluxation. Mild to moderate multilevel degenerative changes of the spine. Schmorl`s node at the superior endplate of T10 and T11. IMPRESSION: 1. No hydronephrosis or nephrolithiasis bilaterally. No perinephric fluid collection or hematoma. Mild mucosal hyperenhancement of the bilateral collecting systems which may reflect cystitis of infectious or inflammatory etiology. Correlate with urinalysis and culture. 2. Compared to prior CT dated July 09, 2025, interval cholecystectomy. Pneumobilia with no evidence of choledocholithiasis which maybe secondary to sphincterotomy. 3. New small volume abdominopelvic ascites with Hounsfield unit of 5 compatible with simple fluid. No peritoneal enhancement. 4. Mucosal hyperenhancement of the distal gastric body, antrum and 1/2 portions of the duodenum suggestive of gastritis/duodenitis of infectious or inflammatory etiology. 5. Mucosal hyperenhancement with pericolonic fat stranding of the colon, notably the ascending colon and hepatic flexure suggestive of colitis of infectious or inflammatory etiology. 6. Nonobstructive bowel. Moderate stool ball in the rectum which may predispose to stercoral colitis. Please note that all CT scans at this facility use dose modulation, iterative reconstruction, and/or weight-based dosing when appropriate to reduce radiation dose to as low as reasonably achievable. Dictated by Doretha Coughlin MD @ 09/27/2025 2:23:30 PM (Electronically Signed)
[2025-09-27 13:07] LABS: PCR FLU A Negative PCR FLU A (Negative); PCR FLU B Negative PCR FLU B (Negative); PCR RSV Negative PCR RSV (Negative); SARS PCR* Negative SARS-CoV-2 (Negative)
[2025-09-27 13:12] LABS: Bilirubin Direct* 0.9 mg/dL (0.0-0.5)
[2025-09-27 13:14] LABS: Bilirubin Total* 1.8 mg/dL (0.1-1.5)
[2025-09-27] MEDS: MAGNESIUM IV 2 GM/50 ML PIGGYBACK IVPB (13:31)
[2025-09-27 13:36] LABS: Appearance Urine Slightly Cloudy (Clear)
[2025-09-27] MEDS: HEPARIN 5,000 UNIT/0.5 ML INJ 5800 UNIT IVP (16:49)
[2025-09-27] MEDS: HEPARIN 25,000 UNIT/500 ML BAG 26 UNIT IV (16:51)
[2025-09-27 16:57] LABS: INR 0.98 (0.91-1.10); Prothrombin Time 13.5 Seconds
== END 2025-09-27 18:00 | disposition short-term general hospital (02) ==
PROVIDERS: Emergency Provider Student in an Organized Health Care Education/Training Program; PCP Family Medicine
DX: I26.99 Other pulmonary embolism without acute cor pulmonale (principal); K29.80 Duodenitis without bleeding; K52.9 Noninfective gastroenteritis and colitis, unspecified; R18.8 Other ascites
CPT/HCPCS: 36415; 71275; 74177; 80053; 81001; 82248; 83690; 83735; 84484; 85025; 85027; 85379; 85610; 85730; 86140; 87086; 87631; 93005; 96361; 96365; 96366; 96375; 99285; J1644; J3475; J7120; Q9967

== ENCOUNTER 2025-09-27 17:56 | Outpatient (CLI) | payer MEDICARE, OTHER, SELFPAY | END 2025-09-27 17:57 | disposition home or self-care (01) | LOC: AMB 09-29 18:42 | PROVIDERS: PCP Family Medicine; Visit Provider Family Medicine | DX: I26.99 Other pulmonary embolism without acute cor pulmonale (principal); K29.80 Duodenitis without bleeding | CPT/HCPCS: A0425; A0427 ==